=== PATIENT | female | born 1945 | race Caucasian/White ===

== ENCOUNTER 2022-07-27 20:00 | Emergency (ER) | payer MEDICARE, SELFPAY ==
[2022-07-27 20:09] VITALS: PULSE 93; RESP 16; TEMP 37.2; O2SAT 98; BMI 31.1
[2022-07-27 20:34] LABS: MANUAL DIFF FLAG NO
[2022-07-27 20:35] LABS: Basophils Absolute Auto 0.1 X10*3/uL (0.0-0.2); Basophils Percent Auto 0.5 % (0-2); Eosinophils Absolute Auto 0.1 X10*3/uL (0.0-0.4); Eosinophils Percent Auto 0.5 % (0-4); Hematocrit 47.9 % (37.0-47.0); Hemoglobin 15.8 g/dl (12.0-16.0); Imm Gran Abs Auto 0.03 X10*3/uL (0.00-0.03); Imm Gran Pct Auto 0.3 % (0.0-0.4); Lymphocytes Absolute Auto 1.1 X10*3/uL (1.2-4.9); Lymphocytes Percent Auto 9.9 % (20-40); Mean Corpuscular Hemoglobin 29.9 pg (27.0-33.0); Mean Corpuscular Volume 90.7 fL (80.0-98.0); Mean Platelet Volume 9.2 fL (9.4-12.3); Monocytes Percent Auto 8.8 % (2-11); Neutrophils Absolute Auto 8.7 x10*3/uL (2.0-8.3); Platelet Count 256 X10*3/uL (160-400); Red Blood Count 5.28 X10*6/uL (4.20-5.50); Red Cell Distribution Width 13.5 % (11.0-16.0); White Blood Count 10.9 X10*3/uL (4.8-10.8)
[2022-07-27 20:39] LABS: Appearance Urine Hazy; Color Urine RED; Glucose Urine UA Negative (Negative); Leukocyte Esterase Urine Large (3+) (Negative); Nitrite Urine Positive (Negative); UMIC TRIGGER UACC YES; Urine Blood Large (3+) (Negative); Urine Ketones Negative (Negative); Urine Protein 100 (2+) mg/dL (Neg-Trace)
[2022-07-27 20:43] LABS: Bacteria Urine None Seen (None Seen); RBC Urine >20 /HPF (0-2); Squamous Epithelial Cell Urine 0-2 /HPF (0-2); UACC Culture Trigger YES
[2022-07-27 20:44] LABS: Hyaline Casts Urine 0-2 /LPF (0-2)
[2022-07-27 20:56] LABS: Alanine Aminotransferase 20 U/L (0-31); Albumin Level 4.3 g/dL (3.5-5.0); Alkaline Phosphatase 88 U/L (39-117); Anion Gap 15 (12-20); Aspartate Amino Transferase 19 U/L (5-31); Bilirubin Total 0.6 mg/dL (0.0-1.0); Blood Urea Nitrogen 27 mg/dL (9-16); Calcium 10.7 mg/dL (8.4-10.2); Carbon Dioxide 33 mmol/L (22-29); Chloride 95 mmol/L (96-108); Creatinine Clr Calc Pharmacy 38.5; Estimated Glomerular Filt Rate 46; Glucose Random 99 mg/dL (60-115); Potassium 3.8 mmol/L (3.3-5.1); Sodium 139 mmol/L (135-145); Total Protein 6.9 g/dL (6.5-8.0)
--- NOTE | 2022-07-28 00:08 | ED_ITS ---
HPI - Female Genitourinary General Chief complaint: Urogenital-Female Stated complaint: bladder infection Time Seen by Provider: 07/27/22 23:45 Source: patient and family Mode of arrival: ambulatory Limitations: no limitations History of Present Illness HPI Narrative: patient comes to the emergency room complaining hematuria and dysuria for 1 day. also, patient has suprapubic pressure. Patient states that she has had UTIs in the past and it feels very similar. Patient denies fever or chills, no flank pain. Patient called her primary care physician today, patient was asked to come to the emergency room if she develops any discomfort. Patient has an appointment tomorrow with her PCP Related Data Previous Rx's Medication Instructions Recorded levofloxacin 500 mg tablet 500 mg PO DAILY #7 tabs 07/28/22 phenazopyridine 100 mg tablet 100 mg PO TID 6 doses #6 tabs 07/28/22 Allergies Allergy/AdvReac Type Severity Reaction Status Date / Time Penicillins Allergy Intermediate Rash Verified 07/27/22 20:08 Sulfa (Sulfonamide Allergy Intermediate Rash Verified 07/27/22 20:08 Antibiotics) Review of Systems Review of Systems: Constitutional : No Weight loss, No Fever, No Chills, No Night Sweats, No Fatigue, No Malaise ENT/Mouth : No Hearing loss, No Ear Pain, No Nasal Congestion, No Sinus Pain, No Hoarseness, No sore throat, No Rhinorrhea, No Swallowing Difficulty Eyes: No Eye Pain, No Swelling, No Redness, No Foreign Body, No Discharge, No Vision Changes Cardiovascular : No Chest Pain, No SOB, No Dyspnea on Exertion, No Orthopnea, No Edema, No Palpitations Respiratory : No Cough, No Sputum, No Wheezing, No Smoke Exposure, No Dyspnea Gastrointestinal : No Nausea, No Vomiting, No Diarrhea, No Constipation, No abdominal Pain, No Hematochezia, No Melena Genitourinary : complaining of dysuria, hematuria and urinary frequency and suprapubic pressure, No Urinary Incontinence, No Urgency, No Flank Pain, No Urinary Flow Changes, No Hesitancy Musculoskeletal : No joint pain, No Myalgias, No Joint Swelling Skin : No Skin Lesions, No rash Neuro : No Weakness, No Numbness, No Paresthesias, No Loss of Consciousness, No Dizziness, No Headache Psych : No Anxiety/Panic, No Depression, No SI/HI/AH/VH, No Social Issues, Heme/Lymph: No Bruising, No Bleeding,No Lymphadenopathy Endocrine : No Polyuria, No Polydipsia, No Temperature Intolerance [facility] Past Medical History Medical History (Updated 07/28/22 @ 00:12 by Aline Romero MD) Asthma CHF (congestive heart failure) Hypertension Physical Exam Vital Signs: Vital Signs: Last Vital Signs Temp 98.9 F 07/27/22 20:09 Pulse 93 07/27/22 20:09 Resp 16 07/27/22 20:09 Pulse Ox 98 07/27/22 20:09 O2 Del Method 07/27/22 20:09 BMI result Body Mass Index 31.1 Const: Other: Appearance: Alert. Oriented X3. No acute distress. Eyes: Pupils equal, round and reactive to light. ENT: Pharynx normal. Neck: Normal inspection. Neck supple. No lymph nodes noted. No crepitus CVS: Normal heart rate and rhythm. Pulses normal. Normal S1 and S2 Respiratory: No respiratory distress. Breath sounds normal. No Wheezing. No rales Abdomen: Soft, mild discomfort to palpation in the suprapubic area, no guarding, no rebound, no CVA tenderness Skin: Skin warm and dry. Normal skin color. Normal skin turgor. Extremities: No lower extremity edema. No Lacerations. No Rash Neuro: Oriented X 3. No motor deficit. No sensory deficit. Moving all extremities. No slurred speech. CN 2 through 12 grossly intact Psych: calm, cooperative, normal affect Course Course Course Narrative: patient has a mildly elevated white blood cell count. Patient does have a UTI. Patient is allergic to penicillins and sulfas. Patient will be given Levaquin. First dose given in the emergency room along with phenazopyridine. MDM - Female Genitourinary Lab Data Result diagrams: 07/27/22 20:28 07/27/22 20:28 Labs: Lab Results 07/27/22 07/27/22 07/27/22 Range/Units 20:28 20:28 20:28 WBC 10.9 H (4.8-10.8) X10*3/uL RBC 5.28 (4.20-5.50) X10*6/uL Hgb 15.8 (12.0-16.0) g/dl Hct 47.9 H (37.0-47.0) % MCV 90.7 (80.0-98.0) fL MCH 29.9 (27.0-33.0) pg MCHC 33.0 (31.0-35.0) g/dl RDW 13.5 (11.0-16.0) % Plt Count 256 (160-400) X10*3/uL MPV 9.2 L (9.4-12.3) fL Immature Gran % (Auto) 0.3 (0.0-0.4) % Neut % (Auto) 80.0 H (45-73) % Lymph % (Auto) 9.9 L (20-40) % [place] % (Auto) 8.8 (2-11) % Eos % (Auto) 0.5 (0-4) % Baso % (Auto) 0.5 (0-2) % Lymph # (Auto) 1.1 L (1.2-4.9) X10*3/uL [place] # (Auto) 1.0 (0.1-1.2) X10*3/uL Eos # (Auto) 0.1 (0.0-0.4) X10*3/uL Baso # (Auto) 0.1 (0.0-0.2) X10*3/uL Abs Immat Gran (auto) 0.03 (0.00-0.03) X10*3/uL Absolute Neuts (auto) 8.7 H (2.0-8.3) x10*3/uL Absolute Nucleated RBC 0.000 (0.0-0.012) X10*3/uL Nucleated RBC % (auto) 0.0 (0.0-0.2) /100WBC Sodium 139 (135-145) mmol/L Potassium 3.8 (3.3-5.1) mmol/L Chloride 95 L (96-108) mmol/L Carbon Dioxide 33 H (22-29) mmol/L Anion Gap 15 (12-20) BUN 27 H (9-16) mg/dL Creatinine 1.15 (0.5-1.4) mg/dL Estim Creat Clear Calc 38.5 Estimated GFR 46 Random Glucose 99 (60-115) mg/dL Calcium 10.7 H (8.4-10.2) mg/dL Total Bilirubin 0.6 (0.0-1.0) mg/dL AST 19 (5-31) U/L ALT 20 (0-31) U/L Alkaline Phosphatase 88 (39-117) U/L Total Protein 6.9 (6.5-8.0) g/dL Albumin 4.3 (3.5-5.0) g/dL Urine Color RED Urine Appearance Hazy Urine pH 6.0 (5.0-9.0) Ur Specific [place] 1.020 (1.005-1.025) Urine Protein 100 (2+) H (Neg-Trace) mg/dL Urine Glucose (UA) Negative (Negative) mg/dL Urine Ketones Negative (Negative) mg/dL Urine Blood Large (3+) H (Negative) Urine Nitrite Positive H (Negative) Ur Leukocyte Esterase Large (3+) H (Negative) Urine RBC >20 H (0-2) /HPF Urine WBC 6-10 (0-5) /HPF Ur Squamous Epith Cells 0-2 (0-2) /HPF Urine Bacteria None Seen (None Seen) Hyaline Casts 0-2 (0-2) /LPF Discharge Plan Discharge Clinical Impression: Urinary tract infection Patient Disposition: Home, Self-Care Instructions: Urinary Tract Infection in Older Adults (ED) Additional Instructions: Please follow-up with your primary care physician tomorrow. If you have any worsening or new symptoms, please return to the emergency room or call 911 Prescriptions: New levofloxacin 500 mg tablet 500 mg PO DAILY Qty: 7 0RF phenazopyridine 100 mg tablet 100 mg PO TID Qty: 6 0RF
[2022-07-28] MEDS: Phenazopyridine HCL 100 MG TABLET PO (00:47)
[2022-07-28] MEDS: levoFLOXacin 500 MG TABLET PO (00:47)
== END 2022-07-28 00:55 | disposition home or self-care (01) ==
PROVIDERS: Emergency Provider Emergency Medicine; PCP Nurse Practitioner Family
DX: N39.0 Urinary tract infection, site not specified (principal); B96.20 Unspecified Escherichia coli [E. coli] as the cause of diseases classified elsewhere; I11.0 Hypertensive heart disease with heart failure; I50.9 Heart failure, unspecified
CPT/HCPCS: 36415; 80053; 81001; 85025; 87086; 87186; 99283

== ENCOUNTER 2023-07-25 08:01 | Day surgery (SDC) | payer MEDICARE, SELFPAY ==
[2023-07-20 09:40] VITALS: BMI 30.4
[2023-07-20 14:29] VITALS: BMI 30.4
--- NOTE | 2023-07-22 08:21 | MHC.SHP ---
Pre-Procedural Eval Section A Date of Service: 07/22/23 The patient is an INPATIENT: No Changes since office visit: No Cold of Flu in the past 2 weeks, No New Medical Problems, No Changes in Medication and No Patient answered all questions The History & Physical has been completed within 30 days and I have reviewed it.: Yes Section B Chief Complaint: Age-related nuclear cataract, right eye Allergies: Allergies Allergy/AdvReac Type Severity Reaction Status Date / Time amoxicillin Allergy Intermediate rash/nausea Verified 07/20/23 14:29 losartan Allergy Intermediate Shortness Verified 07/20/23 09:39 of Breath Penicillins Allergy Intermediate Rash/nausea Verified 07/20/23 14:29 Sulfa (Sulfonamide Allergy Intermediate Rash Verified 07/27/22 20:08 Antibiotics) Plan Diagnosis/Plan: Unchanged I have reviewed the history and physical and performed a pertinent physical examination on my patient. No changes have occurred unless specified. Time Spent With Patient Time: Total time managing care of this patient today ____ minutes.
--- OUTSIDE RECORDS SUMMARY | 2023-07-25 08:03 | XMS_ITS | Continuity of Care Document ---
Author Name Unknown Organization [facility] Troy Ball Martinez lt Address [address] [place] [id number] Care Team Providers Care Port Engineer Name Role Phone Ash MURPHY, Dory Mckeon Primary Care Physician [phone] [place] [facility] [place] 01/04/22 - 01/11/22 DIONISIO Ball Adult [address] [place] [address]- Encounter Diagnosis COPD without exacerbation(Discharge Diagnosis) - 01/04/22 Hypertension(Discharge Diagnosis) - 01/04/22 Hyperlipidemia(Discharge Diagnosis) - 01/04/22 Attending Physician: Ash MURPHY, Dory Mckeon Allergies, Adverse Reactions, Alerts Substance Reaction Severity Status amoxicillin Active losartan shortness of breath Active penicillins 1 Active sulfa drugs Rash Active 1rash Immunizations Given and Recorded Vaccine Date Status Refusal Reason SARS-CoV-2 (COVID-19) mRNA-1273 vaccine 1 09/25/21 Recorded SARS-CoV-2 (COVID-19) mRNA-1273 vaccine 01/17/21 R ecorded SARS-CoV-2 (COVID-19) mRNA-1273 vaccine 12/18/20 R ecorded pneumococcal 23-valent vaccine 11/07/11 Recorded diphtheria/tetanus/pertussis, acel(DTaP) 11/07/10 Recorded Not Given Vaccine Date Status Refusal Reason Influenza Virus Vaccine (oldterm) 12/28/19 Not Giv en Patient Refuses 1Result Comment: [facility] Lot [id number] Medications albuterol CFC free 90 mcg/inh inhalation aerosol 2, puffs, Inhalation, Every 4 hours, PRN, # 18 Gm, Refills 5, Tot. Refills 5, Maintenance, :59:00 EDT, Aerosol, Route to Pharmacy Electronically, [id number], [facility] # 50, 155.4, cm, 06/30/21 11:00:00 EDT, He... Start Date: 07/14/21 Status: Ordered Anoro Ellipta 62.5 mcg-25 mcg/inh inhalation powder 1 puffs, Inhalation, Daily, # 60 each, 11 Refills, Maintenance, 07/23/21 13:13:00 EDT, Powder, [facility] # [facility], Partial fill upon patient request if the prescription is for a schedule II opioid drug., 1 puffs Inhalation Daily, 155.4, cm, 06/30/21... Start Date: 07/23/21 Status: Ordered atorvastatin 10 mg oral tablet See Instructions, TAKE ONE TABLET BY MOUTH EVERY DAY, # 90 tablet, 1 Refills, Maintenance, 12/16/2213:28:00 EST, [facility] # [facility], 155.4, cm, 10/22/21 11:57:00 EST, Height Start Date: 12/16/21 Status: Ordered Nasacort Allergy 24HR 55 mcg/inh nasal spray 2 sprays, Nares, Both, Daily, # 16.5 Gm, 5 Refills, Maintenance, 12/28/19 10:55:00 EST, [facility] # [facility], 2 sprays Nares, Both Daily, 155.4, cm, 12/28/19 10:37:00 EST, Height Start Date: 12/28/19 Status: Ordered Sitz bath Sitz bath, See Instructions, # 1 each, Refills 0, Tot. Refills 0, Maintenance, use 2-3x/day, 01/21/21 10:59:00 EDT, Supply Start Date: 01/21/21 Status: Ordered spironolactone 25 mg oral tablet 25 mg, 1, tablet, By Mouth, Daily, replace amlodipine and hctz, # 30 tablet, Refills 0, Tot. Refills 0, Maintenance, 01/04/22 10:39:00 EST, Route to Pharmacy Electronically, [facility] # [facility], Partial fill upon patient request if the prescription is... Start Date: 01/04/22 Status: Ordered Problem List Condition Effective Dates Status Health Status Inform ant Allergic rhinitis(Confirmed) Active COPD without exacerbation(Confirmed) Active Hyperlipidemia(Confirmed) Active Hypertension(Confirmed) Active Lightheadedness(Confirmed) Active Obese class I(Confirmed) Active Osteoporosis(Confirmed) 08/28/15 Active Diagnosis Diagnosis Type Effective Dates Health Status Clinical Service Informant COPD without exacerbation Discharge Diagnosis 01/04/22 Hypertension Discharge Diagnosis 01/04/22 Hyperlipidemia Discharge Diagnosis 01/04/22 Vital Signs Most recent to oldest [Reference Range]: 1 Height 155.4 cm (01/04/22 10:10 AM) Weight 77 kg (01/04/22 10:10 AM) Oxygen Saturation [94-100 %] 97 % (01/04/22 10:10 AM) Pulse Rate [55-90 bpm] 97 bpm *H* (01/04/22 10:10 AM) Body Mass Index [18.5-24.99] 31.89 *>HHI* (01/04/22 10:10 AM) Blood Pressure [90-138/55-84 mm Hg] 137/ 70mm Hg (01/04/22 10:10 AM) Temperature [96.8-100.4 DegF] 97.6 DegF (01/04/22 10:10 AM) Blood pressure sites Arm, right (01/04/22 10:10 AM) Temperature Route Oral (01/04/22 10:10 AM) Weight Obtained Via Standing scale (01/04/22 10:10 AM) Social History Social History Type Response Smoking Status Former smoker, quit more than 30 days ago entered on: 06/21/19 Sex
--- OUTSIDE RECORDS SUMMARY | 2023-07-25 08:03 | XMS_ITS | Continuity of Care Document ---
Author Name Unknown Organization [facility] Troy Ball Martinez lt Address [address] [place] [address]- Care Team Providers Care Cuprous Chloride Helper Name Role Phone Ash MURPHY, Dory Mckeon Primary Care Physician Encounter [facility] [place] Date(s): 07/28/22 - 08/27/22 DIONISIO Ball Adult [address] [place] [address]- Attending Physician: Admtr, Ar8 Admitting Physician: Admtr, Ar8 Referring Physician: Admtr, Ar8 Allergies, Adverse Reactions, Alerts Substance Reaction Severity Status amoxicillin Active losartan shortness of breath Active penicillins 1 Active sulfa drugs Rash Active 1rash Immunizations Given and Recorded Vaccine Date Status Refusal Reason SARS-CoV-2 (COVID-19) mRNA-1273 vaccine 1 04/27/22 Recorded SARS-CoV-2 (COVID-19) mRNA-1273 vaccine 2 09/25/21 Recorded SARS-CoV-2 (COVID-19) mRNA-1273 vaccine 01/17/21 R ecorded SARS-CoV-2 (COVID-19) mRNA-1273 vaccine 12/18/20 R ecorded pneumococcal 23-valent vaccine 11/07/11 Recorded diphtheria/tetanus/pertussis, acel(DTaP) 11/07/10 Recorded Not Given Vaccine Date Status Refusal Reason Influenza Virus Vaccine (oldterm) 12/28/19 Not Giv en Patient Refuses 1Result Comment: [employer] [facility] 2Result Comment: [facility] Lot [id number] Medications albuterol CFC free 90 mcg/inh inhalation aerosol 2, puffs, Inhalation, Every 4 hours, PRN, # 18 Gm, Refills 5, Tot. Refills 5, Maintenance, 03/04/2210:37:00 EDT, Aerosol, Route to Pharmacy Electronically, [id number], [facility] # [facility], 155.4, cm, 03/04/22 10:34:00 EDT, H... Start Date: 03/04/22 Status: Ordered Christine By Mouth, 0 Refills, Maintenance, 03/30/22 11:54:00 EDT, Partial fill upon patient request if the prescription is for a schedule II opioid drug. Start Date: 03/30/22 Status: Ordered Anoro Ellipta 62.5 mcg-25 mcg/inh inhalation powder 1 puffs, Inhalation, Daily, # 60 each, 11 Refills, Maintenance, 03/04/22 10:37:00 EDT, Powder, [facility] # [facility], Partial fill upon patient request if the prescription is for a schedule II opioid drug., 1 puffs Inhalation Daily, 155.4, cm, 03/04/22... Start Date: 03/04/22 Status: Ordered atorvastatin 10 mg oral tablet See Instructions, TAKE ONE TABLET BY MOUTH EVERY DAY, # 90 Unknown, 1 Refills, Maintenance, 06/23/22 16:31:00 EDT, [facility] # [facility], 155.4, cm, 06/03/22 12:42:00 EDT, Height Start Date: 06/23/22 Status: Ordered [place] Saline Nasal Mist 4 times a day, 0 Refills, Maintenance, 03/30/22 11:55:00 EDT, Partial fill upon patient request if the prescription is for a schedule II opioid drug. Start Date: 03/30/22 Status: Ordered chlorthalidone 50 mg oral tablet 1 tablet = 50 mg, By Mouth, Daily, # 90 tablet, 0 Refills, Maintenance, 03/29/22 15:16:00 EDT, Tablet, Partial fill upon patient request if the prescription is for a schedule II opioid drug. Start Date: 03/29/22 Status: Ordered Nasacort Allergy 24HR 55 mcg/inh nasal spray 2 sprays, Nares, Both, Daily, # 16.5 Gm, 5 Refills, Maintenance, 12/28/19 10:55:00 EST, [facility] # [facility], 2 sprays Nares, Both Daily, 155.4, cm, 12/28/19 10:37:00 EST, Height Start Date: 12/28/19 Status: Ordered Sitz bath Sitz bath, See Instructions, # 1 each, Refills 0, Tot. Refills 0, Maintenance, use 2-3x/day, 01/21/21 10:59:00 EDT, Supply Start Date: 01/21/21 Status: Ordered Problem List Condition Confirmation Course Effective Dates Status Health Status Informant Allergic rhinitis Confirmed Active COPD without exacerbation Confirmed Active Hyperlipidemia Confirmed Active Hypertension Confirmed Active Lightheadedness Confirmed Active Obese class I Confirmed Active Osteoporosis Confirmed 08/28/15 Active Primary hyperparathyroidism Confirmed Active Procedures Procedure Date Related Diagnosis Body Site Status Bone density scan 1 10/05/19 Compl eted Bone density scan 2, 3 08/28/15 Co mpleted [address] [place] [address] [facility] Social History Social History Type Response Smoking Status Former smoker, quit more than 30 days ago entered on: 06/21/19 Sex Patient Care team information Personnel Name: Ash MURPHY, Dory Mckeon Address: Address: [address] [place] [id number]
--- OUTSIDE RECORDS SUMMARY | 2023-07-25 08:03 | XMS_ITS | Continuity of Care Document ---
Author Name Unknown Organization [facility] Troy Ball Martinez lt Address [address] [place] [address]- Care Team Providers Care Enrollment Management Vice President Name Role Phone Ash MURPHY, Dory Mckeon Primary Care Physician [phone] Encounter [facility] [place] Date(s): 02/03/22 - 02/10/22 DIONISIO Ball Adult [address] [place] [address]- Encounter Diagnosis Hypertension(Discharge Diagnosis) - 02/05/22 Serum calcium elevated(Discharge Diagnosis) - 02/05/22 Hyperlipidemia(Discharge Diagnosis) - 02/05/22 Attending Physician: Ash MURPHY, Dory Mckeon Referring Physician: Angella ANDERSON, Roger Browne Allergies, Adverse Reactions, Alerts Substance Reaction Severity [...] 1Result Comment: [facility] Lot [id number] Medications albuterol CFC free 90 mcg/inh inhalation aerosol 2, puffs, Inhalation, Every 4 hours, PRN, # 18 Gm, Refills 5, Tot. Refills 5, Maintenance, 219:59:00 EDT, Aerosol, Route to Pharmacy Electronically, [id number], [facility] # 50, 155.4, cm, 06/30/21 11:00:00 EDT, He... Start Date: 07/14/21 Status: Ordered Anoro Ellipta 62.5 mcg-25 mcg/inh inhalation powder 1 puffs, Inhalation, Daily, # 60 each, 11 Refills, Maintenance, 07/23/21 13:13:00 EDT, Powder, [facility] # [facility], Partial fill upon patient request if the prescription is for a schedule II opioid drug., 1 puffs Inhalation Daily, 155.4, cm, 06/30/21... Start Date: 07/23/21 Status: Ordered atorvastatin 10 mg oral tablet See Instructions, TAKE ONE TABLET BY MOUTH EVERY DAY, # 90 tablet, 1 Refills, Maintenance, 12/16/2213:28:00 EST, [facility] # [facility], 155.4, cm, 10/22/21 11:57:00 EST, Height Start Date: 12/16/21 Status: Ordered carvedilol 3.125 mg oral tablet 3.125 mg, 1, tablet, By Mouth, 2 times a day, # 60 tablet, Refills 0, Tot. Refills 0, Maintenance, 02/05/22 15:29:00 EDT, Route to Pharmacy Electronically, [facility] # [facility], Partial fill upon patient request if the prescription is for a schedule II... Start Date: 02/05/22 Status: Ordered Nasacort Allergy 24HR 55 mcg/inh nasal spray 2 sprays, Nares, Both, Daily, # 16.5 Gm, 5 Refills, Maintenance, 12/28/19 10:55:00 EST, [facility] # 50, 2 sprays Nares, Both Daily, 155.4, cm, 12/28/19 10:37:00 EST, Height Start Date: 12/28/19 Status: Ordered Sitz bath Sitz bath, See Instructions, # 1 each, Refills 0, Tot. Refills 0, Maintenance, use 2-3x/day, 01/21/21 10:59:00 EDT, Supply Start Date: 01/21/21 Status: Ordered Problem List Condition Effective Dates Status Health Status Inform ant Allergic rhinitis(Confirmed) Active COPD without exacerbation(Confirmed) Active Hyperlipidemia(Confirmed) Active Hypertension(Confirmed) Active Lightheadedness(Confirmed) Active Obese class I(Confirmed) Active Osteoporosis(Confirmed) 08/28/15 Active Diagnosis Diagnosis Type Effective Dates Health Status Clinical Service Informant Hypertension Discharge Diagnosis 02/05/22 Serum calcium elevated Discharge Diagnosis 02/05/22 Hyperlipidemia Discharge Diagnosis 02/05/22 Vital Signs Most recent to oldest [Reference Range]: 1 Height 155.4 cm (02/03/22 11:49 AM) Weight 75.4 kg (02/03/22 11:49 AM) Oxygen Saturation [94-100 %] 97 % (02/03/22 11:49 AM) Pulse Rate [55-90 bpm] 79 bpm (02/03/22 11:49 AM) Body Mass Index [18.5-24.99] 31.22 *>HHI* (02/03/22 11:49 AM) Blood Pressure [90-138/55-84 mm Hg] 126/ 74mm Hg (02/03/22 11:49 AM) Temperature [96.8-100.4 DegF] 97.8 DegF (02/03/22 11:49 AM) Blood pressure sites Arm, left (02/03/22 11:49 AM) Temperature Route Temporal (02/03/22 11:49 AM) Weight Obtained Via Standing scale (02/03/22 11:49 AM) Social History Social History Type Response Smoking Status Former smoker, quit more than 30 days ago entered on: 06/21/19 Sex
--- OUTSIDE RECORDS SUMMARY | 2023-07-25 08:03 | XMS_ITS | Continuity of Care Document ---
Author Name Unknown Organization [facility] Troy Goodman Martinez lt Address [address] [place] [address]- Care Team Providers Care Heat Treater Name Role Phone Erich Hoskins MD Primary Care Physician Encounter [facility] Date(s): 07/23/21 - 08/22/21 [facility] Troy Goodman Adult [address] [place] [address]- Encounter Diagnosis COPD GOLD class D(Discharge Diagnosis) - 07/23/21 Allergies, Adverse Reactions, Alerts Substance Reaction Severity Status amoxicillin Active penicillins 1 Active sulfa drugs Rash Active 1rash Immunizations Given and Recorded Vaccine Date Status Refusal Reason SARS-CoV-2 (COVID-19) mRNA-1273 vaccine 01/17/21 R ecorded SARS-CoV-2 (COVID-19) mRNA-1273 vaccine 12/18/20 R ecorded pneumococcal 23-valent vaccine 11/07/11 Recorded diphtheria/tetanus/pertussis, acel(DTaP) 11/07/10 Recorded Not Given Vaccine Date Status Refusal Reason Influenza Virus Vaccine (oldterm) 12/28/19 Not Giv en Patient Refuses Medications albuterol CFC free 90 mcg/inh inhalation aerosol 2, puffs, Inhalation, Every 4 hours, PRN, # 18 Gm, Refills 5, Tot. Refills 5, Maintenance, :59:00 EDT, Aerosol, Route to Pharmacy Electronically, [id number], [facility], 155.4, cm, 06/30/21 11:00:00 EDT, He... Start Date: 07/14/21 Status: Ordered Christine Allergy = 60 mg, By Mouth, 2 times a day, 0 Refills, Maintenance, 05/26/21 11:16:00 EDT, Partial fill upon patient request if the prescription is for a schedule II opioid drug. Start Date: 05/26/21 Status: Ordered amLODIPine 5 mg oral tablet See Instructions, TAKE ONE TABLET BY MOUTH EVERY DAY AT BEDTIME, # 90 tablet, 1 Refills, [facility], 155.4, cm, 06/30/21 11:00:00 EDT, Height Start Date: 07/31/21 Status: Ordered Anoro Ellipta 62.5 mcg-25 mcg/inh inhalation powder 1 puffs, Inhalation, Daily, # 60 each, 11 Refills, Maintenance, 07/23/21 13:13:00 EDT, Powder, [facility] # [facility], Partial fill upon patient request if the prescription is for a schedule II opioid drug., 1 puffs Inhalation Daily, 155.4, cm, 06/30/21... Start Date: 07/23/21 Status: Ordered aspirin 81 mg oral delayed release tablet 81 mg, 1, tablet, By Mouth, Daily, # 90 tablet, Refills 3, Tot. Refills 3, Maintenance, 06/26/20 10:45:00 EDT, Route to Pharmacy Electronically, [facility], 155.4, cm, 12/28/19 10:37:00 EST,Height Start Date: 06/26/20 Status: Ordered atorvastatin 10 mg oral tablet 1 tablet = 10 mg, By Mouth, Daily, # 90 tablet, 1 Refills, Maintenance, 06/24/21 14:03:00 EDT, [facility] # [facility], 155.4, cm, 05/26/21 11:13:00 EDT, Height Start Date: 06/24/21 Status: Ordered hydrochlorothiazide 25 mg oral tablet 1, tablet, By Mouth, Daily, # 90 tablet, Refills 3, Route to Pharmacy Electronically, [facility] # [facility], 155.4, cm, 06/30/21 11:00:00 EDT, Height Start Date: 07/31/21 Status: Ordered losartan 100 mg oral tablet 1 tablet = 100 mg, By Mouth, Daily, # 90 tablet, 3 Refills, Maintenance, 07/08/20 16:41:00 EDT, Tablet, [facility] # [facility], 155.4, cm, 07/08/20 16:29:00 EDT, Height Start Date: 07/08/20 Status: Ordered Nasacort Allergy 24HR 55 mcg/inh nasal spray 2 sprays, Nares, Both, Daily, # 16.5 Gm, 5 Refills, Maintenance, 12/28/19 10:55:00 EST, [facility], 2 sprays Nares, Both Daily, 155.4, cm, 12/28/19 10:37:00 EST, Height Start Date: 12/28/19 Status: Ordered Sitz bath Sitz bath, See Instructions, # 1 each, Refills 0, Tot. Refills 0, Maintenance, use 2-3x/day, 01/21/21 10:59:00 EDT, Supply Start Date: 01/21/21 Status: Ordered Problem List Condition Effective Dates Status Health Status Inform ant Allergic rhinitis(Confirmed) Active COPD without exacerbation(Confirmed) Active Shortness of breath(Confirmed) Active Hyperlipidemia(Confirmed) Active Hypertension(Confirmed) Active Lightheadedness(Confirmed) Active Osteoporosis(Confirmed) 08/28/15 Active Diagnosis Diagnosis Type Effective Dates Health Status Cl inical Service Informant COPD GOLD class D Discharge Diagnosis 07/23/21 Non-Specified Social History Social History Type Response Smoking Status Former smoker, quit more than 30 days ago entered on: 06/21/19 Sex
--- OUTSIDE RECORDS SUMMARY | 2023-07-25 08:03 | XMS_ITS | Continuity of Care Document ---
Author Name Unknown Organization [facility] Rex Martinez lt Address [address] [place] [address]- Care Team Providers Care Supervisor Doping Name Role Phone Gato ANDERSON, Erich Barrera Primary Care Physician En[place] [facility] [place] Date(s): 01/21/21 - 01/28/21 [facility] Troy Bondsley Adult [address] [place] [address]- Encounter Diagnosis Ear congestion(Discharge Diagnosis) - 01/21/21 Hemorrhoids(Discharge Diagnosis) - 01/21/21 Attending Physician: Basil AGENT CONTRACT CLERK, Zoe Allergies, Adverse Reactions, Alerts Substance Reaction Severity Status penicillins 1 Active sulfa drugs Rash Active 1rash Immunizations Given and Recorded Vaccine Date Status Refusal Reason SARS-CoV-2 (COVID-19) mRNA-1273 vaccine 01/17/21 R ecorded SARS-CoV-2 (COVID-19) mRNA-1273 vaccine 12/18/20 R ecorded pneumococcal 23-valent vaccine 11/07/11 Recorded diphtheria/tetanus/pertussis, acel(DTaP) 11/07/10 Recorded Not Given Vaccine Date Status Refusal Reason Influenza Virus Vaccine (oldterm) 12/28/19 Not Giv en Patient Refuses Medications aspirin 81 mg oral delayed release tablet 81 mg, 1, tablet, By Mouth, Daily, # 90 tablet, Refills 3, Tot. Refills 3, Maintenance, 06/26/20 10:45:00 EDT, Route to Pharmacy Electronically, [facility] 155.4, cm, 12/28/19 10:37:00 EST,Height Start Date: 06/26/20 Status: Ordered atorvastatin 10 mg oral tablet 1 tablet = 10 mg, By Mouth, Daily, # 90 tablet, 3 Refills, Maintenance, 06/26/20 10:45:00 EDT, [facility] # [facility], 155.4, cm, 12/28/19 10:37:00 EST, Height Start Date: 06/26/20 Status: Ordered Claritin 5 mg oral tablet, chewable 1 tablet = 5 mg, Daily, 0 Refills, Maintenance, 09/27/19 11:32:24 EST Start Date: 09/27/19 Status: Ordered hydrochlorothiazide 25 mg oral tablet 25 mg, 1, tablet, By Mouth, Daily, # 90 tablet, Refills 3, Tot. Refills 3, Maintenance, 06/26/20 10:46:00 EDT, Route to Pharmacy Electronically, [facility], 155.4, cm, 12/28/19 10:37:00 EST,Height Start Date: 06/26/20 Status: Ordered losartan 100 mg oral tablet 1 tablet = 100 mg, By Mouth, Daily, # 90 tablet, 3 Refills, Maintenance, 07/08/20 16:41:00 EDT, Tablet, [facility] # [facility], 155.4, cm, 07/08/20 16:29:00 EDT, Height Start Date: 07/08/20 Status: Ordered Nasacort Allergy 24HR 55 mcg/inh nasal spray 2 sprays, Nares, Both, Daily, # 16.5 Gm, 5 Refills, Maintenance, 12/28/19 10:55:00 EST, [facility] # [facility], 2 sprays Nares, Both Daily, 155.4, cm, 12/28/19 10:37:00 EST, Height Start Date: 12/28/19 Status: Ordered Sitz bath Sitz bath, See Instructions, # 1 each, Refills 0, Tot. Refills 0, Maintenance, use 2-3x/day, 01/21/21 10:59:00 EDT, Supply Start Date: 01/21/21 Status: Ordered Problem List Condition Effective Dates Status Health Status Inform ant Allergic rhinitis(Confirmed) Active Hypertension(Confirmed) Active Osteoporosis(Confirmed) 08/28/15 Active Diagnosis Diagnosis Type Effective Dates Health Status Cl inical Service Informant Ear congestion Discharge Diagnosis 01/21/21 Hemorrhoids Discharge Diagnosis 01/21/21 Vital Signs Most recent to oldest [Reference Range]: 1 Height 155.4 cm (01/21/21 10:13 AM) Weight 76.0 kg (01/21/21 10:13 AM) Oxygen Saturation [94-100 %] 98 % (01/21/21 10:13 AM) Pulse Rate [55-90 bpm] 60 bpm (01/21/21 10:13 AM) Body Mass Index [18.5-24.99] 31.47 *>HHI* (01/21/21 10:13 AM) Blood Pressure [90-138/55-84 mm Hg] 128/ 82mm Hg (01/21/21 10:13 AM) Temperature [96.8-100.4 DegF] 98.9 DegF (01/21/21 10:13 AM) Blood pressure sites Arm, left (01/21/21 10:13 AM) Temperature Route Oral (01/21/21 10:13 AM) Social History Social History Type Response Smoking Status Former smoker, quit more than 30 days ago entered on: 06/21/19 Sex
--- OUTSIDE RECORDS SUMMARY | 2023-07-25 08:03 | XMS_ITS | Continuity of Care Document ---
Author Name Unknown Organization [facility] Troy Goodman Martinez lt Address [address] [place] [address]- Care Team Providers Care Filler In Name Role Phone Ash MURPHY, Dory Mckeon Primary Care Physician Encounter [facility] [place] Date(s): 02/23/22 - 03/02/22 DIONISIO Goodman Adult [address] [place] [address]- Attending Physician: Roger Perales MD Allergies, Adverse Reactions, Alerts Substance Reaction Severity [...] 1Result Comment: [facility] Lot [id number] Medications albuterol CFC free 90 mcg/inh inhalation aerosol 2, puffs, Inhalation, Every 4 hours, PRN, # 18 Gm, Refills 5, Tot. Refills 5, Maintenance, :59:00 EDT, Aerosol, Route to Pharmacy Electronically, [id number], [facility], 155.4, cm, 06/30/21 11:00:00 EDT, He... Start Date: 07/14/21 Status: Ordered Anoro Ellipta 62.5 mcg-25 mcg/inh inhalation powder 1 puffs, Inhalation, Daily, # 60 each, 11 Refills, Maintenance, 07/23/21 13:13:00 EDT, Powder, [facility] # [facility], Partial fill upon patient request if the prescription is for a schedule II opioid drug., 1 puffs Inhalation Daily, 155.4, cm, 06/30/21... Start Date: 07/23/21 Status: Ordered atorvastatin 10 mg oral tablet See Instructions, TAKE ONE TABLET BY MOUTH EVERY DAY, # 90 tablet, 1 Refills, Maintenance, 12/16/2213:28:00 EST, [facility] # [facility], 155.4, cm, 10/22/21 11:57:00 EST, Height Start Date: 12/16/21 Status: Ordered chlorthalidone 25 mg oral tablet 25 mg, 1, tablet, By Mouth, Daily, # 30 tablet, Refills 5, Tot. Refills 5, Maintenance, 03/02/22 13:53:00 EDT, Route to Pharmacy Electronically, [facility] # [facility], Partial fill upon patient requestif the prescription is for a schedule II opioid chito... Start Date: 03/02/22 Status: Ordered Nasacort Allergy 24HR 55 mcg/inh nasal spray 2 sprays, Nares, Both, Daily, # 16.5 Gm, 5 Refills, Maintenance, 12/28/19 10:55:00 EST, [facility] # [facility], 2 sprays Nares, Both [...] Obese class I(Confirmed) Active Osteoporosis(Confirmed) 08/28/15 Active Vital Signs Most recent to oldest [Reference Range]: 1 Height 155.4 cm (02/23/22 2:45 PM) Weight 77.1 kg (02/23/22 2:45 PM) Oxygen Saturation [94-100 %] 95 % (02/23/22 2:45 PM) Pulse Rate [55-90 bpm] 80 bpm (02/23/22 2:45 PM) Body Mass Index [18.5-24.99] 31.93 *>HHI* (02/23/22 2:45 PM) Blood Pressure [90-138/55-84 mm Hg] 157/ 64mm Hg *H* (02/23/22 2:45 PM) Temperature [96.8-100.4 DegF] 98.5 DegF (02/23/22 2:45 PM) Blood pressure sites Arm, left (02/23/22 2:45 PM) Temperature Route Oral (02/23/22 2:45 PM) Weight Obtained Via Standing scale (02/23/22 2:45 PM) Social History Social History Type Response Smoking Status Former smoker, quit more than 30 days ago entered on: 06/21/19 Sex
--- OUTSIDE RECORDS SUMMARY | 2023-07-25 08:04 | XMS_ITS | Continuity of Care Document ---
Author Name Unknown Organization [facility] Troy Goodman Martinez lt Address [address] [place] [address]- Care Team Providers Care Events Associate Name Role Phone Erich Hoskins MD Primary Care Physician [phone] Encounter [facility] [place] Date(s): 07/20/21 - 07/27/21 [facility] Troy Goodman Adult [address] [place] [address]- Attending Physician: Not on Staff, Attending MD Allergies, Adverse Reactions, Alerts Substance Reaction [...] :59:00 EDT, Aerosol, Route to Pharmacy Electronically, [id number], [facility], 155.4, cm, 06/30/21 11:00:00 EDT, He... Start Date: 07/14/21 Status: Ordered Christine Allergy = 60 mg, By Mouth, 2 times a day, 0 Refills, Maintenance, 05/26/21 11:16:00 EDT, Partial fill upon patient request if the prescription is for a schedule II opioid drug. Start Date: 05/26/21 Status: Ordered amLODIPine 5 mg oral tablet 5 mg, 1, tablet, By Mouth, Daily at bedtime, # 90 tablet, Refills 0, Tot. Refills 0, Maintenance, 05/04/21 11:13:00 EDT, Route to Pharmacy Electronically, [facility] # [facility], Partial fill upon patient request if the prescription is for a schedule II... Start Date: 05/04/21 Status: Ordered Anoro Ellipta 62.5 mcg-25 mcg/inh inhalation powder 1 puffs, Inhalation, Daily, # 60 each, 11 Refills, Maintenance, 07/23/21 13:13:00 EDT, Powder, [facility] # [facility], Partial fill upon patient request if the prescription is for a schedule II opioid drug., 1 puffs Inhalation Daily, 155.4, cm, 06/30/21... Start Date: 07/23/21 Status: Ordered aspirin 81 mg oral delayed release tablet 81 mg, 1, tablet, By Mouth, Daily, # 90 tablet, Refills 3, Tot. Refills 3, Maintenance, 06/26/20 10:45:00 EDT, Route to Pharmacy Electronically, [facility], 155.4, cm, 12/28/19 10:37:00 EST,Height Start Date: 06/26/20 Status: Ordered atorvastatin 10 mg oral tablet 1 tablet = 10 mg, By Mouth, Daily, # 90 tablet, 1 Refills, Maintenance, 06/24/21 14:03:00 EDT, [facility] # [facility], 155.4, cm, 05/26/21 11:13:00 EDT, Height Start Date: 06/24/21 Status: Ordered hydrochlorothiazide 25 mg oral tablet 25 mg, 1, tablet, By Mouth, Daily, # 90 tablet, Refills 3, Tot. Refills 3, Maintenance, 06/26/20 10:46:00 EDT, Route to Pharmacy Electronically, [facility], 155.4, cm, 12/28/19 10:37:00 EST,Height Start Date: 06/26/20 Status: Ordered losartan 100 mg oral tablet 1 tablet = 100 mg, By Mouth, Daily, # 90 tablet, 3 Refills, Maintenance, 07/08/20 16:41:00 EDT, Tablet, [facility], 155.4, cm, 07/08/20 16:29:00 EDT, Height Start Date: 07/08/20 Status: Ordered Nasacort Allergy 24HR 55 mcg/inh nasal spray 2 sprays, Nares, Both, Daily, # 16.5 Gm, 5 Refills, Maintenance, 12/28/19 10:55:00 EST, [facility], 2 sprays Nares, [...] Hypertension(Confirmed) Active Lightheadedness(Confirmed) Active Osteoporosis(Confirmed) 08/28/15 Active Social History Social History Type Response Smoking Status Former smoker, quit more than 30 days ago entered on: 06/21/19 Sex
--- OUTSIDE RECORDS SUMMARY | 2023-07-25 08:04 | XMS_ITS | Continuity of Care Document ---
Author Name Unknown Organization [facility] Address [address] [place] [address]- Care Team Providers Care Obiee Obia Solution Architect Name Role Phone Ash MURPHY, Dory Mckeon Primary Care Physician [phone] [place] [facility] [place] [facility] [id number] Date(s): 03/24/22 - 04/23/[address] [address] Attending Physician: Admtr, [id number] Admitting Physician: Admtr, [...] Not Giv en Patient Refuses 1Result Comment: [facility] Lot [id number] Medications albuterol CFC free 90 mcg/inh inhalation aerosol 2, puffs, Inhalation, Every 4 hours, PRN, # 18 Gm, Refills 5, Tot. Refills 5, Maintenance, 03/04/2210:37:00 EDT, Aerosol, Route to Pharmacy Electronically, [id number], [facility], 155.4, cm, 03/04/22 10:34:00 [...] 11 Refills, Maintenance, 03/04/22 10:37:00 EDT, Powder, [facility] # [facility], Partial fill upon patient request if the prescription is for a schedule II opioid drug., 1 puffs Inhalation Daily, 155.4, cm, 03/04/22... Start Date: 03/04/22 Status: Ordered atorvastatin 10 mg oral tablet See Instructions, TAKE ONE TABLET BY MOUTH EVERY DAY, # 90 tablet, 1 Refills, Maintenance, 12/16/2213:28:00 EST, [facility], 155.4, cm, 10/22/21 11:57:00 EST, Height Start Date: 12/16/21 Status: Ordered [place] Saline Nasal Mist 4 times a day, [...] Gm, 5 Refills, Maintenance, 12/28/19 10:55:00 EST, [facility], 2 sprays Nares, [...] Obese class I(Confirmed) Active Osteoporosis(Confirmed) 08/28/15 Active Social History Social History Type Response Smoking Status Former smoker, quit more than 30 days ago entered on: 06/21/19 Sex
--- OUTSIDE RECORDS SUMMARY | 2023-07-25 08:04 | XMS_ITS | Continuity of Care Document ---
Author Name Unknown Organization [facility] Address [address] [address]- Care Team Providers Care Theater Education Teacher Name Role Phone Erich Hoskins MD Primary Care Physician [place] [facility] [place] 10[place] [facility] [address] [address] Attending Physician: Pavan Sauceda MD Admitting Physician: Pavan Sauceda MD Referring Physician: Erich Hoskins MD Allergies, Adverse Reactions, Alerts Substance Reaction [...] :59:00 EDT, Aerosol, Route to Pharmacy Electronically, [id number], [facility], 155.4, cm, 06/30/21 11:00:00 EDT, He... Start Date: 07/14/21 Status: Ordered amLODIPine 5 mg oral tablet See Instructions, TAKE ONE TABLET BY MOUTH EVERY DAY AT BEDTIME, # 90 tablet, 1 Refills, [facility], 155.4, cm, 06/30/21 11:00:00 EDT, Height Start Date: 07/31/21 Status: Ordered Anoro Ellipta 62.5 mcg-25 mcg/inh inhalation powder 1 puffs, Inhalation, Daily, # 60 each, 11 Refills, Maintenance, 07/23/21 13:13:00 EDT, Powder, [facility] # [facility], Partial fill upon patient request if the prescription is for a schedule II opioid drug., 1 puffs Inhalation Daily, 155.4, cm, 06/30/21... Start Date: 07/23/21 Status: Ordered atorvastatin 10 mg oral tablet 1 tablet = 10 mg, By Mouth, Daily, # 90 tablet, 1 Refills, Maintenance, 06/24/21 14:03:00 EDT, [facility], 155.4, cm, 05/26/21 11:13:00 EDT, Height Start Date: 06/24/21 Status: Ordered hydrochlorothiazide 25 mg oral tablet 1, tablet, By Mouth, Daily, # 90 tablet, Refills 3, Route to Pharmacy Electronically, [facility], 155.4, cm, 06/30/21 11:00:00 EDT, Height Start Date: 07/31/21 Status: Ordered Nasacort Allergy 24HR 55 mcg/inh [...]
--- OUTSIDE RECORDS SUMMARY | 2023-07-25 08:04 | XMS_ITS | Continuity of Care Document ---
Author Name Unknown Organization [facility] Rex Martinez lt Address [address] [place] [address]- Care Team Providers Care Specimen Technician Name Role Phone Ash MURPHY, Dory Mckeon Primary Care Physician En[place] [facility] [place] Date(s): 08/17/22 - 09/16/22 [facility] Troy Bondsley Adult [address] [place] [address]- Allergies, Adverse Reactions, Alerts Substance Reaction Severity [...] Not Giv en Patient Refuses 1Result Comment: [facility] 2Result Comment: [employer] [facility] [facility] Lot [id number] Medications albuterol CFC free 90 mcg/inh inhalation aerosol 2, puffs, Inhalation, Every 4 hours, PRN, # 18 Gm, Refills 5, Tot. Refills 5, Maintenance, 03/04/2210:37:00 EDT, Aerosol, Route to Pharmacy Electronically, [id number], [facility], 155.4, cm, 03/04/22 10:34:00 [...] EDT, Height Start Date: 06/23/22 Status: Ordered [place] Saline Nasal Mist 4 times a day, 0 Refills, Maintenance, 03/30/22 11:55:00 EDT, Partial fill upon patient request if the prescription is for a schedule II opioid drug. Start Date: 03/30/22 Status: Ordered chlorthalidone 25 mg oral tablet 1, tablet, By Mouth, Daily, # 30 tablet, Refills 5, Maintenance, 08/31/22 7:48:00 EDT, Route to Pharmacy Electronically, [facility], 155.4, cm, 07/28/22 11:34:00 EDT, Height Start Date: 08/31/22 Status: Ordered Nasacort Allergy 24HR 55 mcg/inh nasal spray 2 sprays, Nares, Both, Daily, # 16.5 Gm, 5 Refills, Maintenance, 12/28/19 10:55:00 EST, [facility] # [facility], 2 sprays Nares, Both Daily, 155.4, cm, 12/28/19 10:37:00 EST, Height Start Date: 2/21/20 Status: Ordered Sitz bath Sitz bath, See [...] Confirmed 08/28/15 Active Primary hyperparathyroidism Confirmed Active Social History Social History Type Response Smoking Status Former smoker, quit more than 30 days ago entered on: 06/21/19 Sex Patient Care team information Care Team Personnel Name: Ash MURPHY, Dory Mckeon Position: S PCO Associate Professional Member Role: PCP Address: Address: [address] [place] [address]- Care Team Related Persons Name: LIBORIO BENNETT
--- OUTSIDE RECORDS SUMMARY | 2023-07-25 08:04 | XMS_ITS | Continuity of Care Document ---
Author Name Unknown Organization [facility] Troy Ball Martinez lt Address [address] [place] [address]- Care Team Providers Care Forge Shop Machine Repairer Name Role Phone Ash MURPHY, Dory Mckeon Primary Care Physician Encounter [facility] Date(s): 01/11/23 - 01/18/23 DIONISIO Ball Adult [address] [place] [address]- Encounter Diagnosis Hyperlipidemia(Discharge Diagnosis) - 01/11/23 Hypertension(Discharge Diagnosis) - 01/11/23 COPD without exacerbation(Discharge Diagnosis) - 01/11/23 Chronic low back pain(Discharge Diagnosis) - 01/11/23 Attending Physician: Dory Aleman NP Referring Physician: Roger Perales MD Allergies, Adverse Reactions, [...] 2Result Comment: [employer] [facility] Lot [id number] Medications albuterol CFC free 90 mcg/inh inhalation aerosol 2, puffs, Inhalation, Every 4 hours, PRN, # 18 Gm, Refills 5, Tot. Refills 5, Maintenance, 03/04/2210:37:00 EDT, Aerosol, Route to Pharmacy Electronically, [id number], [facility] # [facility], 155.4, cm, 03/04/22 10:34:00 [...] 11 Refills, Maintenance, 03/04/22 10:37:00 EDT, Powder, [facility] # 50, Partial fill upon patient request if the prescription is for a schedule II opioid drug., 1 puffs Inhalation Daily, 155.4, cm, 03/04/22... Start Date: 03/04/22 Status: Ordered atorvastatin 10 mg oral tablet 1 tablet, By Mouth, Daily, # 90 tablet, 1 Refills, Maintenance, 12/16/22 14:42:00 EST, [facility] # 50, 155.4, cm, 12/02/22 14:42:00 EST, Height Start Date: 12/16/22 Status: Ordered [place] Saline Nasal Mist 4 times a day, 0 Refills, Maintenance, 03/30/22 11:55:00 EDT, Partial fill upon patient request if the prescription is for a schedule II opioid drug. Start Date: 03/30/22 Status: Ordered chlorthalidone 25 mg oral tablet 1, tablet, By Mouth, Daily, # 30 tablet, Refills 5, Maintenance, 08/31/22 7:48:00 EDT, Route to Pharmacy Electronically, [facility] # 50, 155.4, cm, 07/28/22 11:34:00 [...] Confirmed 08/28/15 Active Primary hyperparathyroidism Confirmed Active Diagnosis Diagnosis Type Effective Dates Health Status Clinical Service Informant Hyperlipidemia Discharge Diagnosis 01/11/23 Hypertension Discharge Diagnosis 01/11/23 COPD without exacerbation Discharge Diagnosis 01/11/23 Chronic low back pain Discharge Diagnosis 01/11/23 Vital Signs Most recent to oldest [Reference Range]: 1 Height 155.4 cm (01/11/23 11:06 AM) Weight 73.9 kg (01/11/23 11:06 AM) Oxygen Saturation [94-100 %] 96 % (01/11/23 11:06 AM) Pulse Rate [55-90 bpm] 86 bpm (01/11/23 11:06 AM) Body Mass Index [18.5-24.99 kg/m2] 30.6 kg/m2 *>HHI* (01/11/23 11:06 AM) Blood Pressure [90-138/55-84 mm Hg] 160/ 75mm Hg *H* (01/11/23 11:06 AM) Temperature [96.8-100.4 DegF] 98.2 DegF (01/11/23 11:06 AM) Mode of Delivery (Oxygen) Room air (01/11/23 11:06 AM) Blood pressure sites Arm, right (01/11/23 11:06 AM) Temperature Route Temporal (01/11/23 11:06 AM) Weight Obtained Via Standing scale (01/11/23 11:06 AM) Social History Social History Type Response Smoking Status Former smoker, quit more than 30 days ago entered on: 06/21/19 Sex Note * Rafaela Valdes: PERFORM, SIGN, VERIFY Event Display: Patient Education/Instruction Authored Date: [id number] [facility] *[facility] Clinical Summary Name JEANNE ROMAN Age 77 Years 1945 PCP Dory Aleman NP PCP Visit Date 01/11/2023 11:04:00 Additional Instructions: Scheduled Appointments?? Future Appointments ?No Future Appointments Scheduled Follow-Up Instructions ?? With: Address: When: Ash MURPHY, Dory Mckeon [address] [place] [address] 01/11/2023 12:00 AM Comments: 6 months- physical Diagnosis Hyperlipidemia, unspecified; Chronic obstructive pulmonary disease, unspecified; Essential (primary) hypertension; Low back pain, unspecified Medications: Please continue your medications until treatment is completed or stopped by your provider. Discuss any questions related to medications with your provider. Medications to Continue with No Changes These medications were not printed or sent to your pharmacy Albuterol (albuterol CFC free 90 mcg/inh inhalation aerosol) 2 puff(s) Inhalation every 4 hours as needed Shortness of breath. Refills: 5. Next Dose: Atorvastatin (atorvastatin 10 mg oral tablet) 1 tab(s) Oral Daily. Refills: 1. Next Dose: Chlorthalidone (chlorthalidone 25 mg oral tablet) 1 tab(s) Oral Daily. Refills: 5. Next Dose: Durable Medical Equipment (Sitz bath) use 2-3x/day. Refills: 0. Next Dose: Fexofenadine (Christine) Oral. Next Dose: Sodium Chloride Nasal ([place] Saline Nasal Mist) 4 times a day. Next Dose: Triamcinolone Nasal (Nasacort Allergy 24HR 55 mcg/inh nasal spray) 2 spray(s) Nares, Both Daily. Refills: 5. Next Dose: umeclidinium-vilanterol (Anoro Ellipta 62.5 mcg-25 mcg/inh inhalation powder) 1 puff(s) Inhalation Daily. Refills: 11. Next Dose: Allergy Info:?? sulfa drugs; penicillins; losartan; amoxicillin Medications Given This Visit Future Orders ?Comprehensive Metabolic Panel? Order Date:01/11/23?- Complete on or after?01/11/23 ?Ionized Calcium? Order Date:01/11/23?- Complete on or after?01/11/23 ?PTH Intact? Order Date:01/11/23?- Complete on or after?01/11/23 Vital Signs Height 155.4 cm Weight 73.9 kg BMI 30.6 kg/m2 Blood Pressure 160 mm Hg/75 mm Hg Temperature 98.2 DegF Pulse Rate 86 bpm Respiratory Rate 02 Sat Mode of Delivery 96 %/Room air You can now view a summary of your hospital visit from the comfort of your home through a free online portal called [facility]. [facility] is a website that allows you to securely view your medical information including discharge summary, medications and follow-up visits. ??You can alsosend a secure electronic message to your doctor???s office to request appointments, renew medications or just ask a question. You can enroll at [email or web address] or register during your next office visit. Disclaimer:?? The information provided is of a general nature and is intended to be used in conjunction with the recommendations and advice of your health care practitioner. ??Every effort has been made to ensure that the information provided is accurate and complete at the time it is provided to you however, as your needs change, or, as new ??information becomes available, different or additional instructions may be required. If you have questions, please consult with your primary care provider or pharmacist, as appropriate. ??This information is not intended to serve as substitution for assessment and evaluation by a qualified health care provider. If you do not have a primary care provider, you may find a [facility] provider by calling [facility] at [phone]. For information about the plan of care including goals and instructions for your diagnosis, please see the patient education orders section of this document. Patient Education Materials?? The content of this educational material or handout may have been modified, supplemented, or adapted from its original content and format to support your individualized medical care. Patient Care team information Care Team Personnel Name: Dory Aleman NP Position: [facility] Associate Professional Member Role: PCP Address: Address: [address] [place] [address]- Care Team Related Persons Name: LIBORIO BENNETT
--- OUTSIDE RECORDS SUMMARY | 2023-07-25 08:04 | XMS_ITS | Continuity of Care Document ---
Author Name Unknown Organization [facility] Address [address] [place] [address]- Care Team Providers Care Verification Rep Name Role Phone Ash MURPHY, Dory Mckeon Primary Care Physician [phone] Encounter [facility] Date(s): 03/30/22 - 04/29/22 [facility] [address] [place] [address]- Attending Physician: Oleg Ontiveros Admitting Physician: AdmOleg worrell Referring Physician: trOleg Allergies, Adverse Reactions, Alerts Substance Reaction Severity [...] Not Giv en Patient Refuses 1Result Comment: [employer] [facility] #50 Lot [id number] Medications albuterol CFC free 90 mcg/inh inhalation aerosol 2, puffs, Inhalation, Every 4 hours, PRN, # 18 Gm, Refills 5, Tot. Refills 5, Maintenance, 03/04/2210:37:00 EDT, Aerosol, Route to Pharmacy Electronically, [id number], [facility] # [facility], 155.4, cm, 03/04/22 10:34:00 [...] 11 Refills, Maintenance, 03/04/22 10:37:00 EDT, Powder, [facility] # 50, Partial fill upon patient request if the prescription is for a schedule II opioid drug., 1 puffs Inhalation Daily, 155.4, cm, 03/04/22... Start Date: 03/04/22 Status: Ordered atorvastatin 10 mg oral tablet See Instructions, TAKE ONE TABLET BY MOUTH EVERY DAY, # 90 tablet, 1 Refills, Maintenance, 12/16/2213:28:00 EST, [facility], 155.4, cm, 10/22/21 11:57:00 EST, Height Start Date: 12/16/21 Status: Ordered [place] Saline Nasal Mist 4 times a day, [...]
--- OUTSIDE RECORDS SUMMARY | 2023-07-25 08:04 | XMS_ITS | Continuity of Care Document ---
Author Name Unknown Organization [facility] Address [address] [address]- Care Team Providers Care Director Of Business Applications Name Role Phone Ash MURPHY, Dory Mckeon Primary Care Physician Encounter [facility] Date(s): 06/17/23 - 07/17/23 [facility] [address] [place] [address] [place] [address] Allergies, Adverse Reactions, Alerts Substance Reaction Severity [...] vaccine 11/07/11 Recorded diphtheria/tetanus/pertussis, acel(DTaP) 11/07/10 Recorded 1Result Comment: [employer] #[facility] 2Result Comment: [employer] [facility] #50 Lot [id number] Medications albuterol CFC free 90 mcg/inh inhalation aerosol 2, puffs, Inhalation, Every 4 hours, PRN, # 18 Gm, Refills 5, Tot. Refills 5, Maintenance, 03/04/2210:37:00 EDT, Aerosol, Route to Pharmacy Electronically, [id number], [facility] # [facility], 155.4, cm, 03/04/22 10:34:00 EDT, H... Start Date: 03/04/22 Status: Ordered Christine By Mouth, 0 Refills, Maintenance, 03/30/22 11:54:00 EDT, Partial fill upon patient request if the prescription is for a schedule II opioid drug. Start Date: 03/30/22 Status: Ordered Anoro Ellipta 62.5 mcg-25 mcg/inh inhalation powder 1 puffs, Inhalation, Daily, j44.9, # 1 each, 6 Refills, Maintenance, 06/02/23 17:03:00 EDT, Powder,[facility] # [facility], Partial fill upon patient request if the prescription is for a schedule II opioid drug., 1 puffs Inhalation Daily,Instr:j44.9, 155... Start Date: 06/02/23 Status: Ordered atorvastatin 10 mg oral tablet 1 tablet, By Mouth, Daily, # 90 tablet, 1 Refills, Maintenance, 06/14/23 15:31:00 EDT, [facility] # 50, 155.4, cm, 06/02/23 10:49:00 EDT, Height Start Date: 06/14/23 Status: Ordered [place] Saline Nasal Mist 4 times a day, 0 Refills, Maintenance, 03/30/22 11:55:00 EDT, Partial fill upon patient request if the prescription is for a schedule II opioid drug. Start Date: 03/30/22 Status: Ordered chlorthalidone 25 mg oral tablet 1, tablet, By Mouth, Daily, # 30 tablet, Refills 5, Tot. Refills 5, Maintenance, 02/28/23 14:20:00 EDT, Route to Pharmacy Electronically, [facility] # [facility], 155.4, cm, 01/11/23 11:06:00 EST, Height Start Date: 02/28/23 Status: Ordered Nasacort Allergy 24HR 55 mcg/inh nasal spray 2 sprays, Nares, Both, Daily, # 16.5 Gm, 5 Refills, Maintenance, 12/28/19 10:55:00 EST, [facility], 2 sprays Nares, [...] Personnel Name: Ash MURPHY, Dory Mckeon Position: [facility] PC[facility] Associate Professional Member Role: PCP Address: Address: [address] [place] [address]- Care Team Related Persons Name: LIBORIO BENNETT
--- OUTSIDE RECORDS SUMMARY | 2023-07-25 08:04 | XMS_ITS | Continuity of Care Document ---
Author Name Unknown Organization [facility] Rex Martinez lt Address [address] [place] [address]- Care Team Providers Care Pile Driving Supervisor Name Role Phone Gato ANDERSON, Erich Barrera Primary Care Physician [phone] Encounter [facility] Date(s): 12/21/19 - 12/28/19 [facility] Rex Adult [address] [place] [address]- [facility] Encounter Diagnosis Allergic rhinitis(Discharge Diagnosis) - 12/21/19 Hypertension(Discharge Diagnosis) - 12/22/19 Attending Physician: Mary Linn NP Allergies, Adverse Reactions, Alerts Substance Reaction Severity Status penicillins 1 Active sulfa drugs Rash Active 1rash Immunizations Given and Recorded Vaccine Date Status Refusal Reason pneumococcal 23-valent vaccine 11/07/11 Recorded diphtheria/tetanus/pertussis, acel(DTaP) 11/07/10 Recorded Not Given Vaccine Date Status Refusal Reason Influenza Virus Vaccine (oldterm) 12/28/19 Not Giv en Patient Refuses Medications Claritin 5 mg oral tablet, chewable 1 tablet = 5 mg, Daily, 0 Refills, Maintenance, 09/27/19 11:32:24 EST Start Date: 09/27/19 Status: Ordered hydrochlorothiazide 12.5 mg oral tablet 1 tablet = 12.5 mg, By Mouth, Daily, # 90 tablet, 3 Refills, Maintenance, 12/12/19 17:00:00 EST, Tablet, [facility], 155.4, cm, 11/27/19 16:28:00 EST, Height Start Date: 12/12/19 Status: Ordered hydrochlorothiazide-losartan 12.5 mg-50 mg oral tablet 1 tablet, By Mouth, Daily, # 30 tablet, 11 Refills, Maintenance, 12/11/19 16:44:00 EST, Tablet, [facility] # [facility], 1 tablet By Mouth Daily, 155.4, cm, 11/27/19 16:28:00 EST, Height Start Date: 12/11/19 Status: Ordered losartan 50 mg oral tablet 50 mg, 1, tablet, By Mouth, Daily, # 90 tablet, Refills 3, Tot. Refills 3, Maintenance, 12/12/19 17:00:00 EST, Route to Pharmacy Electronically, [facility], 155.4, cm, 11/27/19 16:28:00 EST,Height Start Date: 12/12/19 Status: Ordered Nasacort Allergy 24HR 55 mcg/inh nasal spray 2 sprays, Nares, Both, Daily, # 16.5 Gm, 5 Refills, Maintenance, 12/28/19 10:55:00 EST, [facility], 2 sprays Nares, Both Daily, 155.4, cm, 12/28/19 10:37:00 EST, Height Start Date: 12/28/19 Status: Ordered Problem List Condition Effective Dates Status Health Status Inform ant Allergic rhinitis(Confirmed) Active Cigarette smoker(Confirmed) Active Hypertension(Confirmed) Active Osteoporosis(Confirmed) 08/28/15 Active Diagnosis Diagnosis Type Effective Dates Health Status Clinical Service Informant Allergic rhinitis Discharge Diagnosis 12/21/19 Hypertension Discharge Diagnosis 12/22/19 Vital Signs Most recent to oldest [Reference Range]: 1 Height 155.4 cm (12/21/19 9:55 AM) Weight 64.9 kg (12/21/19 9:55 AM) Oxygen Saturation [94-100 %] 97 % (12/21/19 9:55 AM) Pulse Rate [55-90 bpm] 98 bpm *H* (12/21/19 9:55 AM) Body Mass Index [18.5-24.99] 26.87 *H* (12/21/19 9:55 AM) Blood Pressure [90-138/55-84 mm Hg] 142/ 70mm Hg *H* (12/21/19 9:55 AM) Respiratory Rate [16-30 br/min] 15 br/mi n *L* (12/21/19 9:55 AM) Temperature [96.8-100.4 DegF] 97.8 DegF (12/21/19 9:55 AM) Mode of Delivery (Oxygen) Room air (12/21/19 9:55 AM) Blood pressure sites Arm, left (12/21/19 9:55 AM) Temperature Route Oral (12/21/19 9:55 AM) Weight Obtained Via Standing scale (12/21/19 9:55 AM) Social History Social History Type Response Smoking Status Former smoker, quit more than 30 days ago entered on: 06/21/19 Sex
--- OUTSIDE RECORDS SUMMARY | 2023-07-25 08:04 | XMS_ITS | Continuity of Care Document ---
Author Name Unknown Organization [facility] Address [address] [address]- Care Team Providers Care Coat Repair Inspector Name Role Phone Gato ANDERSON, Erich Barrera Primary Care Physician [place] [facility] [place]13[place] 04/20/21 [facility] [address] [address]- Attending Physician: Zoe Gracia NP Admitting Physician: Zoe Gracia NP Referring Physician: Zoe Gracia NP Allergies, Adverse Reactions, Alerts Substance Reaction [...] 12/28/19 Not Giv en Patient Refuses Medications amLODIPine 5 mg oral tablet 5 mg, 1, tablet, By Mouth, Daily at bedtime, # 30 tablet, Refills 1, Tot. Refills 1, Maintenance, 03/13/21 9:45:00 EDT, Route to Pharmacy Electronically, [facility] # [facility], Partial fill upon patient request if the prescription is for a schedule II o... Start Date: 03/13/21 Status: Ordered aspirin 81 mg oral delayed release tablet 81 mg, 1, tablet, By Mouth, Daily, # 90 tablet, Refills 3, Tot. Refills 3, Maintenance, 06/26/20 10:45:00 EDT, Route to Pharmacy Electronically, [facility] # [facility], 155.4, cm, 12/28/19 10:37:00 EST,Height Start Date: 06/26/20 Status: Ordered atorvastatin 10 mg oral tablet 1 tablet = 10 mg, By Mouth, Daily, # 90 tablet, 3 Refills, Maintenance, 06/26/20 10:45:00 EDT, [facility] # [facility], 155.4, cm, 12/28/19 10:37:00 EST, Height Start Date: 06/26/20 Status: Ordered hydrochlorothiazide 25 mg oral tablet 25 mg, 1, tablet, By Mouth, Daily, # 90 tablet, Refills 3, Tot. Refills 3, Maintenance, 06/26/20 10:46:00 EDT, Route to Pharmacy Electronically, [facility] # [facility], 155.4, cm, 12/28/19 10:37:00 EST,Height Start Date: 06/26/20 Status: Ordered losartan 100 mg oral tablet 1 tablet = 100 mg, By Mouth, Daily, # 90 tablet, 3 Refills, Maintenance, 07/08/20 16:41:00 EDT, Tablet, [facility] # [facility], 155.4, cm, 07/08/20 16:29:00 EDT, Height Start Date: 07/08/20 Status: Ordered Nasacort Allergy 24HR 55 mcg/inh nasal spray 2 sprays, Nares, Both, Daily, # 16.5 Gm, 5 Refills, Maintenance, 12/28/19 10:55:00 EST, [facility] # [facility], 2 sprays Nares, [...] rhinitis(Confirmed) Active Hypertension(Confirmed) Active Osteoporosis(Confirmed) 08/28/15 Active Social History Social History Type Response Smoking Status Former smoker, quit more than 30 days ago entered on: 06/21/19 Sex
--- OUTSIDE RECORDS SUMMARY | 2023-07-25 08:04 | XMS_ITS | Continuity of Care Document ---
Author Name Unknown Organization [facility] Thaxton Martinez lt Address [address] [place] [address]- Care Team Providers Care Biostatistician Name Role Phone Erich Hoskins MD Primary Care Physician En[place] [facility] Date(s): 04/13/21 - 05/13/21 [facility] Rex Adult [address] [place] [address]- Allergies, Adverse Reactions, Alerts Substance Reaction Severity [...] 05/04/21 11:13:00 EDT, Route to Pharmacy Electronically, [facility] # [facility], Partial fill upon patient request if the prescription is for a schedule II... Start Date: 05/04/21 Status: Ordered aspirin 81 mg oral delayed release tablet 81 mg, 1, tablet, By Mouth, Daily, # 90 tablet, Refills 3, Tot. Refills 3, Maintenance, 06/26/20 10:45:00 EDT, Route to Pharmacy Electronically, [facility] # [facility], 155.4, cm, 12/28/19 10:37:00 EST,Height Start Date: 06/26/20 Status: Ordered atorvastatin 10 mg oral tablet 1 tablet = 10 mg, By Mouth, Daily, # 90 tablet, 3 Refills, Maintenance, 06/26/20 10:45:00 EDT, [facility] # [facility], 155.4, cm, 12/28/19 10:37:00 EST, Height Start Date: 06/26/20 Status: Ordered hydrochlorothiazide 25 mg oral tablet 25 mg, 1, tablet, By Mouth, Daily, # 90 tablet, Refills 3, Tot. Refills 3, Maintenance, 06/26/20 10:46:00 EDT, Route to Pharmacy Electronically, [facility] # [facility], 155.4, cm, 12/28/19 10:37:00 EST,Height Start Date: 06/26/20 Status: Ordered losartan 100 mg oral tablet 1 tablet = 100 mg, By Mouth, Daily, # 90 tablet, 3 Refills, Maintenance, 07/08/20 16:41:00 EDT, Tablet, [facility] # [facility], 155.4, cm, 07/08/20 [...]
--- OUTSIDE RECORDS SUMMARY | 2023-07-25 08:04 | XMS_ITS | Continuity of Care Document ---
Author Name Unknown Organization [facility] Rex Martinez lt Address [address] [place] [address]- Care Team Providers Care Director Loss Prevention Name Role Phone Erich Hoskins MD Primary Care Physician Encounter [facility] Date(s): 04/16/21 - 05/16/21 [facility] Troy Bondsley Adult [address] [place] [address]- Attending Physician: Admtr, Ar8 Admitting Physician: Admtr, [...] 05/04/21 11:13:00 EDT, Route to Pharmacy Electronically, [facility] # [facility], Partial fill upon patient request if the prescription is for a schedule II... Start Date: 05/04/21 Status: Ordered aspirin 81 mg oral delayed release tablet 81 mg, 1, tablet, By Mouth, Daily, # 90 tablet, Refills 3, Tot. Refills 3, Maintenance, 06/26/20 10:45:00 EDT, Route to Pharmacy Electronically, [facility] # [facility], 155.4, cm, 12/28/19 10:37:00 EST,Height Start Date: 06/26/20 Status: Ordered atorvastatin 10 mg oral tablet 1 tablet = 10 mg, By Mouth, Daily, # 90 tablet, 3 Refills, Maintenance, 06/26/20 10:45:00 EDT, [facility] # [facility], 155.4, cm, 12/28/19 10:37:00 EST, Height Start Date: 06/26/20 Status: Ordered hydrochlorothiazide 25 mg oral tablet 25 mg, 1, tablet, By Mouth, Daily, # 90 tablet, Refills 3, Tot. Refills 3, Maintenance, 06/26/20 10:46:00 EDT, Route to Pharmacy Electronically, [facility] # [facility], 155.4, cm, 12/28/19 10:37:00 EST,Height Start Date: 06/26/20 Status: Ordered losartan 100 mg oral tablet 1 tablet = 100 mg, By Mouth, Daily, # 90 tablet, 3 Refills, Maintenance, 07/08/20 16:41:00 EDT, Tablet, [facility] # [facility], 155.4, cm, 07/08/20 16:29:00 EDT, Height Start Date: 07/08/20 Status: Ordered Nasacort Allergy 24HR 55 mcg/inh nasal spray 2 sprays, Nares, Both, Daily, # 16.5 Gm, 5 Refills, Maintenance, 12/28/19 10:55:00 EST, [facility] # [facility], 2 sprays Nares, [...] rhinitis(Confirmed) Active Hypertension(Confirmed) Active Osteoporosis(Confirmed) 08/28/15 Active Procedures Procedure Date Related Diagnosis Body Site Status Bone density scan 1 10/05/19 Compl eted Bone density scan 2, 3 08/28/15 Co m[facility] 3High FRAX score Social History Social History Type Response Smoking Status Former smoker, quit more than 30 days ago entered on: 06/21/19 Sex
--- OUTSIDE RECORDS SUMMARY | 2023-07-25 08:04 | XMS_ITS | Continuity of Care Document ---
Author Name Unknown Organization [facility] ter Address [address] [place] [address]- Care Team Providers Care Licensing Analyst Name Role Phone Gato ANDERSON, Erich Barrera Primary Care Physician Encounter [facility] Date(s): 12/21/19 - 12/21/[address] [address]- [facility] Attending Physician: Mary Linn NP Allergies, Adverse Reactions, Alerts Substance Reaction Severity Status penicillins 1 Active sulfa drugs Rash Active 1rash Immunizations Given and Recorded Vaccine Date Status Refusal Reason pneumococcal 23-valent vaccine 11/07/11 Recorded diphtheria/tetanus/pertussis, acel(DTaP) 11/07/10 Recorded Medications Claritin 5 mg oral tablet, chewable 1 tablet = 5 mg, Daily, 0 Refills, Maintenance, 09/27/19 11:32:24 EST Start Date: 09/27/19 Status: Ordered hydrochlorothiazide 12.5 mg oral tablet 1 tablet = 12.5 mg, By Mouth, Daily, # 90 tablet, 3 Refills, Maintenance, 12/12/19 17:00:00 EST, Tablet, [facility], 155.4, cm, 11/27/19 16:28:00 EST, Height Start Date: 12/12/19 Status: Ordered hydrochlorothiazide-losartan 12.5 mg-50 mg oral tablet 1 tablet, By Mouth, Daily, # 30 tablet, 11 Refills, Maintenance, 12/11/19 16:44:00 EST, Tablet, [facility] # [facility], 1 tablet By Mouth Daily, 155.4, cm, 11/27/19 16:28:00 EST, Height Start Date: 12/11/19 Status: Ordered losartan 50 mg oral tablet 50 mg, 1, tablet, By Mouth, Daily, # 90 tablet, Refills 3, Tot. Refills 3, Maintenance, 12/12/19 17:00:00 EST, Route to Pharmacy Electronically, [facility], 155.4, cm, 11/27/19 16:28:00 EST,Height Start Date: 12/12/19 Status: Ordered Medrol Dosepak 4 mg oral tablet 1 pack/packet, By Mouth, Once, # 21 tablet, 0 Refills, Soft Stop, 12/21/19 10:14:00 EST, Tablet, [facility], 155.4, cm, 12/21/19 9:55:00 EST, Height Start Date: 12/21/19 Status: Ordered Problem List Condition Effective Dates Status Health Status Inform ant Allergic rhinitis(Confirmed) Active Cigarette smoker(Confirmed) Active Hypertension(Confirmed) Active Osteoporosis(Confirmed) 08/28/15 Active Social History Social History Type Response Smoking Status Former smoker, quit more than 30 days ago entered on: 06/21/19 Sex
--- OUTSIDE RECORDS SUMMARY | 2023-07-25 08:04 | XMS_ITS | Continuity of Care Document ---
Author Name Unknown Organization [facility] Troy Ball Martinez lt Address [address] [place] [address]- Care Team Providers Care Data Security Administrator Name Role Phone Ash MURPHY, Dory Mckeon Primary Care Physician Encounter [facility] [place] ACCT R [id number] Date(s): 05/03/22 - 06/02/22 [facility] Troy Bondsley Adult [address] [place] [address]- Attending Physician: Admtr, Ar8 Admitting Physician: Admtr, Ar8 Referring Physician: Admtr, Ar8 Allergies, Adverse Reactions, Alerts Substance Reaction Severity Status amoxicillin Active losartan shortness of breath Active sulfa drugs Rash Active penicillins 1 Active 1rash Immunizations Given and Recorded Vaccine [...] 2Result Comment: [facility] Lot [id number] Medications albuterol CFC free 90 mcg/inh inhalation aerosol 2, puffs, Inhalation, Every 4 hours, PRN, # 18 Gm, Refills 5, Tot. Refills 5, Maintenance, 03/04/2210:37:00 EDT, Aerosol, Route to Pharmacy Electronically, [id number], [facility], 155.4, cm, 03/04/22 [...] 11 Refills, Maintenance, 03/04/22 10:37:00 EDT, Powder, [facility] # [facility], Partial fill upon patient request if the prescription is for a schedule II opioid drug., 1 puffs Inhalation Daily, 155.4, cm, 03/04/22... Start Date: 03/04/22 Status: Ordered atorvastatin 10 mg oral tablet See Instructions, TAKE ONE TABLET BY MOUTH EVERY DAY, # 90 tablet, 1 Refills, Maintenance, 12/16/2213:28:00 EST, [facility], 155.4, cm, 10/22/21 11:57:00 EST, Height Start Date: 12/16/21 Status: Ordered [place] Saline Nasal Mist 4 times a day, [...] Gm, 5 Refills, Maintenance, 12/28/19 10:55:00 EST, [facility], 2 sprays Nares, [...] Obese class I(Confirmed) Active Osteoporosis(Confirmed) 08/28/15 Active Procedures Procedure Date Related Diagnosis Body Site Status Bone density scan 1 10/05/19 Compl eted Bone density scan 2, 3 08/28/15 Co mpleted [address] [place] [address] [facility] Social History Social History Type Response Smoking Status Former smoker, quit more than 30 days ago entered on: 06/21/19 Sex
--- OUTSIDE RECORDS SUMMARY | 2023-07-25 08:04 | XMS_ITS | Continuity of Care Document ---
Author Name Unknown Organization [facility] Address [address] [place] [address]- Care Team Providers Care Sustainability Purchasing Agent Name Role Phone Ash MURPHY, Dory Mckeon Primary Care Physician [phone] Encounter [facility] ACCT [facility] [id number] Date(s): 11/12/22 - 12/12/[address] [address] Attending Physician: Admtr, Ar8 Admitting Physician: Admtr, [...] 2Result Comment: [facility] Lot [id number] Medications albuterol CFC free 90 mcg/inh inhalation aerosol 2, puffs, Inhalation, Every 4 hours, PRN, # 18 Gm, Refills 5, Tot. Refills 5, Maintenance, 03/04/2210:37:00 EDT, Aerosol, Route to Pharmacy Electronically, [id number], [facility], 155.4, cm, [...] 11 Refills, Maintenance, 03/04/22 10:37:00 EDT, Powder, [facility] # [facility], Partial fill upon patient request if the prescription is for a schedule II opioid drug., 1 puffs Inhalation Daily, 155.4, cm, 03/04/22... Start Date: 03/04/22 Status: Ordered atorvastatin 10 mg oral tablet See Instructions, TAKE ONE TABLET BY MOUTH EVERY DAY, # 90 Unknown, 1 Refills, Maintenance, 06/23/22 16:31:00 EDT, [facility] # [facility], 155.4, cm, 06/03/22 12:42:00 EDT, Height Start Date: 06/23/22 Status: Ordered [place] Saline Nasal Mist 4 times a day, 0 Refills, Maintenance, 03/30/22 11:55:00 EDT, Partial fill upon patient request if the prescription is for a schedule II opioid drug. Start Date: 03/30/22 Status: Ordered chlorthalidone 25 mg oral tablet 1, tablet, By Mouth, Daily, # 30 tablet, Refills 5, Maintenance, 08/31/22 7:48:00 EDT, Route to Pharmacy Electronically, [facility], 155.4, cm, 07/28/22 11:34:00 EDT, Height Start Date: 08/31/22 Status: Ordered Nasacort Allergy 24HR 55 mcg/inh nasal spray 2 sprays, Nares, Both, Daily, # 16.5 Gm, 5 Refills, Maintenance, 12/28/19 10:55:00 EST, [facility] # [facility], 2 sprays [...] Personnel Name: Ash MURPHY, Dory Mckeon Position: [facility] PCO Associate Professional Member Role: PCP Address: Address: [address] [place] [address]- Care Team Related Persons Name: LIBORIO BENNETT
--- OUTSIDE RECORDS SUMMARY | 2023-07-25 08:04 | XMS_ITS | Continuity of Care Document ---
Author Name Unknown Organization [facility] Troy Goodman Martinez lt Address [address] [place] [address]- Care Team Providers Care Court Stenographer Name Role Phone Erich Hoskins MD Primary Care Physician Encounter [facility] [place] Date(s): 03/13/21 - 03/20/21 [facility] Troy Goodman Adult [address] [place] [address]- Encounter Diagnosis Polycythemia(Discharge Diagnosis) - 03/13/21 Lightheadedness(Discharge Diagnosis) - 03/13/21 Attending Physician: Erich Hoskins MD Allergies, Adverse Reactions, [...] 03/13/21 9:45:00 EDT, Route to Pharmacy Electronically, [facility], Partial fill upon patient request if the prescription is for a schedule II o... Start Date: 03/13/21 Status: Ordered aspirin 81 mg oral delayed release tablet 81 mg, 1, tablet, By Mouth, Daily, # 90 tablet, Refills 3, Tot. Refills 3, Maintenance, 06/26/20 10:45:00 EDT, Route to Pharmacy Electronically, [facility], 155.4, cm, 12/28/19 10:37:00 EST,Height Start Date: 06/26/20 Status: Ordered atorvastatin 10 mg oral tablet 1 tablet = 10 mg, By Mouth, Daily, # 90 tablet, 3 Refills, Maintenance, 06/26/20 10:45:00 EDT, [facility] # [facility], 155.4, cm, 12/28/19 10:37:00 EST, Height Start Date: 06/26/20 Status: Ordered hydrochlorothiazide 25 mg oral tablet 25 mg, 1, tablet, By Mouth, Daily, # 90 tablet, Refills 3, Tot. Refills 3, Maintenance, 06/26/20 10:46:00 EDT, Route to Pharmacy Electronically, [facility], 155.4, cm, 12/28/19 10:37:00 EST,Height Start Date: 06/26/20 Status: Ordered losartan 100 mg oral tablet 1 tablet = 100 mg, By Mouth, Daily, # 90 tablet, 3 Refills, Maintenance, 07/08/20 16:41:00 EDT, Tablet, [facility] # [facility], [...] Dates Health Status Cl inical Service Informant Lightheadedness Discharge Diagnosis 03/13/21 Polycythemia Discharge Diagnosis 03/13/21 Vital Signs Most recent to oldest [Reference Range]: 1 2 Height 155.4 cm (03/13/21 9:15 AM) 155.4 cm (03/13/21 8:57 AM) Weight 75.4 kg (03/13/21 8:57 AM) Oxygen Saturation [94-100 %] 96 % (03/13/21 8:57 AM) Pulse Rate [55-90 bpm] 94 bpm *H* (03/13/21 8:57 AM) Body Mass Index [18.5-24.99] 31.22 *>HHI* (03/13/21 8:57 AM) Blood Pressure [90-138/55-84 mm Hg] 146/ 64mm Hg *H* (03/13/21 9:15 AM) 144/72mm Hg *H* (03/13/21 8:57 AM) Temperature [96.8-100.4 DegF] 98.1 DegF (03/13/21 8:57 AM) Blood pressure sites Arm, right (03/13/21 9:15 AM) Arm, right (03/13/21 8:57 AM) Social History Social History Type Response Smoking Status Former smoker, quit more than 30 days ago entered on: 06/21/19 Sex
--- OUTSIDE RECORDS SUMMARY | 2023-07-25 08:04 | XMS_ITS | Continuity of Care Document ---
Author Name Unknown Organization [facility] Troy Goodman Martinez lt Address [address] [place] [address]- Care Team Providers Care Doughmaker Name Role Phone Ash MURPHY, Dory Mckeon Primary Care Physician Encounter [facility] Date(s): 10/04/22 - 11/03/22 DION[facility]IO Goodman Adult [address] [place] [address]- Allergies, Adverse Reactions, Alerts Substance Reaction Severity [...] 2Result Comment: [facility] Lot [id number] Medications albuterol CFC free 90 mcg/inh inhalation aerosol 2, puffs, Inhalation, Every 4 hours, PRN, # 18 Gm, Refills 5, Tot. Refills 5, Maintenance, 03/04/2210:37:00 EDT, Aerosol, Route to Pharmacy Electronically, [id number], [facility], 155.4, cm, 03/04/22 [...] Maintenance, 03/04/22 10:37:00 EDT, Powder, [facility], Partial fill upon patient request if the prescription is for a schedule II opioid drug., 1 puffs Inhalation Daily, 155.4, cm, 03/04/22... Start Date: 03/04/22 Status: Ordered atorvastatin 10 mg oral tablet See Instructions, TAKE ONE TABLET BY MOUTH EVERY DAY, # 90 Unknown, 1 Refills, Maintenance, 06/23/22 16:31:00 EDT, [facility], 155.4, cm, 06/03/22 12:42:00 EDT, Height Start Date: 06/23/22 Status: Ordered [place] Saline Nasal Mist 4 times a day, 0 Refills, Maintenance, 03/30/22 11:55:00 EDT, Partial fill upon patient request if the prescription is for a schedule II opioid drug. Start Date: 03/30/22 Status: Ordered chlorthalidone 25 mg oral tablet 1, tablet, By Mouth, Daily, # 30 tablet, Refills 5, Maintenance, 08/31/22 7:48:00 EDT, Route to Pharmacy Electronically, [facility], 155.4, cm, 07/28/22 11:34:00 EDT, Height Start Date: 08/31/22 Status: Ordered Nasacort Allergy 24HR 55 mcg/inh nasal spray 2 sprays, Nares, Both, Daily, # 16.5 Gm, 5 Refills, Maintenance, 12/28/19 10:55:00 EST, [facility] # [facility], 2 sprays Nares, [...] Personnel Name: Ash MURPHY, Dory Mckeon Position: [facility] PCO Associate Professional Member Role: PCP Address: Address: [address] [place] [address]- Care Team Related Persons Name: LIBORIO BENNETT
--- OUTSIDE RECORDS SUMMARY | 2023-07-25 08:04 | XMS_ITS | Continuity of Care Document ---
Author Name Unknown Organization [facility] Troy Ball Martinez lt Address [address] [place] [address]- Care Team Providers Care Eyelet Maker Name Role Phone Ash MURPHY, Dory Mckeon Primary Care Physician [place] [facility] Date(s): 02/22/22 - 03/24/22 [facility] Troy Ball Adult [address] [place] [address]- Allergies, Adverse Reactions, Alerts Substance Reaction Severity [...] Not Giv en Patient Refuses 1Result Comment: [facility] Lot [id number] Medications albuterol CFC free 90 mcg/inh inhalation aerosol 2, puffs, Inhalation, Every 4 hours, PRN, # 18 Gm, Refills 5, Tot. Refills 5, Maintenance, 03/04/2210:37:00 EDT, Aerosol, Route to Pharmacy Electronically, [id number], [facility], 155.4, cm, 03/04/22 10:34:00 EDT, H... Start Date: 03/04/22 Status: Ordered Anoro Ellipta 62.5 mcg-25 mcg/inh inhalation powder 1 puffs, Inhalation, Daily, # 60 each, 11 Refills, Maintenance, 03/04/22 10:37:00 EDT, Powder, [facility] # [facility], Partial fill upon patient request if the prescription is for a schedule II opioid drug., 1 puffs Inhalation Daily, 155.4, cm, 03/04/22... Start Date: 03/04/22 Status: Ordered atorvastatin 10 mg oral tablet See Instructions, TAKE ONE TABLET BY MOUTH EVERY DAY, # 90 tablet, 1 Refills, Maintenance, 12/16/2213:28:00 EST, [facility], 155.4, cm, 10/22/21 11:57:00 EST, Height Start Date: 12/16/21 Status: Ordered chlorthalidone 25 mg oral tablet 25 mg, 1, tablet, By Mouth, Daily, # 30 tablet, Refills 5, Tot. Refills 5, Maintenance, 03/02/22 13:53:00 EDT, Route to Pharmacy Electronically, [facility], Partial fill upon patient requestif the prescription is for a schedule II opioid chito... Start Date: 03/02/22 Status: Ordered Nasacort Allergy 24HR 55 mcg/inh nasal spray 2 sprays, Nares, Both, Daily, # 16.5 Gm, 5 Refills, Maintenance, 12/28/19 10:55:00 EST, [facility] # [facility], 2 sprays Nares, [...]
--- OUTSIDE RECORDS SUMMARY | 2023-07-25 08:04 | XMS_ITS | Continuity of Care Document ---
Author Name Unknown Organization [facility] Martinez lt Address [address] [place] [address]- Care Team Providers Care Clinical Project Manager Name Role Phone Ash MURPHY, Dory Mckeon Primary Care Physician [phone] [place] [facility] [place] 03/02[place]22 - 04/01/22 [facility] Adult [address] [place] [address]- Allergies, Adverse Reactions, Alerts Substance Reaction Severity [...] Not Giv en Patient Refuses 1Result Comment: [facility] Lot [id number] Medications albuterol CFC free 90 mcg/inh inhalation aerosol 2, puffs, Inhalation, Every 4 hours, PRN, # 18 Gm, Refills 5, Tot. Refills 5, Maintenance, 03/04/2210:37:00 EDT, Aerosol, Route to Pharmacy Electronically, [id number], [facility], 155.4, cm, 03/04/22 10:34:00 [...] 11 Refills, Maintenance, 03/04/22 10:37:00 EDT, Powder, [facility], Partial fill upon patient request if the prescription is for a schedule II opioid drug., 1 puffs Inhalation Daily, 155.4, cm, 03/04/22... Start Date: 03/04/22 Status: Ordered atorvastatin 10 mg oral tablet See Instructions, TAKE ONE TABLET BY MOUTH EVERY DAY, # 90 tablet, 1 Refills, Maintenance, 12/16/2213:28:00 EST, [facility], 155.4, cm, 10/22/21 11:57:00 EST, Height Start Date: 12/16/21 Status: Ordered [place] Saline Nasal Mist 4 times a day, [...]
--- OUTSIDE RECORDS SUMMARY | 2023-07-25 08:04 | XMS_ITS | Continuity of Care Document ---
Author Name Unknown Organization [facility] Rex Martinez lt Address [address] [place] [address]- Care Team Providers Care Casket Trimmer Name Role Phone Erich Hoskins MD Primary Care Physician Encounter [facility] [place] Date(s): 01/21/21 - 02/20/21 [facility] Troy Bondsley Adult [address] [place] [address]- Attending Physician: Admtr, Ar8 Admitting Physician: Admtr, [...] 06/26/20 10:45:00 EDT, Route to Pharmacy Electronically, [facility] 155.4, cm, 12/28/19 10:37:00 EST,Height Start Date: 06/26/20 Status: Ordered atorvastatin 10 mg oral tablet 1 tablet = 10 mg, By Mouth, Daily, # 90 tablet, 3 Refills, Maintenance, 06/26/20 10:45:00 EDT, [facility] # [facility], 155.4, cm, 12/28/19 10:37:00 [...] 06/26/20 10:46:00 EDT, Route to Pharmacy Electronically, [facility] # [facility], 155.4, cm, 12/28/19 10:37:00 EST,Height Start Date: 06/26/20 Status: Ordered losartan 100 mg oral tablet 1 tablet = 100 mg, By Mouth, Daily, # 90 tablet, 3 Refills, Maintenance, 07/08/20 16:41:00 EDT, Tablet, [facility] # [facility], 155.4, cm, 07/08/20 16:29:00 EDT, Height Start Date: 07/08/20 Status: Ordered Nasacort Allergy 24HR 55 mcg/inh nasal spray 2 sprays, Nares, Both, Daily, # 16.5 Gm, 5 Refills, Maintenance, 12/28/19 10:55:00 EST, [facility] # [facility], 2 sprays [...] density scan 2, 3 08/28/15 Co mpleted [address] [place] [address] [facility] FRAX [facility] Social History Social History Type Response Smoking Status Former smoker, quit more than 30 days ago entered on: 06/21/19 Sex
--- OUTSIDE RECORDS SUMMARY | 2023-07-25 08:04 | XMS_ITS | Continuity of Care Document ---
Author Name Unknown Organization [facility] Rex Martinez lt Address [address] [place] [address]- Care Team Providers Care Medical Assistant Float Name Role Phone Erich Hoskins MD Primary Care Physician En[place] [facility] [place](s): 06/29/21 - 07/06/21 [facility] Troy Bondsley Adult [address] [place] [address]- Encounter Diagnosis General medical exam(Discharge Diagnosis) - 06/29/21 Hyperlipidemia(Discharge Diagnosis) - 06/29/21 Hypertension(Discharge Diagnosis) - 06/29/21 Osteoporosis(Discharge Diagnosis) - 06/29/21 Lightheadedness(Discharge Diagnosis) - 06/29/21 Attending Physician: Erich Hoskins MD Allergies, Adverse [...] 12/28/19 Not Giv en Patient Refuses Medications Christine Allergy = 60 mg, By Mouth, [...] 05/04/21 11:13:00 EDT, Route to Pharmacy Electronically, [facility], Partial fill upon patient request if the prescription is for a schedule II... Start Date: 05/04/21 Status: Ordered aspirin 81 mg oral delayed release tablet 81 mg, 1, tablet, By Mouth, Daily, # 90 tablet, Refills 3, Tot. Refills 3, Maintenance, 06/26/20 10:45:00 EDT, Route to Pharmacy Electronically, [facility], 155.4, cm, 12/28/19 10:37:00 EST,Height Start Date: 06/26/20 Status: Ordered atorvastatin 10 mg oral tablet 1 tablet = 10 mg, By Mouth, Daily, # 90 tablet, 1 Refills, Maintenance, 06/24/21 14:03:00 EDT, [facility] # [facility], 155.4, cm, 05/26/21 11:13:00 EDT, Height Start Date: 06/24/21 Status: Ordered hydrochlorothiazide 25 mg oral tablet 25 mg, 1, tablet, By Mouth, Daily, # 90 tablet, Refills 3, Tot. Refills 3, Maintenance, 06/26/20 10:46:00 EDT, Route to Pharmacy Electronically, [facility], 155.4, cm, 12/28/19 10:37:00 EST,Height Start Date: 06/26/20 Status: Ordered losartan 100 mg oral tablet 1 tablet = 100 mg, By Mouth, Daily, # 90 tablet, 3 Refills, Maintenance, 07/08/20 16:41:00 EDT, Tablet, [facility] # [facility], 155.4, cm, 07/08/20 16:29:00 EDT, Height Start Date: 07/08/20 Status: Ordered Nasacort Allergy 24HR 55 mcg/inh nasal spray 2 sprays, Nares, Both, Daily, # 16.5 Gm, 5 Refills, Maintenance, 12/28/19 10:55:00 EST, [facility] # [facility], 2 sprays Nares, Both Daily, 155.4, cm, 12/28/19 10:37:00 EST, Height Start Date: 12/28/19 Status: Ordered Sitz bath Sitz bath, See Instructions, # 1 each, Refills 0, Tot. Refills 0, Maintenance, use 2-3x/day, 01/21/21 10:59:00 EDT, Supply Start Date: 01/21/21 Status: Ordered Problem List Condition Effective Dates Status Health Status Inform ant Allergic rhinitis(Confirmed) Active Shortness of breath(Confirmed) Active Hyperlipidemia(Confirmed) Active Hypertension(Confirmed) Active Lightheadedness(Confirmed) Active Osteoporosis(Confirmed) 08/28/15 Active Diagnosis Diagnosis Type Effective Dates Health Status Clinical Service Informant Hypertension Discharge Diagnosis 06/29/21 Hyperlipidemia Discharge Diagnosis 06/29/21 Osteoporosis Discharge Diagnosis 06/29/21 General medical exam Discharge Diagnosis 06/29/21 Lightheadedness Discharge Diagnosis 06/29/21 Vital Signs Most recent to oldest [Reference Range]: 1 Height 155.4 cm (06/29/21 1:31 PM) Weight 75.1 kg (06/29/21 1:31 PM) Oxygen Saturation [94-100 %] 96 % (06/29/21 1:31 PM) Pulse Rate [55-90 bpm] 85 bpm (06/29/21 1:31 PM) Body Mass Index [18.5-24.99] 31.1 *>HHI* (06/29/21 1:31 PM) Blood Pressure [90-138/55-84 mm Hg] 116/ 64mm Hg (06/29/21 1:31 PM) Temperature [96.8-100.4 DegF] 97.8 DegF (06/29/21 1:31 PM) Temperature Route Oral (06/29/21 1:31 PM) Social History Social History Type Response Smoking Status Former smoker, quit more than 30 days ago entered on: 06/21/19 Sex
--- OUTSIDE RECORDS SUMMARY | 2023-07-25 08:04 | XMS_ITS | Continuity of Care Document ---
Author Name Unknown Organization [facility] Address [address] [place] [address]- Care Team Providers Care Automatic Gluing Machine Operator Name Role Phone Ash MURPHY, Dory Mckeon Primary Care Physician [phone] Encounter [facility] [place] ACCT R [id number] Date(s): 11/10/22 - 01/12/[address] [address]- Encounter Diagnosis Low back pain, unspecified(Final) - Discharge Disposition: A-D/C Home Attending Physician: Dory Aleman NP Admitting Physician: Dory Aleman NP Referring Physician: Ash MURPHY, Dory Mckeon Allergies, Adverse [...] 2Result Comment: [facility] Lot [id number] Medications albuterol CFC free 90 mcg/inh inhalation aerosol 2, puffs, Inhalation, Every 4 hours, PRN, # 18 Gm, Refills 5, Tot. Refills 5, Maintenance, 03/04/2210:37:00 EDT, Aerosol, Route to Pharmacy Electronically, [id number], [facility], 155.4, cm, 03/04/22 10:34:00 [...] 11 Refills, Maintenance, 03/04/22 10:37:00 EDT, Powder, [facility] # [facility], Partial fill upon patient request if the prescription is for a schedule II opioid drug., 1 puffs Inhalation Daily, 155.4, cm, 03/04/22... Start Date: 03/04/22 Status: Ordered atorvastatin 10 mg oral tablet 1 tablet, By Mouth, Daily, # 90 tablet, 1 Refills, Maintenance, 12/16/22 14:42:00 EST, [facility] # [facility], 155.4, cm, 12/02/22 14:42:00 EST, Height Start Date: 12/16/22 Status: Ordered [place] Saline Nasal Mist 4 times a day, 0 Refills, Maintenance, 03/30/22 11:55:00 EDT, Partial fill upon patient request if the prescription is for a schedule II opioid drug. Start Date: 03/30/22 Status: Ordered chlorthalidone 25 mg oral tablet 1, tablet, By Mouth, Daily, # 30 tablet, Refills 5, Maintenance, 08/31/22 7:48:00 EDT, Route to Pharmacy Electronically, [facility] # [facility], 155.4, cm, 07/28/22 11:34:00 [...] Associate Professional Member Role: PCP Address: Address: [address] [place] [address]- Care Team Related Persons Name: LIBORIO BENNETT
--- OUTSIDE RECORDS SUMMARY | 2023-07-25 08:04 | XMS_ITS | Continuity of Care Document ---
Author Name Unknown Organization [facility] Troy Ball Martinez lt Address [address] [place] [address]- Care Team Providers Care Community Nutrition Educator Name Role Phone Erich Hoskins MD Primary Care Physician Encounter [facility] [place] Date(s): 03/20/21 - 03/27/21 DIONISIO Ball Adult [address] [place] [address]- Encounter Diagnosis Dysuria(Discharge Diagnosis) - 03/20/21 Hypertension(Discharge Diagnosis) - 03/20/21 Heart murmur(Discharge Diagnosis) - 03/20/21 Polycythemia(Discharge Diagnosis) - 03/20/21 Attending Physician: Zoe Gracia NP Referring Physician: Erich Hoskins MD Allergies, Adverse [...] 03/13/21 9:45:00 EDT, Route to Pharmacy Electronically, [facility] # [facility], Partial fill upon patient request if the prescription is for a schedule II o... Start Date: 03/13/21 Status: Ordered aspirin 81 mg oral delayed release tablet 81 mg, 1, tablet, By Mouth, Daily, # 90 tablet, Refills 3, Tot. Refills 3, Maintenance, 06/26/20 10:45:00 EDT, Route to Pharmacy Electronically, [facility] # [facility], 155.4, cm, 12/28/19 10:37:00 EST,Height Start Date: 06/26/20 Status: Ordered atorvastatin 10 mg oral tablet 1 tablet = 10 mg, By Mouth, Daily, # 90 tablet, 3 Refills, Maintenance, 06/26/20 10:45:00 EDT, [facility] # [facility], 155.4, cm, 12/28/19 10:37:00 EST, Height Start Date: 06/26/20 Status: Ordered hydrochlorothiazide 25 mg oral tablet 25 mg, 1, tablet, By Mouth, Daily, # 90 tablet, Refills 3, Tot. Refills 3, Maintenance, 06/26/20 10:46:00 EDT, Route to Pharmacy Electronically, [facility] # [facility], 155.4, cm, 12/28/19 10:37:00 EST,Height Start Date: 06/26/20 Status: Ordered losartan 100 mg oral tablet 1 tablet = 100 mg, By Mouth, Daily, # 90 tablet, 3 Refills, Maintenance, 07/08/20 16:41:00 EDT, Tablet, [facility] # [facility], 155.4, cm, 07/08/20 [...] Dates Health Status Cl inical Service Informant Dysuria Discharge Diagnosis 03/20/21 Hypertension Discharge Diagnosis 03/20/21 Heart murmur Discharge Diagnosis 03/20/21 Polycythemia Discharge Diagnosis 03/20/21 Vital Signs Most recent to oldest [Reference Range]: 1 2 Height 155.4 cm (03/20/21 10:22 AM) 155.4 cm (03/20/21 10:02 AM) Weight 75.7 kg (03/20/21 10:02 AM) Pulse Rate [55-90 bpm] 56 bpm (03/20/21 10:02 AM) Body Mass Index [18.5-24.99] 31.35 *>HHI* (03/20/21 10:02 AM) Blood Pressure [90-138/55-84 mm Hg] 136/ 60mm Hg (03/20/21 10:22 AM) 148/58mm Hg *H* (03/20/21 10:02 AM) Respiratory Rate [16-30 br/min] 12 br/mi n *L* (03/20/21 10:02 AM) Temperature [96.8-100.4 DegF] 97.8 DegF (03/20/21 10:02 AM) Blood pressure sites Arm, right (03/20/21 10:22 AM) Arm, right (03/20/21 10:02 AM) Temperature Route Oral (03/20/21 10:02 AM) Weight Obtained Via Standing scale (03/20/21 10:02 AM) Social History Social History Type Response Smoking Status Former smoker, quit more than 30 days ago entered on: 06/21/19 Sex
--- OUTSIDE RECORDS SUMMARY | 2023-07-25 08:04 | XMS_ITS | Continuity of Care Document ---
Author Name Unknown Organization [facility] Troy Ball Martinez lt Address [address] [place] [address]- Care Team Providers Care Roller Skater Name Role Phone Ash MURPHY, Dory Mckeon Primary Care Physician [phone] Encounter [facility] [place] Date(s): 12/29/21 - 01/28/22 DIONISIO Ball Adult [address] [place] [address]- Allergies, Adverse Reactions, Alerts Substance Reaction Severity [...] Not Giv en Patient Refuses 1Result Comment: [facility] Lot [id number] Medications albuterol CFC free 90 mcg/inh inhalation aerosol 2, puffs, Inhalation, Every 4 hours, PRN, # 18 Gm, Refills 5, Tot. Refills 5, Maintenance, :59:00 EDT, Aerosol, Route to Pharmacy Electronically, [id number], [facility] # 50, 155.4, cm, 06/30/21 11:00:00 EDT, [...] 90 tablet, 1 Refills, Maintenance, 12/16/2213:28:00 EST, [facility] # [facility], 155.4, cm, 10/22/21 11:57:00 EST, Height Start Date: 12/16/21 Status: Ordered chlorthalidone 25 mg oral tablet 25 mg, 1, tablet, By Mouth, Daily, # 30 tablet, Refills 0, Tot. Refills 0, Maintenance, 01/14/22 8:44:00 EST, Route to Pharmacy Electronically, [facility] # [facility], Partial fill upon patient request if the prescription is for a schedule II opioid drug... Start Date: 01/14/22 Status: Ordered Nasacort Allergy 24HR 55 mcg/inh [...]
--- OUTSIDE RECORDS SUMMARY | 2023-07-25 08:04 | XMS_ITS | Continuity of Care Document ---
Author Name Unknown Organization [facility] Rex Martinez lt Address [address] [place] [address]- Care Team Providers Care Desktop Support Manager Name Role Phone Gato ANDERSON, Erich Barrera Primary Care Physician [phone] Encounter [facility] Date(s): 06/26/20 - 07/26/20 [facility] Rex Adult [address] [place] [address]- [facility] Allergies, Adverse Reactions, Alerts Substance Reaction Severity [...] 06/26/20 10:45:00 EDT, Route to Pharmacy Electronically, [facility] # [facility], 155.4, cm, 12/28/19 10:37:00 EST,Height Start Date: 06/26/20 Status: Ordered atorvastatin 10 mg oral tablet 1 tablet = 10 mg, By Mouth, Daily, # 90 tablet, 3 Refills, Maintenance, 06/26/20 10:45:00 EDT, [facility] # [facility], 155.4, cm, 12/28/19 10:37:00 [...] EST, Height Start Date: 12/28/19 Status: Ordered predniSONE 10 mg oral tablet See Instructions, 6 tablets by mouth on the first day then reduce each daily dose by 1 tablet untilbottle is complete, # 21 tablet, 0 Refills, Maintenance, 07/10/20 9:30:00 EDT, [facility] # [facility],155.4, cm, 07/08/20 16:29:00 EDT, Height Start Date: 07/10/20 Status: Ordered Problem List Condition Effective Dates Status Health Status Inform ant Allergic rhinitis(Confirmed) Active Hypertension(Confirmed) Active Osteoporosis(Confirmed) 08/28/15 Active Social History Social History Type Response Smoking Status Former smoker, quit more than 30 days ago entered on: 06/21/19 Sex
--- OUTSIDE RECORDS SUMMARY | 2023-07-25 08:04 | XMS_ITS | Continuity of Care Document ---
Author Name Unknown Organization [facility] Troy Goodman Martinez lt Address [address] [place] [address]- Care Team Providers Care Automotive Shop Foreman Name Role Phone Ash MURPHY, Dory Mckeon Primary Care Physician Encounter [facility] [place] Date(s): 07/27/22 - 08/26/22 DIONISIO Goodman Adult [address] [place] [address]- Allergies, Adverse Reactions, Alerts Substance Reaction Severity [...] 2Result Comment: [facility] Lot [id number] Medications albuterol CFC free 90 mcg/inh inhalation aerosol 2, puffs, Inhalation, Every 4 hours, PRN, # 18 Gm, Refills 5, Tot. Refills 5, Maintenance, 03/04/2210:37:00 EDT, Aerosol, Route to Pharmacy Electronically, [id number], [facility], 155.4, cm, 03/04/22 [...] Maintenance, 03/04/22 10:37:00 EDT, Powder, [facility] # 50, Partial fill upon patient request if the prescription is for a schedule II opioid drug., 1 puffs Inhalation Daily, 155.4, cm, 03/04/22... Start Date: 03/04/22 Status: Ordered atorvastatin 10 mg oral tablet See Instructions, TAKE ONE TABLET BY MOUTH EVERY DAY, # 90 Unknown, 1 Refills, Maintenance, 06/23/22 16:31:00 EDT, [facility] # [facility], 155.4, cm, 06/03/22 12:42:00 EDT, Height Start Date: 06/23/22 Status: Ordered [place] Saline Nasal Mist 4 times a day, [...] Refills, Maintenance, 12/28/19 10:55:00 EST, [facility] # [facility], 2 sprays Nares, [...] Sex Patient Care team information Personnel Name: Dory Aleman NP Address: Address: [address] [place] [id number]
--- OUTSIDE RECORDS SUMMARY | 2023-07-25 08:04 | XMS_ITS | Continuity of Care Document ---
Author Name Unknown Organization [facility] Troy Ball Martinez lt Address [address] [place] [address]- Care Team Providers Care Harvest Contractor Name Role Phone Erich Hoskins MD Primary Care Physician Encounter [facility] [place] Date(s): 06/26/20 - 07/03/20 [facility] Troy Bondsley Adult [address] [place] [address]- [facility] Encounter Diagnosis Hypertension(Discharge Diagnosis) - 06/26/20 Osteoporosis(Discharge Diagnosis) - 06/26/20 General medical exam(Discharge Diagnosis) - 06/26/20 Attending Physician: Erich Hoskins MD Allergies, Adverse [...] 06/26/20 10:45:00 EDT, Route to Pharmacy Electronically, [facility] # [facility], 155.4, cm, 12/28/19 10:37:00 EST,Height Start Date: 06/26/20 Status: Ordered atorvastatin 10 mg oral tablet 1 tablet = 10 mg, By Mouth, Daily, # 90 tablet, 3 Refills, Maintenance, 06/26/20 10:45:00 EDT, [facility] # [facility], 155.4, cm, 12/28/19 10:37:00 [...] EST,Height Start Date: 06/26/20 Status: Ordered losartan 50 mg oral tablet 50 mg, 1, tablet, By Mouth, Daily, # 90 tablet, Refills 3, Tot. Refills 3, Maintenance, 12/12/19 17:00:00 EST, Route to Pharmacy Electronically, [facility] # [facility], 155.4, cm, 11/27/19 16:28:00 [...] Status Clinical Service Informant Hypertension Discharge Diagnosis 06/26/20 Osteoporosis Discharge Diagnosis 06/26/20 General medical exam Discharge Diagnosis 06/26/20 Vital Signs Most recent to oldest [Reference Range]: 1 Blood Pressure [90-138/55-84 mm Hg] 153/ 75mm Hg *H* (06/26/20 8:55 AM) Social History Social History Type Response Smoking Status Former smoker, quit more than 30 days ago entered on: 06/21/19 Sex
--- OUTSIDE RECORDS SUMMARY | 2023-07-25 08:04 | XMS_ITS | Continuity of Care Document ---
Author Name Unknown Organization [facility] Troy Goodman Martinez lt Address [address] [place] [address]- Care Team Providers Care Utility Worker Roller Shop Name Role Phone Erich Hoskins MD Primary Care Physician [phone] Encounter [facility] [place] Date(s): 09/02/21 - 09/09/21 [facility] Troy Goodman Adult [address] [place] [address]- Encounter Diagnosis COPD without exacerbation(Discharge Diagnosis) - 09/02/21 Allergic rhinitis(Discharge Diagnosis) - 09/02/21 Hypertension(Discharge Diagnosis) - 09/02/21 Attending Physician: Erich Hoskins MD Allergies, Adverse [...] :59:00 EDT, Aerosol, Route to Pharmacy Electronically, [id number], [facility], 155.4, cm, 06/30/21 11:00:00 EDT, He... Start Date: 07/14/21 Status: Ordered amLODIPine 5 mg oral tablet See Instructions, TAKE ONE TABLET BY MOUTH EVERY DAY AT BEDTIME, # 90 tablet, 1 Refills, [facility] # [facility], 155.4, cm, 06/30/21 [...] tablet, Refills 3, Route to Pharmacy Electronically, [facility] # [facility], 155.4, cm, 06/30/21 [...] Service Informant COPD without exacerbation Discharge Diagnosis 09/02/21 Allergic rhinitis Discharge Diagnosis 09/02/21 Hypertension Discharge Diagnosis 09/02/21 Vital Signs Most recent to oldest [Reference Range]: 1 2 3 Height 155.4 cm (09/02/21 1:16 PM) 155.4 cm (09/02/21 12:57 PM) 155.4 cm (09/02/21 12:51 PM) Weight 75.5 kg (09/02/21 12:51 PM) Oxygen Saturation [94-100 %] 96 % (09/02/21 12:51 PM) Pulse Rate [55-90 bpm] 86 bpm (09/02/21 12:51 PM) Body Mass Index [18.5-24.99] 31.26 *>HHI* (09/02/21 12:51 PM) Blood Pressure [90-138/55-84 mm Hg] 130/68mm Hg (09/02/21 1:16 PM) 143/79mm Hg *H* (09/02/21 12:57 PM) 146/75mm Hg *H* (09/02/21 12:51 PM) Temperature [96.8-100.4 DegF] 98.1 DegF (09/02/21 12:51 PM) Mode of Delivery (Oxygen) Room air (09/02/21 12:51 PM) Blood pressure sites Arm, left (09/02/21 1:16 PM) Arm, left (09/02/21 12:57 PM) Arm, left (09/02/21 12:51 PM) Temperature Route Oral (09/02/21 12:51 PM) Weight Obtained Via Standing scale (09/02/21 12:51 PM) Social History Social History Type Response Smoking Status Former smoker, quit more than 30 days ago entered on: 06/21/19 Sex
--- OUTSIDE RECORDS SUMMARY | 2023-07-25 08:04 | XMS_ITS | Continuity of Care Document ---
Author Name Unknown Organization [facility] Troy Ball Martinez lt Address [address] [place] [address]- Care Team Providers Care Handy Man Name Role Phone Ash MURPHY, Dory Mckeon Primary Care Physician [phone] En[place] [facility] [place] Date(s): 01/15/22 - 02/14/22 DIONISIO Ball Adult [address] [place] [address]- Allergies, Adverse Reactions, Alerts Substance Reaction Severity [...] Not Giv en Patient Refuses 1Result Comment: [facility] Lot [id number] Medications albuterol CFC free 90 mcg/inh inhalation aerosol 2, puffs, Inhalation, Every 4 hours, PRN, # 18 Gm, Refills 5, Tot. Refills 5, Maintenance, :59:00 EDT, Aerosol, Route to Pharmacy Electronically, [id number], [facility] # 50, 155.4, cm, 06/30/21 11:00:00 EDT, He... Start Date: 07/14/21 Status: Ordered Anoro Ellipta 62.5 mcg-25 mcg/inh inhalation powder 1 puffs, Inhalation, Daily, # 60 each, 11 Refills, Maintenance, 07/23/21 13:13:00 EDT, Powder, [facility] # [facility], Partial fill upon patient request if the prescription is for a schedule II opioid drug., 1 puffs Inhalation Daily, 155.4, cm, 06/30/21... Start Date: 07/23/21 Status: Ordered atorvastatin 10 mg oral tablet See Instructions, TAKE ONE TABLET BY MOUTH EVERY DAY, # 90 tablet, 1 Refills, Maintenance, 12/16/2213:28:00 EST, [facility] # [facility], 155.4, cm, 10/22/21 11:57:00 EST, Height Start Date: 12/16/21 Status: Ordered carvedilol 3.125 mg oral tablet 3.125 mg, 1, tablet, By Mouth, 2 times a day, # 60 tablet, Refills 0, Tot. Refills 0, Maintenance, 02/05/22 15:29:00 EDT, Route to Pharmacy Electronically, [facility] [...]
--- OUTSIDE RECORDS SUMMARY | 2023-07-25 08:05 | XMS_ITS | Continuity of Care Document ---
Author Name Unknown Organization [facility] Troy Goodman Martinez lt Address [address] [place] [address]- Care Team Providers Care City Superintendent Of Schools Name Role Phone Erich Hoskins MD Primary Care Physician Encounter [facility] Date(s): 07/20/21 - 08/19/21 [facility] Troy Goodman Adult [address] [place] [address]- Allergies, Adverse Reactions, Alerts Substance Reaction Severity [...] :59:00 EDT, Aerosol, Route to Pharmacy Electronically, [id number], [facility], 155.4, cm, 06/30/21 [...] # 90 tablet, 1 Refills, [facility] # [facility], 155.4, cm, 06/30/21 11:00:00 EDT, Height Start Date: 07/31/21 Status: Ordered Anoro Ellipta 62.5 mcg-25 mcg/inh inhalation powder 1 puffs, Inhalation, Daily, # 60 each, 11 Refills, Maintenance, 07/23/21 13:13:00 EDT, Powder, [facility] # [facility], Partial fill upon patient request if the prescription is for a schedule II opioid drug., 1 puffs Inhalation Daily, 155.4, cm, 06/30/21... Start Date: 07/23/21 Status: Ordered aspirin 81 mg oral delayed release tablet 81 mg, 1, tablet, By Mouth, Daily, # 90 tablet, Refills 3, Tot. Refills 3, Maintenance, 06/26/20 10:45:00 EDT, Route to Pharmacy Electronically, [facility] # [facility], 155.4, cm, 12/28/19 10:37:00 EST,Height Start Date: 06/26/20 Status: Ordered atorvastatin 10 mg oral tablet 1 tablet = 10 mg, By Mouth, Daily, # 90 tablet, 1 Refills, Maintenance, 06/24/21 14:03:00 EDT, [facility] # [facility], 155.4, cm, 05/26/21 11:13:00 EDT, Height Start Date: 06/24/21 Status: Ordered hydrochlorothiazide 25 mg oral tablet 1, tablet, By Mouth, Daily, # 90 tablet, Refills 3, Route to Pharmacy Electronically, [facility] # [facility], 155.4, cm, 06/30/21 11:00:00 EDT, Height Start Date: 07/31/21 Status: Ordered losartan 100 mg oral tablet 1 tablet = 100 mg, By Mouth, Daily, # 90 tablet, 3 Refills, Maintenance, 07/08/20 16:41:00 EDT, Tablet, [facility] # [facility], 155.4, cm, 07/08/20 [...]
--- OUTSIDE RECORDS SUMMARY | 2023-07-25 08:05 | XMS_ITS | Continuity of Care Document ---
Author Name Unknown Organization [facility] Rex Martinez lt Address [address] [place] [address]- Care Team Providers Care Automotive Parts Counter Person Name Role Phone Ash MURPHY, Dory Mckeon Primary Care Physician [phone] Encounter [facility] [place] [facility] [id number] Date(s): 07/28/22 - 08/04/22 [facility] Troy Bondsley Adult [address] [place] [address]- Encounter Diagnosis Hyperlipidemia(Discharge Diagnosis) - 07/28/22 Hypertension(Discharge Diagnosis) - 07/28/22 Urinary tract infection(Discharge Diagnosis) - 07/28/22 Attending Physician: Not on Staff, Attending MD [...] 2Result Comment: [facility] Lot [id number] Medications albuterol CFC free 90 mcg/inh inhalation aerosol 2, puffs, Inhalation, Every 4 hours, PRN, # 18 Gm, Refills 5, Tot. Refills 5, Maintenance, 03/04/2210:37:00 EDT, Aerosol, Route to Pharmacy Electronically, [id number], [facility] # [facility], [...] Unknown, 1 Refills, Maintenance, 06/23/22 16:31:00 EDT, [facility] # [facility], 155.4, cm, 06/03/22 12:42:00 EDT, Height Start Date: 06/23/22 Status: Ordered [place] Saline Nasal Mist 4 times a day, [...] Gm, 5 Refills, Maintenance, 12/28/19 10:55:00 EST, [facility] # [facility], 2 sprays Nares, Both [...] Status Clinical Service Informant Hyperlipidemia Discharge Diagnosis 07/28/22 Hypertension Discharge Diagnosis 07/28/22 Urinary tract infection Discharge Diagnosis 07/28/22 Vital Signs Most recent to oldest [Reference Range]: 1 2 Height 155.4 cm (07/28/22 11:34 AM) 155.4 cm (07/28/22 11:10 AM) Weight 76.2 kg (07/28/22 11:10 AM) Oxygen Saturation [94-100 %] 96 % (07/28/22 11:10 AM) Pulse Rate [55-90 bpm] 85 bpm (07/28/22 11:10 AM) Body Mass Index [18.5-24.99 kg/m2] 31.55 kg/m2 *>HHI* (07/28/22 11:10 AM) Blood Pressure [90-138/55-84 mm Hg] 130/ 62mm Hg (07/28/22 11:34 AM) 140/86mm Hg *H* (07/28/22 11:10 AM) Temperature [96.8-100.4 DegF] 98.2 DegF (07/28/22 11:10 AM) Blood pressure sites Arm, left (07/28/22 11:10 AM) Temperature Route Temporal (07/28/22 11:10 AM) Weight Obtained Via Standing scale (07/28/22 11:10 AM) Social History Social History Type Response Smoking Status Former smoker, quit more than 30 days ago entered on: 06/21/19 Sex Patient Care team information Personnel Name: Ash MURPHY, Dory Mckeon Address: Address: [address] [place] [id number]
--- OUTSIDE RECORDS SUMMARY | 2023-07-25 08:05 | XMS_ITS | Continuity of Care Document ---
Author Name Unknown Organization [facility] Troy Goodman Martinez lt Address [address] [place] [address]- Care Team Providers Care Certified Medical Assistant Name Role Phone Erich Hoskins MD Primary Care Physician [phone] Encounter [facility] [place] Date(s): 11/27/19 - 12/04/19 [facility] Troy Goodman Adult [address] [place] [address]- [facility] Encounter Diagnosis Hypertension(Discharge Diagnosis) - 11/27/19 Attending Physician: Erich Hoskins MD Allergies, Adverse Reactions, Alerts Substance Reaction Severity Status sulfa drugs Rash Active Immunizations Given and Recorded Vaccine Date Status Refusal Reason pneumococcal 23-valent vaccine 11/07/11 Recorded diphtheria/tetanus/pertussis, acel(DTaP) 11/07/10 Recorded Medications Claritin 5 mg oral tablet, chewable 1 tablet = 5 mg, Daily, 0 Refills, Maintenance, 09/27/19 11:32:24 EST Start Date: 09/27/19 Status: Ordered hydrochlorothiazide-lisinopril 12.5 mg-10 mg oral tablet 1 tablet, By Mouth, Daily, # 30 tablet, 11 Refills, Maintenance, 11/27/19 16:36:00 EST, Tablet, [facility], 1 tablet By Mouth Daily, 155.4, cm, 11/27/19 16:28:00 EST, Height Start Date: 11/27/19 Status: Ordered Problem List Condition Effective Dates Status Health Status Inform ant Allergic rhinitis(Confirmed) Active Cigarette smoker(Confirmed) Active Hypertension(Confirmed) Active Osteoporosis(Confirmed) 08/28/15 Active Diagnosis Diagnosis Type Effective Dates Health Status Cl inical Service Informant Hypertension Discharge Diagnosis 11/27/19 Vital Signs Most recent to oldest [Reference Range]: 1 Height 155.4 cm (11/27/19 4:28 PM) Weight 67.6 kg (11/27/19 4:28 PM) Oxygen Saturation [94-100 %] 97 % (11/27/19 4:28 PM) Pulse Rate [55-90 bpm] 82 bpm (11/27/19 4:28 PM) Body Mass Index [18.5-24.99] 27.99 *H* (11/27/19 4:28 PM) Blood Pressure [90-138/55-84 mm Hg] 146/ 70mm Hg *H* (11/27/19 4:28 PM) Temperature [96.8-100.4 DegF] 98.2 DegF (11/27/19 4:28 PM) Mode of Delivery (Oxygen) Room air (11/27/19 4:28 PM) Blood pressure sites Arm, left (11/27/19 4:28 PM) Temperature Route Oral (11/27/19 4:28 PM) Weight Obtained Via Standing scale (11/27/19 4:28 PM) Social History Social History Type Response Smoking Status Former smoker, quit more than 30 days ago entered on: 06/21/19 Sex
--- OUTSIDE RECORDS SUMMARY | 2023-07-25 08:05 | XMS_ITS | Continuity of Care Document ---
Author Name Unknown Organization [facility] Address [address] [place] [address]- Care Team Providers Care Air Export Agent Name Role Phone Erich Hoskins MD Primary Care Physician Encounter [facility] [place] Date(s): 01/26/21 - 04/23/21 [facility] [address] [place] [address]- Attending Physician: Alessandro Pride MD Admitting Physician: Alessandro Pride MD Referring Physician: Erich Hoskins MD Allergies, [...] 03/13/21 9:45:00 EDT, Route to Pharmacy Electronically, [facility] # [facility], Partial fill upon patient [...] Refills, Maintenance, 06/26/20 10:45:00 EDT, [facility] # [...] Refills, Maintenance, 12/28/19 10:55:00 EST, [facility] # [facility], 2 sprays Nares, [...]
--- OUTSIDE RECORDS SUMMARY | 2023-07-25 08:05 | XMS_ITS | Continuity of Care Document ---
Author Name Unknown Organization [facility] Rex Martinez lt Address [address] [place] [address]- Care Team Providers Care Character Artist Name Role Phone Erich Hoskins MD Primary Care Physician Encounter [facility] Date(s): 07/16/20 - 07/23/20 [facility] Adult [address] [place] [address]- [facility] Attending Physician: Not on Staff, Attending MD [...] tablet, 3 Refills, Maintenance, 06/26/20 10:45:00 EDT, [facility] # [facility], [...] 3 Refills, Maintenance, 07/08/20 16:41:00 EDT, Tablet, [facility] # [facility], 155.4, cm, 07/08/20 [...] tablet, 0 Refills, Maintenance, 07/10/20 9:30:00 EDT, [facility] # 50,155.4, cm, 07/08/20 16:29:00 EDT, Height Start Date: 07/10/20 Status: Ordered Problem List Condition Effective Dates Status Health Status Inform ant Allergic rhinitis(Confirmed) Active Hypertension(Confirmed) Active Osteoporosis(Confirmed) 08/28/15 Active Vital Signs Most recent to oldest [Reference Range]: 1 Blood Pressure [90-138/55-84 mm Hg] 142/ 60mm Hg *H* (07/16/20 1:35 PM) Blood pressure sites Arm, left (07/16/20 1:35 PM) Social History Social History Type Response Smoking Status Former smoker, quit more than 30 days ago entered on: 06/21/19 Sex
--- OUTSIDE RECORDS SUMMARY | 2023-07-25 08:05 | XMS_ITS | Continuity of Care Document ---
Author Name Unknown Organization [facility] Troy Ball Martinez lt Address [address] [place] [address]- Care Team Providers Care Crm Solution Architect Name Role Phone Ash MURPHY, Dory Mckeon Primary Care Physician [phone] Encounter [facility] [place] Date(s): 12/14/22 - 01/13/23 DIONISIO Ball Adult [address] [place] [address]- Allergies, Adverse Reactions, Alerts Substance Reaction Severity [...] 2Result Comment: [facility] Lot [id number] Medications albuterol CFC free 90 mcg/inh inhalation aerosol 2, puffs, Inhalation, Every 4 hours, PRN, # 18 Gm, Refills 5, Tot. Refills 5, Maintenance, 03/04/2210:37:00 EDT, Aerosol, Route to Pharmacy Electronically, [id number], [facility] # [facility], 155.4, [...] tablet, 1 Refills, Maintenance, 12/16/22 14:42:00 EST, [facility] # [facility], 155.4, cm, 12/02/22 14:42:00 EST, Height Start Date: 12/16/22 Status: Ordered [place] Saline Nasal Mist 4 times a day, 0 Refills, Maintenance, 03/30/22 11:55:00 EDT, Partial fill upon patient request if the prescription is for a schedule II opioid drug. Start Date: 03/30/22 Status: Ordered chlorthalidone 25 mg oral tablet 1, tablet, By Mouth, Daily, # 30 tablet, Refills 5, Maintenance, 08/31/22 7:48:00 EDT, [facility] to [facility] Electronically, [facility] [...] Personnel Name: Ash MURPHY, Dory Mckeon [facility] Associate Professional Member Role: PCP Address: Address: [address] [place] [address]- Care Team Related Persons Name: LIBORIO BENNETT
--- OUTSIDE RECORDS SUMMARY | 2023-07-25 08:05 | XMS_ITS | Continuity of Care Document ---
Author Name Unknown Organization [facility] Address [address] [place] [address]- Care Team Providers Care Surveyor Helper Rod Name Role Phone Ash MURPHY, Dory Mckeon Primary Care Physician Encounter 08/19/22 - 09/22/22 [facility] [address], [address] [place], [place] [address] Attending Physician: Monisha Hobbs MD Admitting Physician: Monisha Hobbs MD Referring Physician: Monisha Hobbs MD Allergies, Adverse Reactions, Alerts Substance Reaction [...] 2Result Comment: [facility] Lot [id number] Medications albuterol CFC free 90 mcg/inh inhalation aerosol 2, puffs, Inhalation, Every 4 hours, PRN, # 18 Gm, Refills 5, Tot. Refills 5, Maintenance, 03/04/2210:37:00 EDT, Aerosol, Route to Pharmacy Electronically, [id number], [facility] # [facility], 155.4, cm, 03/04/22 10:34:00 [...] 11 Refills, Maintenance, 03/04/22 10:37:00 EDT, Powder, [facility] # [facility], Partial fill upon patient request if the prescription is for a schedule II opioid drug., 1 puffs Inhalation Daily, 155.4, cm, 03/04/22... Start Date: 03/04/22 Status: Ordered atorvastatin 10 mg oral tablet See Instructions, TAKE ONE TABLET BY MOUTH EVERY DAY, # 90 Unknown, 1 Refills, Maintenance, 06/23/22 16:31:00 EDT, [facility] # [facility], 155.4, cm, 06/03/22 12:42:00 EDT, Height Start Date: 06/23/22 Status: Ordered [place] Saline Nasal Mist 4 times a day, 0 Refills, Maintenance, 03/30/22 11:55:00 EDT, Partial fill upon patient request if the prescription is for a schedule II opioid drug. Start Date: 03/30/22 Status: Ordered chlorthalidone 25 mg oral tablet 1, tablet, By Mouth, Daily, # 30 tablet, Refills 5, Maintenance, 08/31/22 7:48:00 EDT, Route to Pharmacy Electronically, [facility] # [facility], 155.4, cm, 07/28/22 11:34:00 EDT, Height Start Date: 08/31/22 Status: Ordered Nasacort Allergy 24HR 55 mcg/inh nasal spray 2 sprays, Nares, Both, Daily, # 16.5 Gm, 5 Refills, Maintenance, 12/28/19 10:55:00 EST, [facility] # [facility], 2 sprays Nares, Both [...] Team Personnel Name: Dory Aleman NP Position: S PCO Associate Professional Member Role: PCP Address: Address: [address] [place] [address]- Care Team Related Persons Name: LIBORIO BENNETT
--- OUTSIDE RECORDS SUMMARY | 2023-07-25 08:05 | XMS_ITS | Continuity of Care Document ---
Author Name Unknown Organization [facility] Troy Goodman Martinez lt Address [address] [place] [address]- Care Team Providers Care Auger Supervisor Name Role Phone Ash MURPHY, Dory Mckeon Primary Care Physician Encounter [facility] Date(s): 05/03/22 - 05/10/22 DIONISIO Goodman Adult [address] [place] [address]- Encounter Diagnosis COPD without exacerbation(Discharge Diagnosis) - 05/03/22 Hypertension(Discharge Diagnosis) - 05/03/22 Hypercalcemia(Discharge Diagnosis) - 05/03/22 Attending Physician: Dory Aleman NP Referring Physician: Angella ANDERSON, Roger Browne Allergies, [...] 2Result Comment: [facility] Lot [id number] Medications albuterol CFC free 90 mcg/inh inhalation aerosol 2, puffs, Inhalation, Every 4 hours, PRN, # 18 Gm, Refills 5, Tot. Refills 5, Maintenance, 03/04/2210:37:00 EDT, Aerosol, Route to Pharmacy Electronically, [id number], [facility], 155.4, [...] 11 Refills, Maintenance, 03/04/22 10:37:00 EDT, Powder, [facility] # [facility], Partial fill upon patient request if the prescription is for a schedule II opioid drug., 1 puffs Inhalation Daily, 155.4, cm, 03/04/22... Start Date: 03/04/22 Status: Ordered atorvastatin 10 mg oral tablet See Instructions, TAKE ONE TABLET BY MOUTH EVERY DAY, # 90 tablet, 1 Refills, Maintenance, 12/16/2213:28:00 EST, [facility] # [facility], 155.4, cm, 10/22/21 11:57:00 EST, Height Start Date: 12/16/21 Status: Ordered [place] Saline Nasal Mist 4 times a day, [...] Service Informant COPD without exacerbation Discharge Diagnosis 05/03/22 Hypertension Discharge Diagnosis 05/03/22 Hypercalcemia Discharge Diagnosis 05/03/22 Vital Signs Most recent to oldest [Reference Range]: 1 Height 155.4 cm (05/03/22 9:58 AM) Weight 75.1 kg (05/03/22 9:58 AM) Oxygen Saturation [94-100 %] 97 % (05/03/22 9:58 AM) Pulse Rate [55-90 bpm] 83 bpm (05/03/22 9:58 AM) Body Mass Index [18.5-24.99] 31.1 *>HHI* (05/03/22 9:58 AM) Blood Pressure [90-138/55-84 mm Hg] 132/ 74mm Hg (05/03/22 9:58 AM) Temperature [96.8-100.4 DegF] 97.4 DegF (05/03/22 9:58 AM) Blood pressure sites Arm, left (05/03/22 9:58 AM) Temperature Route Temporal (05/03/22 9:58 AM) Weight Obtained Via Standing scale (05/03/22 9:58 AM) Social History Social History Type Response Smoking Status Former smoker, quit more than 30 days ago entered on: 06/21/19 Sex
--- OUTSIDE RECORDS SUMMARY | 2023-07-25 08:05 | XMS_ITS | Continuity of Care Document ---
Author Name Unknown Organization [facility] Address [address] [address]- Care Team Providers Care Unified Communications Engineer Name Role Phone Gato ANDERSON, Erich Barrera Primary Care Physician [phone] [place] [facility] Date(s): 06/08/21 - 07/08/21 [facility] [address] [address] [place] Allergies, Adverse Reactions, Alerts Substance Reaction Severity [...] 05/04/21 11:13:00 EDT, Route to Pharmacy Electronically, [email or web address], Partial fill upon patient [...]
--- OUTSIDE RECORDS SUMMARY | 2023-07-25 08:05 | XMS_ITS | Continuity of Care Document ---
Author Name Unknown Organization [facility] Troy Goodman Martinez lt Address [address] [place] [address]- Care Team Providers Care Marine Superintendent Name Role Phone Erich Hoskins MD Primary Care Physician En[place] [facility] [place] Date(s): 09/02/21 - 10/02/21 DIONISIO Goodman Adult [address] [place] [address]- Attending Physician: Admtr, Ar8 Admitting Physician: Admtr, [...] :59:00 EDT, Aerosol, Route to Pharmacy Electronically, [id number], [facility], 155.4, cm, 06/30/21 11:00:00 EDT, He... Start Date: 07/14/21 Status: Ordered amLODIPine 5 mg oral tablet See Instructions, TAKE ONE TABLET BY MOUTH EVERY DAY AT BEDTIME, # 90 tablet, 1 Refills, [facility] # [facility], 155.4, cm, 06/30/21 11:00:00 EDT, Height Start Date: 07/31/21 Status: Ordered Anoro Ellipta 62.5 mcg-25 mcg/inh inhalation powder 1 puffs, Inhalation, Daily, # 60 each, 11 Refills, Maintenance, 07/23/21 13:13:00 EDT, Powder, [facility] # [facility], Partial fill upon patient request if the prescription is for a schedule II opioid drug., 1 puffs Inhalation Daily, 155.4, cm, 06/30/21... Start Date: 07/23/21 Status: Ordered atorvastatin 10 mg oral tablet 1 tablet = 10 mg, By Mouth, Daily, # 90 tablet, 1 Refills, Maintenance, 06/24/21 14:03:00 EDT, [facility] # [facility], 155.4, cm, 05/26/21 11:13:00 EDT, Height Start Date: 06/24/21 Status: Ordered hydrochlorothiazide 25 mg oral tablet 1, tablet, By Mouth, Daily, # 90 tablet, Refills 3, Route to Pharmacy Electronically, [facility] # [facility], 155.4, cm, 06/30/21 11:00:00 EDT, Height Start Date: 07/31/21 Status: Ordered Nasacort Allergy 24HR 55 mcg/inh nasal spray 2 sprays, Nares, Both, Daily, # 16.5 Gm, 5 Refills, Maintenance, 12/28/19 10:55:00 EST, [facility] # [facility], 2 sprays Nares, [...] Hypertension(Confirmed) Active Lightheadedness(Confirmed) Active Osteoporosis(Confirmed) 08/28/15 Active Procedures Procedure Date Related Diagnosis Body Site Status Bone density scan 1 10/05/19 Compl eted Bone density scan 2, 3 08/28/15 Co mpleted [address] [place] [address] [facility] Social History Social History Type Response Smoking Status Former smoker, quit more than 30 days ago entered on: 06/21/19 Sex
--- OUTSIDE RECORDS SUMMARY | 2023-07-25 08:05 | XMS_ITS | Continuity of Care Document ---
Author Name Unknown Organization [facility] Troy Ball Martinez lt Address [address] [place] [address]- Care Team Providers Care Metal Fence Erector Name Role Phone Ash MURPHY, Dory Mckeon Primary Care Physician Encounter [facility] Date(s): 01/14/22 - 01/21/22 DIONISIO Ball Adult [address] [place] [address]- Encounter Diagnosis Hypertension(Discharge Diagnosis) - 01/14/22 Hyperlipidemia(Discharge Diagnosis) - 01/14/22 Serum calcium elevated(Discharge Diagnosis) - 01/14/22 Attending Physician: Ash MURPHY, Dory Mckeon Referring [...] 1Result Comment: [facility] Lot [id number] Medications albuterol CFC free 90 mcg/inh inhalation aerosol 2, puffs, Inhalation, Every 4 hours, PRN, # 18 Gm, Refills 5, Tot. Refills 5, Maintenance, 219:59:00 EDT, Aerosol, Route to Pharmacy Electronically, [id number], [facility] # 50, 155.4, cm, 06/30/21 11:00:00 EDT, He... Start Date: 07/14/21 Status: Ordered Anoro Ellipta 62.5 mcg-25 mcg/inh inhalation powder 1 puffs, Inhalation, Daily, # 60 each, 11 Refills, Maintenance, 07/23/21 13:13:00 EDT, Powder, [facility] # [facility], Partial fill upon patient request if the prescription is for a schedule II opioid drug., 1 puffs Inhalation Daily, 155.4, cm, 06/30/21... Start Date: 07/23/21 Status: Ordered atorvastatin 10 mg oral tablet See Instructions, TAKE ONE TABLET BY MOUTH EVERY DAY, # 90 tablet, 1 Refills, Maintenance, 12/16/2213:28:00 EST, [facility] # [facility], 155.4, cm, 10/22/21 11:57:00 EST, Height Start Date: 12/16/21 Status: Ordered chlorthalidone 25 mg oral tablet 25 mg, 1, tablet, By Mouth, Daily, # 30 tablet, Refills 0, Tot. Refills 0, Maintenance, 01/14/22 8:44:00 EST, Route to Pharmacy Electronically, [facility] [...] Status Clinical Service Informant Hypertension Discharge Diagnosis 01/14/22 Hyperlipidemia Discharge Diagnosis 01/14/22 Serum calcium elevated Discharge Diagnosis 01/14/22 Vital Signs Most recent to oldest [Reference Range]: 1 2 3 Height 155.4 cm (01/14/22 8:50 AM) 155.4 cm (01/14/22 8:39 AM) 155.4 cm (01/14/22 8:29 AM) Weight 76.4 kg (01/14/22 8:29 AM) Oxygen Saturation [94-100 %] 96 % (01/14/22 8:29 AM) Pulse Rate [55-90 bpm] 100 bpm *H* (01/14/22 8:29 AM) Body Mass Index [18.5-24.99] 31.64 *>HHI* (01/14/22 8:29 AM) Blood Pressure [90-138/55-84 mm Hg] 142/72mm Hg *H* (01/14/22 8:50 AM) 170/81mm Hg *H* (01/14/22 8:39 AM) 154/74mm Hg *H* (01/14/22 8:29 AM) Temperature [96.8-100.4 DegF] 97.4 DegF (01/14/22 8:29 AM) Blood pressure sites Arm, left (01/14/22 8:39 AM) Arm, left (01/14/22 8:29 AM) Temperature Route Oral (01/14/22 8:29 AM) Weight Obtained Via Standing scale (01/14/22 8:29 AM) Social History Social History Type Response Smoking Status Former smoker, quit more than 30 days ago entered on: 06/21/19 Sex
--- OUTSIDE RECORDS SUMMARY | 2023-07-25 08:05 | XMS_ITS | Continuity of Care Document ---
Author Name Unknown Organization [facility] Rex Martinez lt Address [address] [place] [address]- Care Team Providers Care Environmental Program Manager Name Role Phone Erich Hoskins MD Primary Care Physician Encounter [facility] Date(s): 01/20/21 - 02/19/21 [facility] Troy Bondsley Adult [address] [place] [address]- Allergies, Adverse Reactions, Alerts Substance Reaction Severity [...]
--- OUTSIDE RECORDS SUMMARY | 2023-07-25 08:05 | XMS_ITS | Continuity of Care Document ---
Author Name Unknown Organization [facility] Troy Ball Martinez lt Address [address] [place] [address]- Care Team Providers Care Supervisor Tellers Name Role Phone Ash MURPHY, Dory Mckeon Primary Care Physician En[place] [facility] Date(s): 01/14/23 - 02/13/23 DIONISIO Ball Adult [address] [place] [address]- Allergies, Adverse Reactions, Alerts Substance Reaction Severity [...] 2Result Comment: [facility] Lot [id number] Medications albuterol CFC free 90 mcg/inh inhalation aerosol 2, puffs, Inhalation, Every 4 hours, PRN, # 18 Gm, Refills 5, Tot. Refills 5, Maintenance, 03/04/2210:37:00 EDT, Aerosol, Route to Pharmacy Electronically, [id number], [facility], 155.4, cm, 03/04/22 [...] 11 Refills, Maintenance, 03/04/22 10:37:00 EDT, Powder, [facility] # [facility], Partial fill upon patient request if the prescription is for a schedule II opioid drug., 1 puffs Inhalation Daily, 155.4, cm, 03/04/22... Start Date: 03/04/22 Status: Ordered atorvastatin 10 mg oral tablet 1 tablet, By Mouth, Daily, # 90 tablet, 1 Refills, Maintenance, 12/16/22 14:42:00 EST, [facility] # [facility], 155.4, cm, 12/02/22 14:42:00 EST, Height Start Date: 12/16/22 Status: Ordered [place] Saline Nasal Mist 4 times a day, 0 Refills, Maintenance, 03/30/22 11:55:00 EDT, Partial fill upon patient request if the prescription is for a schedule II opioid drug. Start Date: 03/30/22 Status: Ordered chlorthalidone 25 mg oral tablet 1, tablet, By Mouth, Daily, # 30 tablet, Refills 5, Maintenance, 08/31/22 7:48:00 EDT, Route to Pharmacy Electronically, [facility], 155.4, cm, 07/28/22 11:34:00 EDT, Height Start Date: 08/31/22 Status: Ordered Nasacort Allergy 24HR 55 mcg/inh nasal spray 2 sprays, Nares, Both, Daily, # 16.5 Gm, 5 Refills, Maintenance, 12/28/19 10:55:00 EST, [facility] # [facility], 2 sprays [...] Personnel Name: Ash MURPHY, Dory Mckeon Position: [facility] PCO Associate Professional Member Role: PCP Address: Address: [address] [place] [address]- Care Team Related Persons Name: LIBORIO BENNETT
--- OUTSIDE RECORDS SUMMARY | 2023-07-25 08:05 | XMS_ITS | Continuity of Care Document ---
Author Name Unknown Organization [facility] Troy Goodman Martinez lt Address [address] [place] [address]- Care Team Providers Care Scout Leaser Name Role Phone Erich Hoskins MD Primary Care Physician [place] [facility]s): 06/24/21 - 07/24/21 [facility] Troy Goodman Adult [address] [place] [address]- Allergies, Adverse Reactions, Alerts Substance Reaction Severity [...] :59:00 EDT, Aerosol, Route to Pharmacy Electronically, [id number], [facility], 155.4, cm, 06/30/21 [...] 05/04/21 11:13:00 EDT, Route to Pharmacy Electronically, [facility], Partial fill upon patient request if the prescription is for a schedule II... Start Date: 05/04/21 Status: Ordered Anoro Ellipta 62.5 mcg-25 mcg/inh inhalation powder 1 puffs, Inhalation, Daily, # 60 each, 11 Refills, Maintenance, 07/23/21 13:13:00 EDT, Powder, [facility] # [facility], Partial fill upon patient request if the prescription is for a schedule II opioid drug., 1 puffs Inhalation Daily, 155.4, cm, 06/30/21... Start Date: 07/23/21 Status: Ordered aspirin 81 mg oral delayed release tablet 81 mg, 1, tablet, By Mouth, Daily, # 90 tablet, Refills 3, Tot. Refills 3, Maintenance, 06/26/20 10:45:00 EDT, Route to Pharmacy Electronically, [facility], 155.4, cm, 12/28/19 10:37:00 EST,Height Start Date: 06/26/20 Status: Ordered atorvastatin 10 mg oral tablet 1 tablet = 10 mg, By Mouth, Daily, # 90 tablet, 1 Refills, Maintenance, 06/24/21 14:03:00 EDT, [facility] # [facility], 155.4, cm, 05/26/21 [...] 3 Refills, Maintenance, 07/08/20 16:41:00 EDT, Tablet, [facility], 155.4, cm, 07/08/20 16:29:00 [...]
--- OUTSIDE RECORDS SUMMARY | 2023-07-25 08:05 | XMS_ITS | Continuity of Care Document ---
Author Name Unknown Organization [facility] Troy Goodman Martinez lt Address [address] [place] [address]- Care Team Providers Care Outside Energy Sales Representatives Name Role Phone Ash MURPHY, Dory Mckeon Primary Care Physician [phone] Encounter [facility] [place] Date(s): 10/05/22 - 10/12/22 [facility] Troy Goodman Adult [address] [place] [address]- Encounter Diagnosis Acute sinusitis(Discharge Diagnosis) - 10/05/22 Attending Physician: Ash MURPHY, Dory Mckeon Allergies, [...] 2Result Comment: [facility] Lot [id number] Medications albuterol CFC free 90 mcg/inh inhalation aerosol 2, puffs, Inhalation, Every 4 hours, PRN, # 18 Gm, Refills 5, Tot. Refills 5, Maintenance, 03/04/2210:37:00 EDT, Aerosol, Route to Pharmacy Electronically, [id number], [facility], 155.4, cm, 03/04/22 [...] 11 Refills, Maintenance, 03/04/22 10:37:00 EDT, Powder, [facility], Partial fill upon patient request if the prescription is for a schedule II opioid drug., 1 puffs Inhalation Daily, 155.4, cm, 03/04/22... Start Date: 03/04/22 Status: Ordered atorvastatin 10 mg oral tablet See Instructions, TAKE ONE TABLET BY MOUTH EVERY DAY, # 90 Unknown, 1 Refills, Maintenance, 06/23/22 16:31:00 EDT, [facility], 155.4, cm, 06/03/22 12:42:00 EDT, Height Start Date: 06/23/22 Status: Ordered [place] Saline Nasal Mist 4 times a day, 0 Refills, Maintenance, 03/30/22 11:55:00 EDT, Partial fill upon patient request if the prescription is for a schedule II opioid drug. Start Date: 03/30/22 Status: Ordered chlorthalidone 25 mg oral tablet 1, tablet, By Mouth, Daily, # 30 tablet, Refills 5, Maintenance, 08/31/22 7:48:00 EDT, Route to Pharmacy Electronically, [facility], 155.4, cm, 07/28/22 11:34:00 EDT, Height Start Date: 08/31/22 Status: Ordered doxycycline hyclate 100 mg oral capsule 1 capsule = 100 mg, By Mouth, 2 times a day, for 10 days, # 20 capsule, 0 Refills, Acute 10/15/22 8:31:00 EST, 10/05/22 8:31:00 EST, [facility], Partial fill upon patient request if the prescription is for a schedule II opioid drug., 155.4, c... Start Date: 10/05/22 Stop Date: 10/15/22 Status: Ordered Nasacort Allergy 24HR 55 mcg/inh [...] Dates Health Status Cl inical Service Informant Acute sinusitis Discharge Diagnosis 10/05/22 Vital Signs Most recent to oldest [Reference Range]: 1 Height 155.4 cm (10/05/22 8:20 AM) Social History Social History Type Response Smoking Status Former smoker, quit more than 30 days ago entered on: 06/21/19 Sex Patient Care team information Care Team Personnel Name: Ash MURPHY, Dory Mckeon Position: [facility] PCO Associate Professional Member Role: PCP Address: Address: [address] [place] [address]- Care Team Related Persons Name: LIBORIO BENNETT
--- OUTSIDE RECORDS SUMMARY | 2023-07-25 08:05 | XMS_ITS | Continuity of Care Document ---
Author Name Unknown Organization [facility] Troy Goodman Martinez lt Address [address] [place] [address]- Care Team Providers Care Salvage Mechanic Name Role Phone Erich Hoskins MD Primary Care Physician [place] [facility] [place](s): 06/24/21 - 07/24/21 [facility] Troy Goodman Adult [address] [place] [address]- Allergies, Adverse Reactions, Alerts Substance Reaction Severity [...] :59:00 EDT, Aerosol, Route to Pharmacy Electronically, [id number], [facility], 155.4, cm, 06/30/21 [...] 05/04/21 11:13:00 EDT, Route to Pharmacy Electronically, [facility] # [facility], Partial fill upon patient request if the prescription is for a schedule II... Start Date: 05/04/21 Status: Ordered Anoro Ellipta 62.5 mcg-25 mcg/inh inhalation powder 1 puffs, Inhalation, Daily, # 60 each, 11 Refills, Maintenance, 07/23/21 13:13:00 EDT, Powder, [facility] # [facility], Partial fill upon patient request if the prescription is for a schedule II opioid drug., 1 puffs Inhalation Daily, 155.4, cm, 06/30/21... Start Date: 07/23/21 Status: Ordered aspirin 81 mg oral delayed release tablet 81 mg, 1, tablet, By Mouth, Daily, # 90 tablet, Refills 3, Tot. Refills 3, Maintenance, 06/26/20 10:45:00 EDT, Route to Pharmacy Electronically, [facility] # [facility], 155.4, cm, 12/28/19 10:37:00 EST,Height Start Date: 06/26/20 Status: Ordered atorvastatin 10 mg oral tablet 1 tablet = 10 mg, By Mouth, Daily, # 90 tablet, 1 Refills, Maintenance, 06/24/21 14:03:00 EDT, [facility] # [facility], 155.4, cm, 05/26/21 11:13:00 EDT, Height Start Date: 06/24/21 Status: Ordered hydrochlorothiazide 25 mg oral tablet 25 mg, 1, tablet, By Mouth, Daily, # 90 tablet, Refills 3, Tot. Refills 3, Maintenance, 06/26/20 10:46:00 EDT, Route to Pharmacy Electronically, [facility] # [facility], 155.4, cm, 12/28/19 [...]
--- OUTSIDE RECORDS SUMMARY | 2023-07-25 08:05 | XMS_ITS | Continuity of Care Document ---
Author Name Unknown Organization [facility] Troy Ball Martinez lt Address [address] [place] [address]- Care Team Providers Care Acid Dipper Name Role Phone Erich Hoskins MD Primary Care Physician Encounter [facility] Date(s): 11/27/19 - 12/07/[address] [facility] Troy Bondsley Adult [address] [place] [address]- [facility] Attending Physician: Oleg Ontiveros Admitting Physician: AdmtrOleg Referring Physician: Admtr, Ar8 Allergies, Adverse Reactions, [...] 11 Refills, Maintenance, 11/27/19 16:36:00 EST, Tablet, [facility] # [facility], 1 tablet By Mouth Daily, 155.4, cm, 11/27/19 16:28:00 EST, Height Start Date: 11/27/19 Status: Ordered Problem List Condition Effective Dates Status Health Status Inform ant Allergic rhinitis(Confirmed) Active Cigarette smoker(Confirmed) Active Hypertension(Confirmed) Active Osteoporosis(Confirmed) 08/28/15 Active Procedures Procedure Date Related Diagnosis Body Site Status Bone density scan 1 10/05/19 Compl eted Bone density scan 2, 3 08/28/15 Co mpleted [address] [place] [address] FRAX score Social History Social History Type Response Smoking Status Former smoker, quit more than 30 days ago entered on: 06/21/19 Sex
--- OUTSIDE RECORDS SUMMARY | 2023-07-25 08:05 | XMS_ITS | Continuity of Care Document ---
Author Name Unknown Organization [facility] Rex Martinez lt Address [address] [place] [address]- Care Team Providers Care Raw Sampler Name Role Phone Gato ANDERSON, Erich Barrera Primary Care Physician Encounter [facility] Date(s): 07/09/20 - 08/08/20 [facility] Adult [address] [place] [address]- [facility] Allergies, Adverse Reactions, Alerts Substance Reaction [...] 06/26/20 10:45:00 EDT, Route to Pharmacy Electronically, [facility] # [facility], 155.4, cm, 12/28/19 10:37:00 EST,Height Start Date: 06/26/20 Status: Ordered atorvastatin 10 mg oral tablet 1 tablet = 10 mg, By Mouth, Daily, # 90 tablet, 3 Refills, Maintenance, 06/26/20 10:45:00 EDT, [facility] # [facility], 155.4, cm, 12/28/19 10:37:00 [...] EDT, Route to Pharmacy Electronically, [facility] # [facility], 155.4, cm, 12/28/19 10:37:00 EST,Height Start Date: 06/26/20 Status: Ordered losartan 100 mg oral tablet 1 tablet = 100 mg, By Mouth, Daily, # 90 tablet, 3 Refills, Maintenance, 07/08/20 16:41:00 EDT, Tablet, [facility] # [facility], 155.4, cm, 07/08/20 [...] tablet, 0 Refills, Maintenance, 07/10/20 9:30:00 EDT, [facility] # [facility],155.4, cm, 07/08/20 16:29:00 EDT, Height Start Date: 07/10/20 Status: Ordered Problem List Condition Effective Dates Status Health Status Inform ant Allergic rhinitis(Confirmed) Active Hypertension(Confirmed) Active Osteoporosis(Confirmed) 08/28/15 Active Social History Social History Type Response Smoking Status Former smoker, quit more than 30 days ago entered on: 06/21/19 Sex
--- OUTSIDE RECORDS SUMMARY | 2023-07-25 08:06 | XMS_ITS | Continuity of Care Document ---
Author Name Unknown Organization [facility] Rex Martinez lt Address [address] [place] [address]- Care Team Providers Care Planting Machine Operator Name Role Phone Ash MURPHY, Dory Mckeon Primary Care Physician [phone] [place] [facility] [place](s): 12/16/21 - 01/15/22 [facility] Troy Bondsley Adult [address] [place] [address]- Allergies, Adverse Reactions, Alerts Substance Reaction Severity [...] Not Giv en Patient Refuses 1Result Comment: [facility] Lot [id number] Medications albuterol CFC free 90 mcg/inh inhalation aerosol 2, puffs, Inhalation, Every 4 hours, PRN, # 18 Gm, Refills 5, Tot. Refills 5, Maintenance, :59:00 EDT, Aerosol, Route to Pharmacy Electronically, [id number], [id number] # [facility], 155.4, cm, 06/30/21 11:00:00 EDT, He... Start Date: 07/14/21 Status: Ordered Anoro Ellipta 62.5 mcg-25 mcg/inh inhalation powder 1 puffs, Inhalation, Daily, # 60 each, 11 Refills, Maintenance, 07/23/21 13:13:00 EDT, Powder, [facility] # [facility], Partial fill upon patient request if the prescription is for a schedule II opioid drug., 1 puffs Inhalation Daily, 155.4, cm, 06/30/21... Start Date: 07/23/21 Status: Ordered atorvastatin 10 mg oral tablet See Instructions, TAKE ONE TABLET BY MOUTH EVERY DAY, # 90 tablet, 1 Refills, Maintenance, 12/16/2213:28:00 EST, [facility] # [facility], 155.4, cm, 10/22/21 11:57:00 EST, Height Start Date: 12/16/21 Status: Ordered chlorthalidone 25 mg oral tablet 25 mg, 1, tablet, By Mouth, Daily, # 30 tablet, Refills 0, Tot. Refills 0, Maintenance, 01/14/22 8:44:00 EST, Route to Pharmacy Electronically, [facility] # [facility], Partial [...]
--- OUTSIDE RECORDS SUMMARY | 2023-07-25 08:06 | XMS_ITS | Continuity of Care Document ---
Author Name Unknown Organization [facility] Troy Ball Martinez lt Address [address] [place] [address]- Care Team Providers Care Windows System Admin Name Role Phone Ash MURPHY, Dory Mckeon Primary Care Physician Encounter [facility] [place] Date(s): 06/30/22 - 07/07/22 DIONISIO Ball Adult [address] [place] [address]- Encounter Diagnosis Medicare annual wellness visit, subsequent(Discharge Diagnosis) - 06/30/22 COPD without exacerbation(Discharge Diagnosis) - 06/30/22 Hyperlipidemia(Discharge Diagnosis) - 06/30/22 Hypertension(Discharge Diagnosis) - 06/30/22 Primary hyperparathyroidism(Discharge Diagnosis) - 06/30/22 Low back pain(Discharge Diagnosis) - 06/30/22 Attending Physician: Erich Hoskins MD Allergies, Adverse [...] 2Result Comment: [facility] Lot [id number] Medications albuterol CFC free 90 mcg/inh inhalation aerosol 2, puffs, Inhalation, Every 4 hours, PRN, # 18 Gm, Refills 5, Tot. Refills 5, Maintenance, 03/04/2210:37:00 EDT, Aerosol, Route to Pharmacy Electronically, [id number], [facility], 155.4, cm, 03/04/22 10:34:00 [...] 11 Refills, Maintenance, 03/04/22 10:37:00 EDT, Powder, [facility], Partial fill upon patient request if the prescription is for a schedule II opioid drug., 1 puffs Inhalation Daily, 155.4, cm, 03/04/22... Start Date: 03/04/22 Status: Ordered atorvastatin 10 mg oral tablet See Instructions, TAKE ONE TABLET BY MOUTH EVERY DAY, # 90 Unknown, 1 Refills, Maintenance, 06/23/22 16:31:00 EDT, [facility], 155.4, cm, 06/03/22 12:42:00 EDT, Height Start Date: 06/23/22 Status: Ordered [place] Saline Nasal Mist 4 times a day, [...] Obese class I(Confirmed) Active Osteoporosis(Confirmed) 08/28/15 Active Primary hyperparathyroidism(Confirmed) Active Diagnosis Diagnosis Type Effective Dates Health Status Clinical Service Informant Medicare annual wellness visit, subsequent Discharge Diagnosis 06/30/22 COPD without exacerbation Discharge Diagnosis 06/30/22 Hyperlipidemia Discharge Diagnosis 06/30/22 Hypertension Discharge Diagnosis 06/30/22 Primary hyperparathyroidism Discharge Diagnosis 06/30/22 Low back pain Discharge Diagnosis 06/30/22 Vital Signs Most recent to oldest [Reference Range]: 1 Height 155.4 cm (06/30/22 10:11 AM) Weight 75.8 kg (06/30/22 10:11 AM) Oxygen Saturation [94-100 %] 93 % *L* (06/30/22 10:11 AM) Pulse Rate [55-90 bpm] 102 bpm *H* (06/30/22 10:11 AM) Body Mass Index [18.5-24.99] 31.39 *>HHI* (06/30/22 10:11 AM) Blood Pressure [90-138/55-84 mm Hg] 130/ 80mm Hg (06/30/22 10:11 AM) Blood pressure sites Arm, left (06/30/22 10:11 AM) Temperature Route Temporal (06/30/22 10:11 AM) Weight Obtained Via Standing scale (06/30/22 10:11 AM) Social History Social History Type Response Smoking Status Former smoker, quit more than 30 days ago entered on: 06/21/19 Sex Care Team Personnel Name: Ash MURPHY, Dory Mckeon Address: [address] [place] [address], [place] [address]-
--- OUTSIDE RECORDS SUMMARY | 2023-07-25 08:06 | XMS_ITS | Continuity of Care Document ---
Author Name Unknown Organization [facility] Troy Ball Martinez lt Address [address] [place] [address]- Care Team Providers Care Education Analyst Name Role Phone Erich Hoskins MD Primary Care Physician [place] [facility] [place] Date(s): 07/08/20 - 07/15/20 [facility] Troy Bondsley Adult [address] [place] [address]- [facility] Encounter Diagnosis Hypertension(Discharge Diagnosis) - 07/08/20 Allergic rhinitis(Discharge Diagnosis) - 07/08/20 Dysequilibrium(Discharge Diagnosis) - 07/08/20 Serous otitis media(Discharge Diagnosis) - 07/08/20 Attending Physician: Erich Hoskins MD Allergies, Adverse [...] 06/26/20 10:45:00 EDT, Route to Pharmacy Electronically, [facility] # [facility], 155.4, cm, 12/28/19 10:37:00 EST,Height Start Date: 06/26/20 Status: Ordered atorvastatin 10 mg oral tablet 1 tablet = 10 mg, By Mouth, Daily, # 90 tablet, 3 Refills, Maintenance, 06/26/20 10:45:00 EDT, [facility] # [facility], 155.4, cm, 12/28/19 10:37:00 [...] tablet, 0 Refills, Maintenance, 07/10/20 9:30:00 EDT, [facility] # [facility],155.4, cm, 07/08/20 16:29:00 EDT, Height Start Date: 07/10/20 Status: Ordered Problem List Condition Effective Dates Status Health Status Inform ant Allergic rhinitis(Confirmed) Active Hypertension(Confirmed) Active Osteoporosis(Confirmed) 08/28/15 Active Diagnosis Diagnosis Type Effective Dates Health Status Clinical Service Informant Hypertension Discharge Diagnosis 07/08/20 Allergic rhinitis Discharge Diagnosis 07/08/20 Dysequilibrium Discharge Diagnosis 07/08/20 Serous otitis media Discharge Diagnosis 07/08/20 Vital Signs Most recent to oldest [Reference Range]: 1 Height 155.4 cm (07/08/20 4:29 PM) Weight 72.1 kg (07/08/20 4:29 PM) Oxygen Saturation [94-100 %] 96 % (07/08/20 4:29 PM) Pulse Rate [55-90 bpm] 72 bpm (07/08/20 4:29 PM) Body Mass Index [18.5-24.99] 29.86 *H* (07/08/20 4:29 PM) Blood Pressure [90-138/55-84 mm Hg] 144/ 72mm Hg *H* (07/08/20 4:29 PM) Temperature [96.8-100.4 DegF] 98.0 DegF (07/08/20 4:29 PM) Mode of Delivery (Oxygen) Room air (07/08/20 4:29 PM) Blood pressure sites Arm, left (07/08/20 4:29 PM) Temperature Route Oral (07/08/20 4:29 PM) Weight Obtained Via Standing scale (07/08/20 4:29 PM) Social History Social History Type Response Smoking Status Former smoker, quit more than 30 days ago entered on: 06/21/19 Sex
--- OUTSIDE RECORDS SUMMARY | 2023-07-25 08:06 | XMS_ITS | Continuity of Care Document ---
Author Name Unknown Organization [facility] Address [address] [address]- Care Team Providers Care Bridge Carpenter Name Role Phone Gato ANDERSON, Erich Barrera Primary Care Physician [phone] En[place] [facility] [place] Date(s): 06/10/21 - 07/10/21 [facility] [address] [address]- Attending Physician: AdmOleg worrell Admitting Physician: Admtr, Ar8 Referring Physician: Admtr, [...] 05/04/21 11:13:00 EDT, Route to Pharmacy Electronically, [facility] # [facility], Partial fill upon patient request if the prescription is for a schedule II... Start Date: 05/04/21 Status: Ordered aspirin 81 mg oral delayed release tablet 81 mg, 1, tablet, By Mouth, Daily, # 90 tablet, Refills 3, Tot. Refills 3, Maintenance, 06/26/20 10:45:00 EDT, Route to Pharmacy Electronically, [facility] # [facility], 155.4, cm, 12/28/19 10:37:00 EST,Height Start Date: 06/26/20 Status: Ordered atorvastatin 10 mg oral tablet 1 tablet = 10 mg, By Mouth, Daily, # 90 tablet, 1 Refills, Maintenance, 06/24/21 14:03:00 EDT, [facility] # [facility], 155.4, cm, 05/26/21 11:13:00 [...]
--- OUTSIDE RECORDS SUMMARY | 2023-07-25 08:06 | XMS_ITS | Continuity of Care Document ---
Author Name Unknown Organization [facility] Address [address] [place] [address]- Care Team Providers Care Plug Cutter Name Role Phone Ash MURPHY, Dory Mckeon Primary Care Physician [phone] [place] [facility] [place](s): 06/03/22 - 07/03/22 [facility] [address] [place] [id number] Attending Physician: Admtr, Ar8 Admitting [...] 2Result Comment: [facility] Lot [id number] Medications albuterol CFC free 90 mcg/inh inhalation aerosol 2, puffs, Inhalation, Every 4 hours, PRN, # 18 Gm, Refills 5, Tot. Refills 5, Maintenance, 03/04/2210:37:00 EDT, Aerosol, Route to Pharmacy Electronically, [id number], [facility] # [facility], 155.4, cm, 03/04/22 [...] 11 Refills, Maintenance, 03/04/22 10:37:00 EDT, Powder, [facility] # [facility], Partial fill upon patient request if the prescription is for a schedule II opioid drug., 1 puffs Inhalation Daily, 155.4, cm, 03/04/22... Start Date: 03/04/22 Status: Ordered atorvastatin 10 mg oral tablet See Instructions, TAKE ONE TABLET BY MOUTH EVERY DAY, # 90 Unknown, 1 Refills, Maintenance, 06/23/22 16:31:00 EDT, [facility] # [facility], 155.4, cm, 06/03/22 12:42:00 EDT, Height Start Date: 06/23/22 Status: Ordered [place] Saline Nasal Mist 4 times a day, [...] Gm, 5 Refills, Maintenance, 12/28/19 10:55:00 EST, [facility] # [facility], 2 sprays [...] Active Osteoporosis(Confirmed) 08/28/15 Active Primary hyperparathyroidism(Confirmed) Active Social History Social History Type Response Smoking Status Former smoker, quit more than 30 days ago entered on: 06/21/19 Sex Care Team Personnel Name: Dory Aleman NP Address: [address] [place] [address] [place], [place] [address]
--- OUTSIDE RECORDS SUMMARY | 2023-07-25 08:06 | XMS_ITS | Continuity of Care Document ---
Author Name Unknown Organization [facility] Address [address] [address]- Care Team Providers Care Process Development Engineer Name Role Phone Gtao ANDERSON, Erich Barrera Primary Care Physician [phone] [place] [facility] [place] 05/22/21 [facility] [address] [address]- Attending Physician: AdmOleg worrell Admitting Physician: Admtr, [...] 05/04/21 11:13:00 EDT, Route to Pharmacy Electronically, [facility] # [facility], Partial fill upon patient request if the prescription is for a schedule II... Start Date: 05/04/21 Status: Ordered aspirin 81 mg oral delayed release tablet 81 mg, 1, tablet, By Mouth, Daily, # 90 tablet, Refills 3, Tot. Refills 3, Maintenance, 06/26/20 10:45:00 EDT, Route to Pharmacy Electronically, [facility] # [facility], 155.4, cm, 12/28/19 10:37:00 EST,Height Start Date: 06/26/20 Status: Ordered atorvastatin 10 mg oral tablet 1 tablet = 10 mg, By Mouth, Daily, # 90 tablet, 3 Refills, Maintenance, 06/26/20 10:45:00 EDT, [facility] # [facility], 155.4, cm, 12/28/19 10:37:00 EST, Height Start Date: 06/26/20 Status: Ordered hydrochlorothiazide 25 mg oral tablet 25 mg, 1, tablet, By Mouth, Daily, # 90 tablet, Refills 3, Tot. Refills 3, Maintenance, 06/26/20 10:46:00 EDT, Route to Pharmacy Electronically, [facility] # [facility], 155.4, cm, 12/28/19 10:37:00 EST,Height Start Date: 06/26/20 Status: Ordered losartan 100 mg oral tablet 1 tablet = 100 mg, By Mouth, Daily, # 90 tablet, 3 Refills, Maintenance, 07/08/20 16:41:00 EDT, Tablet, [facility] # [facility], 155.4, cm, 07/08/20 16:29:00 [...]
--- OUTSIDE RECORDS SUMMARY | 2023-07-25 08:06 | XMS_ITS | Continuity of Care Document ---
Author Name Unknown Organization [facility] Address [address] [address]- Care Team Providers Care Director Of Curriculum Name Role Phone Gato ANDERSON, Erich Barrera Primary Care Physician En[place] [facility] [place] [facility] [id number] Date(s): 06/10/21 - 06/17/21 [facility] [address] [address]- Attending Physician: Latanya Arana MD Admitting Physician: Latanya Arana MD Referring Physician: Latanya Arana MD Allergies, Adverse Reactions, Alerts Substance Reaction [...] 05/04/21 11:13:00 EDT, Route to Pharmacy Electronically, [facility] # [facility], Partial fill upon patient request if the prescription is for a schedule II... Start Date: 05/04/21 Status: Ordered aspirin 81 mg oral delayed release tablet 81 mg, 1, tablet, By Mouth, Daily, # 90 tablet, Refills 3, Tot. Refills 3, Maintenance, 06/26/20 10:45:00 EDT, Route to Pharmacy Electronically, [facility] # [facility], 155.4, cm, 12/28/19 10:37:00 EST,Height Start Date: 06/26/20 Status: Ordered atorvastatin 10 mg oral tablet 1 tablet = 10 mg, By Mouth, Daily, # 90 tablet, 3 Refills, Maintenance, 06/26/20 10:45:00 EDT, [facility] # [facility], 155.4, cm, 12/28/19 10:37:00 EST, Height Start Date: 06/26/20 Status: Ordered hydrochlorothiazide 25 mg oral tablet 25 mg, 1, tablet, By Mouth, Daily, # 90 tablet, Refills 3, Tot. Refills 3, Maintenance, 06/26/20 10:46:00 EDT, Route to Pharmacy Electronically, [facility] # [facility], 155.4, cm, 12/28/19 10:37:00 EST,Height Start Date: 06/26/20 Status: Ordered losartan 100 mg oral tablet 1 tablet = 100 mg, By Mouth, Daily, # 90 tablet, 3 Refills, Maintenance, 07/08/20 16:41:00 EDT, Tablet, [facility] # [facility], 155.4, cm, 07/08/20 16:29:00 EDT, Height Start Date: 07/08/20 Status: Ordered Nasacort Allergy 24HR 55 mcg/inh nasal spray 2 sprays, Nares, Both, Daily, # 16.5 Gm, 5 Refills, Maintenance, 12/28/19 10:55:00 EST, [facility] # [facility], 2 sprays Nares, Both Daily, 155.4, cm, 12/28/19 10:37:00 EST, Height Start Date: 12/28/19 Status: Ordered Sitz bath Sitz bath, See Instructions, # 1 each, Refills 0, Tot. Refills 0, Maintenance, use 2-3x/day, 01/21/21 10:59:00 EDT, Supply Start Date: 01/21/21 Status: Ordered Problem List Condition Effective Dates Status Health Status Inform ant Allergic rhinitis(Confirmed) Active Hypertension(Confirmed) Active Lightheadedness(Confirmed) Active Osteoporosis(Confirmed) 08/28/15 Active Social History Social History Type Response Smoking Status Former smoker, quit more than 30 days ago entered on: 06/21/19 Sex
--- OUTSIDE RECORDS SUMMARY | 2023-07-25 08:06 | XMS_ITS | Continuity of Care Document ---
Author Name Unknown Organization [facility] Address [address] [place] [address]- Care Team Providers Care Stock Parts Fabricator Name Role Phone Ash MURPHY, Dory cMkeon Primary Care Physician Encounter 08/19/22 - 10/15/22 [facility] [address], [address] [place] [address]- Attending Physician: Monisha Hobbs MD Admitting Physician: [...] 2Result Comment: [facility] Lot [id number] Medications albuterol CFC free 90 mcg/inh inhalation aerosol 2, puffs, Inhalation, Every 4 hours, PRN, # 18 Gm, Refills 5, Tot. Refills 5, Maintenance, 03/04/2210:37:00 EDT, Aerosol, Route to Pharmacy Electronically, [id number], [facility] [...] EDT, Height Start Date: 06/23/22 Status: Ordered [place] Saline Nasal Mist 4 times a day, [...] Associate Professional Member Role: PCP Address: Address: [address] [place] [address]- Care Team Related Persons Name: LIBORIO BENNETT
--- OUTSIDE RECORDS SUMMARY | 2023-07-25 08:06 | XMS_ITS | Continuity of Care Document ---
Author Name Unknown Organization [facility] Address [address] [place] [address]- Care Team Providers Care Lmsw Name Role Phone Erich Hoskins MD Primary Care Physician [phone] [place] [facility] [place] Date(s): 05/27/21 - 06/26/21 [facility] [address] [place] [address]- Allergies, Adverse Reactions, Alerts Substance Reaction Severity [...] 05/04/21 11:13:00 EDT, Route to Pharmacy Electronically, [facility] # [facility], Partial fill upon patient [...]
--- OUTSIDE RECORDS SUMMARY | 2023-07-25 08:06 | XMS_ITS | Continuity of Care Document ---
Author Name Unknown Organization [facility] Address [address] [place] [address]- Care Team Providers Care Elastic Attacher Zigzag Name Role Phone Erich Hoskins MD Primary Care Physician En[facility] Date(s): 03/24/21 - 04/23/21 [facility] [address] [place], [place] [address] Attending Physician: AdmOleg worrell Admitting Physician: Admtr, Delmer8 Referring Physician: Admtr, Ar8 Allergies, Adverse Reactions, [...] 03/13/21 9:45:00 EDT, Route to Pharmacy Electronically, [facility] # [facility], Partial fill upon patient request if the prescription is for a schedule II o... Start Date: 03/13/21 Status: Ordered aspirin 81 mg oral delayed release tablet 81 mg, 1, tablet, By Mouth, Daily, # 90 tablet, Refills 3, Tot. Refills 3, Maintenance, 06/26/20 10:45:00 EDT, Route to Pharmacy Electronically, [facility] # [facility], 155.4, cm, 12/28/19 10:37:00 [...]
--- OUTSIDE RECORDS SUMMARY | 2023-07-25 08:06 | XMS_ITS | Continuity of Care Document ---
Author Name Unknown Organization [facility] Address [address] [place] [address]- Care Team Providers Care Cane Flume Chute Operator Name Role Phone Ash MURPHY, Dory Mckeon Primary Care Physician [phone] [place] [facility] [facility] [place] - 09/18/22 [facility] [address] [place] [id number] Allergies, Adverse Reactions, Alerts Substance Reaction Severity [...] Not Giv en Patient Refuses 1Result Comment: [employer] [facility] #2 2Result Comment: [facility] [place] [facility] #[facility] Lot [id number] Medications albuterol CFC free 90 mcg/inh inhalation aerosol 2, puffs, Inhalation, Every 4 hours, PRN, # 18 Gm, Refills 5, Tot. Refills 5, Maintenance, 03/04/2210:37:00 EDT, Aerosol, Route to Pharmacy Electronically, [id number], [facility] # [facility], 155.4, cm, 03/04/22 10:34:00 [...] Maintenance, 03/04/22 10:37:00 EDT, Powder, [facility] # [facility], Partial fill upon patient request if the prescription is for a schedule II opioid drug., 1 puffs Inhalation Daily, 155.4, cm, 03/04/22... Start Date: 03/04/22 Status: Ordered atorvastatin 10 mg oral tablet See Instructions, TAKE ONE TABLET BY MOUTH EVERY DAY, # 90 Unknown, 1 Refills, Maintenance, 06/23/22 16:31:00 EDT, [facility] # [facility], 155.4, cm, 06/03/22 12:42:00 EDT, Height Start Date: 06/23/22 Status: Ordered [place] Saline Nasal Mist 4 times a day, 0 Refills, Maintenance, 03/30/22 11:55:00 EDT, Partial fill upon patient request if the prescription is for a schedule II opioid drug. Start Date: 03/30/22 Status: Ordered chlorthalidone 25 mg oral tablet 1, tablet, By Mouth, Daily, # 30 tablet, Refills 5, Maintenance, 08/31/22 7:48:00 EDT, Route to Pharmacy Electronically, [facility] # [facility], 155.4, cm, 07/28/22 11:34:00 EDT, Height Start Date: 08/31/22 Status: Ordered Nasacort Allergy 24HR 55 mcg/inh nasal spray 2 sprays, Nares, Both, Daily, # 16.5 Gm, 5 Refills, Maintenance, 12/28/19 10:55:00 EST, [facility] # [facility], 2 sprays Nares, [...] Associate Professional Member Role: PCP Address: Address: [address] [place] [address]- Care Team Related Persons Name: LIBORIO BENNETT
--- OUTSIDE RECORDS SUMMARY | 2023-07-25 08:06 | XMS_ITS | Continuity of Care Document ---
Author Name Unknown Organization [facility] Rex Martinez lt Address [address] [place] [address]- Care Team Providers Care Diesel Engine Engineer Name Role Phone Erich Hoskins MD Primary Care Physician Encounter [facility] Date(s): 12/28/19 - 01/04/20 [facility] Adult [address] [place] [address]- [facility] Attending Physician: Erich Hoskins MD Allergies, Adverse [...] 3 Refills, Maintenance, 12/12/19 17:00:00 EST, Tablet, [facility] # [facility], 155.4, cm, 11/27/19 16:28:00 EST, Height Start Date: 12/12/19 Status: Ordered hydrochlorothiazide-losartan 12.5 mg-50 mg oral tablet 1 tablet, By Mouth, Daily, # 30 tablet, 11 Refills, Maintenance, 12/11/19 16:44:00 EST, Tablet, [facility] # [facility], 1 tablet By Mouth [...] smoker(Confirmed) Active Hypertension(Confirmed) Active Osteoporosis(Confirmed) 08/28/15 Active Vital Signs Most recent to oldest [Reference Range]: 1 Height 155.4 cm (12/28/19 10:37 AM) Weight 65.5 kg (12/28/19 10:37 AM) Oxygen Saturation [94-100 %] 98 % (12/28/19 10:37 AM) Pulse Rate [55-90 bpm] 94 bpm *H* (12/28/19 10:37 AM) Body Mass Index [18.5-24.99] 27.12 *H* (12/28/19 10:37 AM) Blood Pressure [90-138/55-84 mm Hg] 144/ 70mm Hg *H* (12/28/19 10:37 AM) Temperature [96.8-100.4 DegF] 98.0 DegF (12/28/19 10:37 AM) Mode of Delivery (Oxygen) Room air (12/28/19 10:37 AM) Blood pressure sites Arm, left (12/28/19 10:37 AM) Temperature Route Oral (12/28/19 10:37 AM) Weight Obtained Via Standing scale (12/28/19 10:37 AM) Social History Social History Type Response Smoking Status Former smoker, quit more than 30 days ago entered on: 06/21/19 Sex
--- OUTSIDE RECORDS SUMMARY | 2023-07-25 08:06 | XMS_ITS | Continuity of Care Document ---
Author Name Unknown Organization [facility] Address [address] [place] [address]- Care Team Providers Care Grief Counselor Name Role Phone Gato ANDERSON, Erich Barrera Primary Care Physician Encounter [facility] Date(s): 04/20/21 - 05/20/21 [facility] [address] [place] [address] Allergies, Adverse Reactions, Alerts Substance Reaction Severity [...] 05/04/21 11:13:00 EDT, Route to Pharmacy Electronically, [facility] # [facility], Partial fill upon patient request if the prescription is for a schedule II... Start Date: 05/04/21 Status: Ordered aspirin 81 mg oral delayed release tablet 81 mg, 1, tablet, By Mouth, Daily, # 90 tablet, Refills 3, Tot. Refills 3, Maintenance, 06/26/20 10:45:00 EDT, Route to Pharmacy Electronically, [facility] # [facility], 155.4, cm, 12/28/19 10:37:00 EST,Height Start Date: 06/26/20 Status: Ordered atorvastatin 10 mg oral tablet 1 tablet = 10 mg, By Mouth, Daily, # 90 tablet, 3 Refills, Maintenance, 06/26/20 10:45:00 EDT, [facility] # [...]
--- OUTSIDE RECORDS SUMMARY | 2023-07-25 08:06 | XMS_ITS | Continuity of Care Document ---
Author Name Unknown Organization [facility] Martinez lt Address [address] [place] [address]- Care Team Providers Care Print Inspector Name Role Phone Ash MURPHY, Dory Mckeon Primary Care Physician Encounter [facility] Date(s): 10/06/22 - 11/05/22 [facility] Adult [address] [place] [address]- Allergies, Adverse Reactions, Alerts Substance Reaction Severity [...] Not Giv en Patient Refuses 1Result Comment: [employer] [facility] #2 2Result Comment: [employer] #[facility] Lot [id number] Medications albuterol CFC free 90 mcg/inh inhalation aerosol 2, puffs, Inhalation, Every 4 hours, PRN, # 18 Gm, Refills 5, Tot. Refills 5, Maintenance, 03/04/2210:37:00 EDT, Aerosol, Route to Pharmacy Electronically, [id number], [facility] # [facility], 155.4, cm, 03/04/22 10:34:00 [...] EDT, Height Start Date: 06/23/22 Status: Ordered [place] Saline Nasal Mist 4 times a day, [...] Associate Professional Member Role: PCP Address: Address: [address] [place] [address]- Care Team Related Persons Name: LIBORIO BENNETT
--- OUTSIDE RECORDS SUMMARY | 2023-07-25 08:06 | XMS_ITS | Continuity of Care Document ---
Author Name Unknown Organization [facility] Troy Goodman Martinez lt Address [address] [place] [address]- Care Team Providers Care Veneer Slicing Machine Operator Name Role Phone Erich Hoskins MD Primary Care Physician Encounter [facility] Date(s): 05/15/21 - 06/14/21 DIONISIO Goodman Adult [address] [place] [address]- Allergies, Adverse Reactions, Alerts Substance Reaction Severity [...] 05/04/21 11:13:00 EDT, Route to Pharmacy Electronically, [facility] # [facility], Partial fill upon patient request if the prescription is for a schedule II... Start Date: 05/04/21 Status: Ordered aspirin 81 mg oral delayed release tablet 81 mg, 1, tablet, By Mouth, Daily, # 90 tablet, Refills 3, Tot. Refills 3, Maintenance, 06/26/20 10:45:00 EDT, Route to Pharmacy Electronically, [facility] # [facility], 155.4, cm, 12/28/19 10:37:00 EST,Height Start Date: 06/26/20 Status: Ordered atorvastatin 10 mg oral tablet 1 tablet = 10 mg, By Mouth, Daily, # 90 tablet, 3 Refills, Maintenance, 06/26/20 10:45:00 EDT, [facility] # 50, 155.4, cm, 12/28/19 10:37:00 EST, Height Start Date: 06/26/20 Status: Ordered hydrochlorothiazide 25 mg oral tablet 25 mg, 1, tablet, By Mouth, Daily, # 90 tablet, Refills 3, Tot. Refills 3, Maintenance, 06/26/20 10:46:00 EDT, Route to Pharmacy Electronically, [facility] # 50, 155.4, cm, 12/28/19 10:37:00 EST,Height Start Date: 06/26/20 Status: Ordered losartan 100 mg oral tablet 1 tablet = 100 mg, By Mouth, Daily, # 90 tablet, 3 Refills, Maintenance, 07/08/20 16:41:00 EDT, Tablet, [facility] # 50, 155.4, cm, 07/08/20 16:29:00 EDT, Height Start Date: 07/08/20 Status: Ordered Nasacort Allergy 24HR 55 mcg/inh nasal spray 2 sprays, Nares, Both, Daily, # 16.5 Gm, 5 Refills, Maintenance, 12/28/19 10:55:00 EST, [facility] # 50, 2 sprays [...]
--- OUTSIDE RECORDS SUMMARY | 2023-07-25 08:06 | XMS_ITS | Continuity of Care Document ---
Author Name Unknown Organization [facility] Martinez lt Address [address] [place] [address]- Care Team Providers Care Product Distribution Specialist Name Role Phone Ash MURPHY, Dory Mckeon Primary Care Physician [phone] Encounter [facility] Date(s): 03/29/22 - 04/05/22 [facility] Adult [address] [place] [address]- Attending Physician: Angella ANDERSON, Roger Browne Allergies, Adverse [...] Not Giv en Patient Refuses 1Result Comment: [employer] [facility] Lot [id number] Medications albuterol CFC free 90 mcg/inh inhalation aerosol 2, puffs, Inhalation, Every 4 hours, PRN, # 18 Gm, Refills 5, Tot. Refills 5, Maintenance, 03/04/2210:37:00 EDT, Aerosol, Route to Pharmacy Electronically, [id number], [facility] # [facility], 155.4, cm, 03/04/22 10:34:00 [...] 03/04/22 10:37:00 EDT, Powder, [facility], Partial fill upon patient request if the prescription is for a schedule II opioid drug., 1 puffs Inhalation Daily, 155.4, cm, 03/04/22... Start Date: 03/04/22 Status: Ordered atorvastatin 10 mg oral tablet See Instructions, TAKE ONE TABLET BY MOUTH EVERY DAY, # 90 tablet, 1 Refills, Maintenance, 12/16/2213:28:00 EST, [facility] # [facility], 155.4, cm, 10/22/21 11:57:00 EST, Height Start Date: 12/16/21 Status: Ordered [place] Saline Nasal Mist 4 times a [...] [Reference Range]: 1 2 Height 155.4 cm (03/29/22 3:10 PM) 155.4 cm (03/29/22 3:05 PM) Weight 75.7 kg (03/29/22 3:05 PM) Oxygen Saturation [94-100 %] 95 % (03/29/22 3:05 PM) Pulse Rate [55-90 bpm] 88 bpm (03/29/22 3:05 PM) Body Mass Index [18.5-24.99] 31.35 *>HHI* (03/29/22 3:05 PM) Blood Pressure [90-138/55-84 mm Hg] 139/ 82mm Hg *H* (03/29/22 3:10 PM) 142/81mm Hg *H* (03/29/22 3:05 PM) Mode of Delivery (Oxygen) Room air (03/29/22 3:05 PM) Blood pressure sites Arm, left (03/29/22 3:10 PM) Arm, left (03/29/22 3:05 PM) Social History Social History Type Response Smoking Status Former smoker, quit more than 30 days ago entered on: 06/21/19 Sex
--- OUTSIDE RECORDS SUMMARY | 2023-07-25 08:06 | XMS_ITS | Continuity of Care Document ---
Author Name Unknown Organization [facility] Rex Martinez lt Address [address] [place] [address]- Care Team Providers Care Eeler Name Role Phone Erich Hoskins MD Primary Care Physician [phone] Encounter [facility] Date(s): 04/16/21 - 04/23/21 [facility] Troy Bondsley Adult [address] [place] [address]- Attending Physician: Not on Staff, Attending MD [...] 03/13/21 9:45:00 EDT, Route to Pharmacy Electronically, [facility] # [facility], Partial fill upon patient request if the prescription is for a schedule II o... Start Date: 03/13/21 Status: Ordered aspirin 81 mg oral delayed release tablet 81 mg, 1, tablet, By Mouth, Daily, # 90 tablet, Refills 3, Tot. Refills 3, Maintenance, 06/26/20 10:45:00 EDT, Route to Pharmacy Electronically, [facility] # [facility], 155.4, cm, 12/28/19 10:37:00 EST,Height Start Date: 06/26/20 Status: Ordered atorvastatin 10 mg oral tablet 1 tablet = 10 mg, By Mouth, Daily, # 90 tablet, 3 Refills, Maintenance, 06/26/20 10:45:00 EDT, [facility] # [facility], [...] oldest [Reference Range]: 1 Height 155.4 cm (04/16/21 2:58 PM) Weight 75.1 kg (04/16/21 2:58 PM) Oxygen Saturation [94-100 %] 98 % (04/16/21 2:58 PM) Pulse Rate [55-90 bpm] 86 bpm (04/16/21 2:58 PM) Body Mass Index [18.5-24.99] 31.1 *>HHI* (04/16/21 2:58 PM) Blood Pressure [90-138/55-84 mm Hg] 136/ 62mm Hg (04/16/21 2:58 PM) Temperature [96.8-100.4 DegF] 97.7 DegF (04/16/21 2:58 PM) Blood pressure sites Arm, right (04/16/21 2:58 PM) Temperature Route Oral (04/16/21 2:58 PM) Weight Obtained Via Standing scale (04/16/21 2:58 PM) Social History Social History Type Response Smoking Status Former smoker, quit more than 30 days ago entered on: 06/21/19 Sex
--- OUTSIDE RECORDS SUMMARY | 2023-07-25 08:06 | XMS_ITS | Continuity of Care Document ---
Author Name Unknown Organization [facility] Troy Goodman Martinez lt Address [address] [place] [address]- Care Team Providers Care Visual Coordinator Name Role Phone Erich Hoskins MD Primary Care Physician Encounter [facility] Date(s): 05/15/21 - 06/14/21 DIONISIO Goodman Adult [address] [place] [address]- Allergies, Adverse Reactions, Alerts Substance Reaction Severity [...] 05/04/21 11:13:00 EDT, Route to Pharmacy Electronically, [facility] # [facility], Partial fill upon patient [...]
--- OUTSIDE RECORDS SUMMARY | 2023-07-25 08:06 | XMS_ITS | Continuity of Care Document ---
Author Name Unknown Organization [facility] Address [address] [address]- Care Team Providers Care Rn Acute Name Role Phone Ash MURPHY, Dory Mckeon Primary Care Physician Encounter [facility] Date(s): 06/02/23 - 07/02/23 [facility] [address] [place] [id number] Attending Physician: Admtr, Ar8 Admitting Physician: Admtr, [...] Recorded diphtheria/tetanus/pertussis, acel(DTaP) 11/07/10 Recorded 1Result Comment: [employer] [facility] #2 2Result Comment: [employer] [facility] Lot [id number] Medications albuterol CFC free 90 mcg/inh inhalation aerosol 2, puffs, Inhalation, Every 4 hours, PRN, # 18 Gm, Refills 5, Tot. Refills 5, Maintenance, 03/04/2210:37:00 EDT, Aerosol, Route to Pharmacy Electronically, [id number], [facility] # [facility], 155.4, [...] EDT, Height Start Date: 06/14/23 Status: Ordered [place] Saline Nasal Mist 4 times a day, [...] Active Hypertension Confirmed Active Lightheadedness Confirmed Active Osteoporosis Confirmed 08/28/15 Active Primary hyperparathyroidism Confirmed Active Social History Social History Type Response Smoking Status Former smoker, quit more than 30 days ago entered on: 06/21/19 Sex Patient Care team information Care Team Personnel Name: Ash MURPHY, Dory Mckeon Position: [facility] Associate Professional Member Role: PCP Address: Address: [address] [place] [address]- Care Team Related Persons Name: LIBORIO BENNETT
--- OUTSIDE RECORDS SUMMARY | 2023-07-25 08:06 | XMS_ITS | Continuity of Care Document ---
Author Name Unknown Organization [facility] Address [address] [address]- Care Team Providers Care Dust Collector Ore Crushing Name Role Phone Gato ANDERSON, Erich Barrera Primary Care Physician Encounter [facility] Date(s): 03/20/21 - 05/22/21 [place] [id number] [address]- Attending Physician: Zoe Gracia NP Admitting Physician: [...] 05/04/21 11:13:00 EDT, Route to Pharmacy Electronically, [facility] # [facility], Partial fill upon patient request if the prescription is for a schedule II... Start Date: 05/04/21 Status: Ordered aspirin 81 mg oral delayed release tablet 81 mg, 1, tablet, By Mouth, Daily, # 90 tablet, Refills 3, Tot. Refills 3, Maintenance, 06/26/20 10:45:00 EDT, Route to Pharmacy Electronically, [facility] # 50, 155.4, cm, 12/28/19 10:37:00 EST,Height Start Date: 06/26/20 Status: Ordered atorvastatin 10 mg oral tablet 1 tablet = 10 mg, By Mouth, Daily, # 90 tablet, 3 Refills, Maintenance, 06/26/20 10:45:00 EDT, [facility] # 50, 155.4, [...]
--- OUTSIDE RECORDS SUMMARY | 2023-07-25 08:06 | XMS_ITS | Continuity of Care Document ---
Author Name Unknown Organization [facility] Rex Martinez lt Address [address] [place] [address]- Care Team Providers Care Seismometer Operator Name Role Phone Erich Hoskins MD Primary Care Physician [phone] Encounter [facility] Date(s): 01/29/21 - 02/28/21 [facility] Troy Bondsley Adult [address] [place] [address]- Allergies, Adverse Reactions, Alerts Substance Reaction Severity [...]
--- OUTSIDE RECORDS SUMMARY | 2023-07-25 08:06 | XMS_ITS | Continuity of Care Document ---
Author Name Unknown Organization [facility] Troy Ball Martinez lt Address [address] [place] [address]- Care Team Providers Care Relations Coordinator Name Role Phone Ash MURPHY, Dory Mckeon Primary Care Physician [phone] Encounter [facility] Date(s): 01/15/22 - 02/14/22 D[facility]ISIO Ball Adult [address] [place] [address]- Allergies, Adverse Reactions, Alerts Substance Reaction Severity [...] Not Giv en Patient Refuses 1Result Comment: [employer] [facility] #50 Lot [id number] Medications albuterol CFC free 90 mcg/inh inhalation aerosol 2, puffs, Inhalation, Every 4 hours, PRN, # 18 Gm, Refills 5, Tot. Refills 5, Maintenance, :59:00 EDT, Aerosol, Route to Pharmacy Electronically, [id number], [facility] # 50, 155.4, cm, 06/30/21 11:00:00 EDT, He... Start Date: 07/14/21 Status: Ordered Anoro Ellipta 62.5 mcg-25 mcg/inh inhalation powder 1 puffs, Inhalation, Daily, # 60 each, 11 Refills, Maintenance, 07/23/21 13:13:00 EDT, Powder, [facility] # [facility], Partial fill upon patient request if the prescription is for a schedule II opioid drug., 1 puffs Inhalation Daily, 155.4, cm, 06/30/21... Start Date: 07/23/21 Status: Ordered atorvastatin 10 mg oral tablet See Instructions, TAKE ONE TABLET BY MOUTH EVERY DAY, # 90 tablet, 1 Refills, Maintenance, 12/16/2213:28:00 EST, [facility] # [facility], 155.4, cm, 10/22/21 11:57:00 EST, Height Start Date: 12/16/21 Status: Ordered carvedilol 3.125 mg oral tablet 3.125 mg, 1, tablet, By Mouth, 2 times a day, # 60 tablet, Refills 0, Tot. Refills 0, Maintenance, 02/05/22 15:29:00 EDT, Route to Pharmacy Electronically, [facility] # [facility], Partial fill upon patient request if the prescription is for a schedule II... Start Date: 02/05/22 Status: Ordered Nasacort Allergy 24HR 55 mcg/inh nasal spray 2 sprays, Nares, Both, Daily, # 16.5 Gm, 5 Refills, Maintenance, 12/28/19 10:55:00 EST, [facility] # [facility], 2 sprays Nares, [...]
--- NOTE | 2023-07-25 08:33 | P.CONAN_ITS ---
HPI - Anesthesia Eval Consult details Narrative: 78 F for right cataract extraction [facility] Past Medical History Medical History Arthritis Back pain Osteoporosis Elevated cholesterol COPD (chronic obstructive pulmonary disease) Hypertension Asthma Functional capacity: independent ambulation Family History Family history of problems with anesthesia: No Surgical History Surgical History Hx of tonsillectomy H/O colonoscopy History of Problems with Anesthesia: No Social History Social History (Updated 07/20/23 @ 09:39 by Lilian Meyer RN) Are you a primary healthcare management to a significant other at home: No Do you presently have visiting nurse or other home services: No Patient Tobacco Use Status: Former Tobacco user Quit Date: 2017 Tobacco use type: Cigarette Use of substances other than those prescribed or required for medical reasons: No Have you been hit, kicked, punched, or otherwise hurt by someone within the past year? If so, by whom?: No Are you DNR?: No Advance Directives on File: No Recently lost weight without trying: No Eating poorly because of decreased appetite: No Nutrition Risks: Surgical patient >75years Poor oral hygiene: No (missing teeth (pulled)) Meds Allergies Allergy/AdvReac Type Severity Reaction Status Date / Time amoxicillin Allergy Intermediate rash/nausea Verified 07/25/23 08:33 losartan Allergy Intermediate Shortness Verified 07/25/23 08:33 of Breath Penicillins Allergy Intermediate Rash/nausea Verified 07/25/23 08:33 Sulfa (Sulfonamide Allergy Intermediate Rash Verified 07/25/23 08:33 Antibiotics) Active Medications: Current Medications Cyclopentolate HCl (Cyclopentolate 1 % Ophth Teresa 2 Ml Drpbtl) 1 drop EYE-RIGHT Q5M MELANIA Stop: 07/25/23 08:41 Ketorolac Tromethamine (Ketorolac Tromethamine 0.5% Op 5 Ml Drops) 1 drop EYE- RIGHT Q5M MELANIA Stop: 07/25/23 08:41 Phenylephrine HCl (Phenylephrine Hcl 2.5% Oph Teresa 2 Ml Bottle) 1 drop EYE-RIGHT Q5M MELANIA Stop: 07/25/23 08:41 Povidone Iodine (Povidone Iodine 5 % Ophth Soln 30 Ml Bottle) 1 appl EYE-RIGHT PREOP PRN PRN Reason: Pre-Op Surgical Implant Prophy Tropicamide (Tropicamide 1 % Ophth Teresa 3 Ml Btl) 1 drop EYE-RIGHT Q5M MELANIA Stop: 07/25/23 08:41 Home Medications Medication Instructions Recorded Confirmed Last Taken Type albuterol sulfate 90 mcg/actuation 2 puff inhalation Q4H PRN 07/20/23 07/20/23 Unknown History aerosol inhaler Shortness Of Breath Or Wheezing atorvastatin 10 mg tablet 10 mg PO DAILY 07/20/23 07/20/23 Unknown History chlorthalidone 25 mg tablet 25 mg PO DAILY 07/20/23 07/20/23 Unknown History fexofenadine 180 mg tablet 180 mg PO DAILY 07/20/23 07/20/23 Unknown History triamcinolone acetonide 55 mcg 2 spray intranasal DAILY 07/20/23 07/20/23 07/25/23 History nasal spray aerosol (Nasacort Allergy) umeclidinium 62.5 mcg-vilanterol 1 ea inhalation DAILY 07/20/23 07/20/23 07/25/23 History 25 mcg/actuation powdr for inhalation (Anoro Ellipta) Exam Exam Date and Time: July 25, 2023 0833 Height,Weight and Vital Signs: Height 5 ft 1 in Weight 73 kg Airway Mallampati Class: III Loose/Missing/Broken Teeth: Yes Assessment and Plan Assessment Anesthesia Assessment: Anesthesia Plan Discussed and Chart Reviewed Final Anesthetic Review Family History of Problems with Anesthesia: No History of Problems with Anesthesia: No NPO: Yes ASA Class: II Final Preanesthetic Review: Meds/Allgs Chart Reviewed, Consent Obtained/Reviewed and Anes Risks/Benef Reviewed Patient Risk: Intermediate Procedure Risk: Intermediate Anesthetic Plan Anesthetic Plan: MAC: Disposition: Standard PACU
[2023-07-25 08:35] VITALS: BP 167/92; PULSE 92; RESP 15; TEMP 36.9; O2SAT 98
[2023-07-25] MEDS: Tetracaine HCl/PF 0.5% Oph Sol 4 ML DROPS 1 DROP EYE-RIGHT (08:39)
[2023-07-25] MEDS: Cyclopentolate 1 % Ophth Sol 2 ML DRPBTL 1 DROP EYE-RIGHT ×3 (08:41→08:56)
[2023-07-25] MEDS: Tropicamide 1 % Ophth Sol 3 ML BTL 1 DROP EYE-RIGHT ×3 (08:43→08:57)
[2023-07-25] MEDS: Ketorolac Tromethamine 0.5% Op 5 ML DROPS 1 DROP EYE-RIGHT ×3 (08:44→08:58)
[2023-07-25] MEDS: Phenylephrine HCL 2.5% Oph SoL 2 ML BOTTLE 1 DROP EYE-RIGHT ×3 (08:46→09:01)
--- NOTE | 2023-07-25 09:00 | HO.PNOPHT ---
Ophthalmology Procedure Procedure Date of Service: 07/25/23 Ophthalmology Viscoelastic: Healhaley Duet Dual Pack Pro Ophthalmology Lenses: TECNIS [id number] (22.5) Procedure Notes: PREOPERATIVE DIAGNOSIS: Decreased visual acuity right eye secondary to cataract POSTOPERATIVE DIAGNOSIS: Same PROCEDURE: Right cataract extraction with intraocular lens insertion SURGEON: Lenard Scanlon M.D. ANESTHESIA: Topical/MAC ESTIMATED BLOOD LOSS: None COMPLICATIONS: None After obtaining informed consent, the patient was brought to the operating room suite and placed in the supine position. After adequate sedation per anesthesia, topical drops of Tetracaine were given to the right eye. The eye was then prepped and draped in the usual sterile fashion. The operating room microscope was then positioned over the operative eye and a lid speculum placed. A paracentesis was created. Viscoelastic was then instilled into the anterior chamber. A three plane incision was then created temporally, utilizing a 2.85 mm keratome. Capsulotomy forceps were then utilized to create a circular tear capsulotomy. Hydrodissection and hydrodelineation were carried out until adequate mobilization of the nucleus occurred. Phacoemulsification was then utilized to remove the dense central nucleus followed by removal of the cortical material utilizing the automated aspiration irrigation unit. Viscoelastic was instilled into the posterior capsular bag followed by placement of a posterior chamber intraocular lens without difficulty. The residual Viscoelastic was then removed utilizing the automated IA machine. The wound was checked and found to be watertight. The patient tolerated the procedure well and the lid speculum was removed. Intracameral injection of Vigamox 0.1 mL followed by a subtenon injection of Kenalog-40 0.2 mL were administered. The patient will be seen in the a.m.
[2023-07-25 09:53] VITALS: BP 159/85; PULSE 90; RESP 16; TEMP 36.6; O2SAT 99
== END 2023-07-25 10:10 | disposition home or self-care (01) ==
PROVIDERS: PCP Nurse Practitioner Family; Visit Provider Ophthalmology
PROC: (CPT 66985; principal; 2023-07-25 09:40)
DX: H25.11 Age-related nuclear cataract, right eye (principal); H54.7 Unspecified visual loss; I10 Essential (primary) hypertension; E78.5 Hyperlipidemia, unspecified; J44.9 Chronic obstructive pulmonary disease, unspecified; Z87.891 Personal history of nicotine dependence
CPT/HCPCS: 66984; J2250; J3010; J3301; V2632

== ENCOUNTER 2023-08-08 07:21 | Day surgery (SDC) | payer MEDICARE, SELFPAY ==
[2023-07-20 09:45] VITALS: BMI 30.4
[2023-07-20 14:32] VITALS: BMI 30.4
--- NOTE | 2023-08-05 07:45 | MHC.SHP ---
Pre-Procedural Eval Section A Date of Service: 08/05/23 The patient is an INPATIENT: No Changes since office visit: No Cold of Flu in the past 2 weeks, No New Medical Problems, No Changes in Medication and No Patient answered all questions The History & Physical has been completed within 30 days and I have reviewed it.: Yes Section B Chief Complaint: Age-related nuclear cataract, left eye Allergies: Allergies Allergy/AdvReac Type Severity Reaction Status Date / Time amoxicillin Allergy Intermediate rash/nausea Verified 07/25/23 08:33 losartan Allergy Intermediate Shortness Verified 07/25/23 08:33 of Breath Penicillins Allergy Intermediate Rash/nausea Verified 07/25/23 08:33 Sulfa (Sulfonamide Allergy Intermediate Rash Verified 07/25/23 08:33 Antibiotics) Plan Diagnosis/Plan: Unchanged I have reviewed the history and physical and performed a pertinent physical examination on my patient. No changes have occurred unless specified. Time Spent With Patient Time: Total time managing care of this patient today ____ minutes.
--- NOTE | 2023-08-05 10:47 | HO.ANESPROP2 ---
Documented by User: Oneyda Clark NP 08/05/23 10:48 HPI - Anesthesia Eval Consult details Narrative: 78yo F for Left Cataract Extraction IOL Insertion PCP cleared Right eye 07/25/23: Fent 50, Midaz 1, Glyco 0.2 PMFSH Past Medical History Medical History Arthritis Back pain Osteoporosis Elevated cholesterol COPD (chronic obstructive pulmonary disease) Hypertension Asthma Family History Family history of problems with anesthesia: No Surgical History Surgical History Hx of tonsillectomy H/O colonoscopy History of Problems with Anesthesia: No Social History Social History (Updated 07/20/23 @ 09:39 by Lilian Meyer RN) Are you a primary home care administrator to a significant other at home: No Do you presently have visiting nurse or other home services: No Patient Tobacco Use Status: Former Tobacco user Quit Date: 2017 Tobacco use type: Cigarette Use of substances other than those prescribed or required for medical reasons: No Have you been hit, kicked, punched, or otherwise hurt by someone within the past year? If so, by whom?: No Are you DNR?: No Advance Directives Information Provided: Yes (as above noted) Advance Directives on File: No Recently lost weight without trying: No Eating poorly because of decreased appetite: No Nutrition Risks: Surgical patient >75years Poor oral hygiene: No (missing teeth (pulled)) Meds Allergies Allergy/AdvReac Type Severity Reaction Status Date / Time amoxicillin Allergy Intermediate rash/nausea Verified 07/25/23 08:33 losartan Allergy Intermediate Shortness Verified 07/25/23 08:33 of Breath Penicillins Allergy Intermediate Rash/nausea Verified 07/25/23 08:33 Sulfa (Sulfonamide Allergy Intermediate Rash Verified 07/25/23 08:33 Antibiotics) Home Medications Medication Instructions Recorded Confirmed Last Taken Type albuterol sulfate 90 mcg/actuation 2 puff inhalation Q4H PRN 07/20/23 07/20/23 Unknown History aerosol inhaler Shortness Of Breath Or Wheezing atorvastatin 10 mg tablet 10 mg PO DAILY 07/20/23 07/20/23 Unknown History chlorthalidone 25 mg tablet 25 mg PO DAILY 07/20/23 07/20/23 Unknown History fexofenadine 180 mg tablet 180 mg PO DAILY 07/20/23 07/20/23 Unknown History triamcinolone acetonide 55 mcg 2 spray intranasal DAILY 07/20/23 07/20/23 07/25/23 History nasal spray aerosol (Nasacort Allergy) umeclidinium 62.5 mcg-vilanterol 1 ea inhalation DAILY 07/20/23 07/20/23 07/25/23 History 25 mcg/actuation powdr for inhalation (Anoro Ellipta) Exam Exam Date and Time: August 05, 2023 1047 Height,Weight and Vital Signs: Height 5 ft 1 in Weight 73 kg Assessment and Plan Assessment Anesthesia Assessment: Chart Reviewed Final Anesthetic Review Family History of Problems with Anesthesia: No History of Problems with Anesthesia: No Documented by User: Foreign Bell MD 08/08/23 07:20 [facility] Past Medical History Medical History Arthritis Back pain Osteoporosis Elevated cholesterol COPD (chronic obstructive pulmonary disease) Hypertension Asthma Surgical History Surgical History Hx of tonsillectomy H/O colonoscopy Social History Social History (Updated 07/20/23 @ 09:39 by Lilian Meyer RN) Are you a primary home care administrator to a significant other at home: No Do you presently have visiting nurse or other home services: No Patient Tobacco Use Status: Former Tobacco user Quit Date: 2017 Tobacco use type: Cigarette Use of substances other than those prescribed or required for medical reasons: No Have you been hit, kicked, punched, or otherwise hurt by someone within the past year? If so, by whom?: No Are you DNR?: No Advance Directives Information Provided: Yes (as above noted) Advance Directives on File: No Recently lost weight without trying: No Eating poorly because of decreased appetite: No Nutrition Risks: Surgical patient >75years Poor oral hygiene: No (missing teeth (pulled)) Meds Allergies Allergy/AdvReac Type Severity Reaction Status Date / Time amoxicillin Allergy Intermediate rash/nausea Verified 07/25/23 08:33 losartan Allergy Intermediate Shortness Verified 07/25/23 08:33 of Breath Penicillins Allergy Intermediate Rash/nausea Verified 07/25/23 08:33 Sulfa (Sulfonamide Allergy Intermediate Rash Verified 07/25/23 08:33 Antibiotics) Home Medications Medication Instructions Recorded Confirmed Last Taken Type albuterol sulfate 90 mcg/actuation 2 puff inhalation Q4H PRN 07/20/23 07/20/23 Unknown History aerosol inhaler Shortness Of Breath Or Wheezing atorvastatin 10 mg tablet 10 mg PO DAILY 07/20/23 07/20/23 Unknown History chlorthalidone 25 mg tablet 25 mg PO DAILY 07/20/23 07/20/23 Unknown History fexofenadine 180 mg tablet 180 mg PO DAILY 07/20/23 07/20/23 Unknown History triamcinolone acetonide 55 mcg 2 spray intranasal DAILY 07/20/23 07/20/23 07/25/23 History nasal spray aerosol (Nasacort Allergy) umeclidinium 62.5 mcg-vilanterol 1 ea inhalation DAILY 07/20/23 07/20/23 07/25/23 History 25 mcg/actuation powdr for inhalation (Anoro Ellipta) Exam Airway Mallampati Class: II TM Dist: >3cm Neck ROM: Full Loose/Missing/Broken Teeth: Yes Heart: [id number] Lungs: cta b/l Assessment and Plan Assessment Anesthesia Assessment: Anesthesia Plan Discussed Final Anesthetic Review NPO: Yes ASA Class: II Final Preanesthetic Review: No Changes in Pt Med Stat, Meds/Allgs Chart Reviewed, Consent Obtained/Reviewed and Anes Risks/Benef Reviewed Patient Risk: Low Procedure Risk: Low Assessment/Block/Sedation in SS: Assess/Block/Sedation-SS Anesthetic Plan Anesthetic Plan: MAC: and Agree w/ Assess. and Plan Disposition: Standard PACU
--- OUTSIDE RECORDS SUMMARY | 2023-08-08 07:25 | XMS_ITS | Continuity of Care Document ---
Author Name Unknown Organization [facility] Troy Ball Martinez lt Address [address] [place] [address]- Care Team Providers Care Patient Services Technician Name Role Phone Ash MURPHY, Dory Mckeon Primary Care Physician [phone] Encounter [facility] [place] [facility] [id number] Date(s): 07/20/23 - 07/27/23 [facility] Troy Ball Adult [address] [place] [address]- Encounter Diagnosis Medicare annual wellness visit, subsequent(Discharge Diagnosis) - 07/20/23 COPD without exacerbation(Discharge Diagnosis) - 07/20/23 Hypertension(Discharge Diagnosis) - 07/20/23 Hyperlipidemia(Discharge Diagnosis) - 07/20/23 Primary hyperparathyroidism(Discharge Diagnosis) - 07/20/23 Attending Physician: Dory Aleman NP Referring Physician: [...] 2Result Comment: [employer] [facility] Lot [id number] Medications albuterol CFC free 90 mcg/inh inhalation aerosol 2, puffs, Inhalation, Every 4 hours, PRN, # 18 Gm, Refills 5, Tot. Refills 5, Maintenance, 03/04/2210:37:00 EDT, Aerosol, Route to Pharmacy Electronically, [id number], [facility], 155.4, cm, 03/04/22 [...] each, 6 Refills, Maintenance, 06/02/23 17:03:00 EDT, Powder,[facility] # [facility], Partial fill upon patient request if the prescription is for a schedule II opioid drug., 1 puffs Inhalation Daily,Instr:j44.9, 155... Start Date: 06/02/23 Status: Ordered atorvastatin 10 mg oral tablet 1 tablet, By Mouth, Daily, # 90 tablet, 1 Refills, Maintenance, 06/14/23 15:31:00 EDT, [facility] # [facility], 155.4, cm, 06/02/23 10:49:00 EDT, Height Start Date: 06/14/23 Status: Ordered [place] Saline Nasal Mist 4 times a day, 0 Refills, Maintenance, 03/30/22 11:55:00 EDT, Partial fill upon patient request if the prescription is for a schedule II opioid drug. Start Date: 03/30/22 Status: Ordered chlorthalidone 25 mg oral tablet 1, tablet, By Mouth, Daily, # 30 tablet, Refills 5, Maintenance, 07/22/23 8:44:00 EDT, Route to Pharmacy Electronically, [facility] # [facility], 155.4, cm, 07/20/23 10:03:00 EDT, Height Start Date: 07/22/23 Status: Ordered Nasacort Allergy 24HR 55 mcg/inh [...] Medicare annual wellness visit, subsequent Discharge Diagnosis 07/20/23 COPD without exacerbation Discharge Diagnosis 07/20/23 Hypertension Discharge Diagnosis 07/20/23 Hyperlipidemia Discharge Diagnosis 07/20/23 Primary hyperparathyroidism Discharge Diagnosis 07/20/23 Vital Signs Most recent to oldest [Reference Range]: 1 Height 155.4 cm (07/20/23 10:03 AM) Weight 73.9 kg (07/20/23 10:03 AM) Oxygen Saturation [94-100 %] 99 % (07/20/23 10:03 AM) Pulse Rate [55-90 bpm] 100 bpm *H* (07/20/23 10:03 AM) Body Mass Index [18.5-24.99 kg/m2] 30.6 kg/m2 *>HHI* (07/20/23 10:03 AM) Blood Pressure [90-138/55-84 mm Hg] 130/ 76mm Hg (07/20/23 10:03 AM) Blood pressure sites Arm, left (07/20/23 10:03 AM) Weight Obtained Via Standing scale (07/20/23 10:03 AM) Social History Social History Type Response Smoking Status Former smoker, quit more than 30 days ago entered on: 06/21/19 Sex Patient Care team information Care Team Personnel Name: Dory Aleman NP Position: S PCO Associate Professional Member Role: PCP Address: Address: [address] [place] [id number] Care Team Related Persons Name: LIBORIO BENNETT
[2023-08-08 07:56] VITALS: BP 158/80; PULSE 80; RESP 16; TEMP 36.9; O2SAT 97
[2023-08-08] MEDS: Tetracaine HCl/PF 0.5% Oph Sol 4 ML DROPS 1 DROP EYE-LEFT (07:59)
[2023-08-08] MEDS: Lactated Ringers 500 ML 50 ML IV (07:59)
[2023-08-08] MEDS: Tropicamide 1 % Ophth Sol 3 ML BTL 1 DROP EYE-LEFT ×3 (08:01→08:09)
[2023-08-08] MEDS: Cyclopentolate 1 % Ophth Sol 2 ML DRPBTL 1 DROP EYE-LEFT ×3 (08:01→08:08)
[2023-08-08] MEDS: Ketorolac Tromethamine 0.5% Op 5 ML DROPS 1 DROP EYE-LEFT ×3 (08:01→08:10)
[2023-08-08] MEDS: Phenylephrine HCL 2.5% Oph SoL 2 ML BOTTLE 1 DROP EYE-LEFT ×3 (08:02→08:10)
--- NOTE | 2023-08-08 08:40 | HO.PNOPHT ---
Ophthalmology Procedure Procedure Date of Service: 08/08/23 Ophthalmology Viscoelastic: Healhaley Duet Dual Pack Pro Ophthalmology Lenses: TECNIS [id number] (21.5) Procedure Notes: PREOPERATIVE DIAGNOSIS: Decreased visual acuity left eye secondary to cataract POSTOPERATIVE DIAGNOSIS: Same PROCEDURE: Left cataract extraction with intraocular lens insertion SURGEON: Lenard Scanlon M.D. ANESTHESIA: Topical/MAC ESTIMATED BLOOD LOSS: None COMPLICATIONS: None After obtaining informed consent, the patient was brought to the operation room suite and placed in the supine position. After adequate sedation per anesthesia, topical drops of Tetracaine were given to the left eye. The eye was then prepped and draped in the usual sterile fashion. The operating room microscope was then positioned over the operative eye and a lid speculum placed. A paracentesis was created. Viscoelastic was then instilled into the anterior chamber. A three plane incision was then created temporally, utilizing a 2.85 mm keratome. Capsulotomy forceps were then utilized to create a circular tear capsulotomy. Hydrodissection and hydrodelineation were carried out until adequate mobilization of the nucleus occurred. Phacoemulsification was then utilized to remove the dense central nucleus followed by removal of the cortical material utilizing the automated aspiration irrigation unit. Viscoat elastic was instilled into the posterior capsular bag followed by placement of a posterior chamber intraocular lens without difficulty. The residual Viscoat elastic was then removed utilizing the automated IA machine. The wound was check and found to be watertight. The patient tolerated the procedure well and the lid speculum was removed. Intracameral injection of Vigamox 0.1 mL followed by a subtenon injection of Kenalog-40 0.2 mL were administered. The patient will be seen in the a.m.
[2023-08-08 09:06] VITALS: BP 167/78; PULSE 77; RESP 16; TEMP 36.8; O2SAT 95
== END 2023-08-08 09:21 | disposition home or self-care (01) ==
PROVIDERS: PCP Nurse Practitioner Family; Visit Provider Ophthalmology
PROC: (CPT 66985; principal; 2023-08-08 08:50)
DX: H25.12 Age-related nuclear cataract, left eye (principal); H54.7 Unspecified visual loss; I10 Essential (primary) hypertension; E78.00 Pure hypercholesterolemia, unspecified; J44.9 Chronic obstructive pulmonary disease, unspecified; E66.9 Obesity, unspecified; Z68.30 Body mass index [BMI] 30.0-30.9, adult; E21.0 Primary hyperparathyroidism; Z87.891 Personal history of nicotine dependence; Z79.899 Other long term (current) drug therapy
CPT/HCPCS: 66984; J2250; J3010; J3301; V2632

== ENCOUNTER 2024-05-23 11:33 | Inpatient (IN) | payer MEDICARE, SELFPAY ==
[2024-05-23] VITALS (11 sets, daily range): BP systolic 150–200; BP diastolic 69–90; PULSE 84–103; RESP 16–24; TEMP 36.3–36.4; O2SAT 89–97; BMI 30.7; BMI 30.2
--- NOTE | ~2024-05-23 | XR_ITS ---
EXAMINATION: XR CHEST CLINICAL INFORMATION: Shortness of breath COMPARISON: None available. TECHNIQUE: Frontal view of the chest was obtained. FINDINGS: Lungs are well-inflated and without evidence of acute disease. No edema, consolidation or pleural effusion. A linear opacity projecting over the right lung base could represent chronic bandlike scarring. Cardiac silhouette has normal size and contour. The pulmonary vascular pattern is normal. No acute osseous abnormality. XR/XR chest 1V IMPRESSION: No acute cardiopulmonary disease.
--- NOTE | 2024-05-23 11:53 | ECG_ITS ---
Test Reason : SOB Blood Pressure : / mmHG Vent. Rate : 097 BPM Atrial Rate : 097 BPM P-R Int : 172 ms QRS Dur : 064 ms QT Int : 306 ms P-R-T Axes : 071 086 007 degrees QTc Int : 388 ms Normal sinus rhythm with sinus arrhythmia Nonspecific ST abnormality Abnormal ECG No previous ECGs available Referred By: Generic ED Physician Electronically Signed By:BENNY FRENCH MD
--- OUTSIDE RECORDS SUMMARY | 2024-05-23 11:59 | XMS_ITS | Continuity of Care Document ---
Author Organization [facility] Lizzy Martinez lt Address [address] [place] [address]- Care Team Providers Care Inspector Tubes Name Role Phone Ash MURPHY, Dory Mckeon Primary Care Physician Encounter [facility] [place] Date(s): 12/09/23 - 01/08/24 [facility] Troy Bondsley Adult [address] [place] [address]- Allergies, Adverse Reactions, Alerts Substance Reaction Severity Status doxycycline n/v, rash Unknown Active losartan shortness of breath Active penicillins 1 Active sulfa drugs Rash Active amoxicillin rash Active 1rash Immunizations Given and Recorded Vaccine Date Status Refusal Reason SARS-CoV-2 (COVID-19) mRNA-1273 vaccine 1 04/27/22 Recorded SARS-CoV-2 (COVID-19) mRNA-1273 vaccine 2 09/25/21 Recorded SARS-CoV-2 (COVID-19) mRNA-1273 vaccine 01/17/21 R ecorded SARS-CoV-2 (COVID-19) mRNA-1273 vaccine 12/18/20 R ecorded pneumococcal 23-valent vaccine 11/07/11 Recorded diphtheria/tetanus/pertussis, acel(DTaP) 11/07/10 Recorded 1Result Comment: [employer] #2 2Result Comment: [employer] [facility] Lot [id number] Medications albuterol CFC free 90 mcg/inh inhalation aerosol 2, puffs, Inhalation, Every 4 hours, PRN, # 18 Gm, Refills 5, Tot. Refills 5, Maintenance, 03/04/2210:37:00 EDT, Aerosol, Route to Pharmacy Electronically, [id number], [facility] # [facility], 155.4, cm, 03/04/22 10:34:00 [...] each, 6 Refills, Maintenance, 06/02/23 17:03:00 EDT, Powder,[facility] # [facility], Partial fill upon patient request if the prescription is for a schedule II opioid drug., 1 puffs Inhalation Daily,Instr:j44.9, 155... Start Date: 06/02/23 Status: Ordered atorvastatin 10 mg oral tablet See Instructions, TAKE ONE TABLET BY MOUTH EVERY DAY, # 90 Unknown, 1 Refills, Maintenance, 12/09/23 21:07:00 EST, [facility] # [facility], 155.4, cm, 12/07/23 14:31:00 EST, Height, 75, kg, 12/07/23 14:31:00 EST, Dry Weight Start Date: 12/09/23 Status: Ordered [place] Saline Nasal Mist 4 times a day, 0 Refills, Maintenance, 03/30/22 11:55:00 EDT, Partial fill upon patient request if the prescription is for a schedule II opioid drug. Start Date: 03/30/22 Status: Ordered calcium and vitamin D combination 315 mg-200 iu oral tablet 2 tablet, By Mouth, 2 times a day, # 120 tablet, 2 Refills, Maintenance, 12/22/23 13:02:00 EST, Tablet, [facility] # [facility], Partial fill upon patient request if the prescription is for a schedule IIopioid drug., 2 tablet By Mouth 2 times a day,x30 d... Start Date: 12/22/23 Stop Date: 03/21/24 Status: Ordered chlorthalidone 25 mg oral tablet 1, tablet, By Mouth, Daily, # 30 tablet, Refills 5, Maintenance, 07/22/23 8:44:00 EDT, Route to Pharmacy Electronically, [facility] # [facility], 155.4, cm, 09/13/23 10:03:00 EDT, Height Start Date: 07/22/23 Status: [...] Former smoker, quit more than 30 days ago; Other: quit in 2018; entered on: 12/07/23 Sex Patient Care team information Care Team Personnel Name: Ash MURPHY, Dory Mckeon Position: S PCO Associate Professional Member Role: PCP Address: Address: [address] [place] [id number]- Care Team Related Persons Name: LIBORIO BENNETT
--- OUTSIDE RECORDS SUMMARY | 2024-05-23 11:59 | XMS_ITS | Continuity of Care Document ---
Author Organization [facility] Address [address] [place] [address]- Care Team Providers Care Curing Room Worker Name Role Phone Ash MURPHY, Dory Mckeon Primary Care Physician [phone] [place] [facility] [place]24 [facility] [address] [place] [id number] Allergies, Adverse Reactions, Alerts Substance Reaction Severity Status doxycycline n/v, rash Unknown Active amoxicillin rash Active losartan shortness of breath Active penicillins 1 Active sulfa drugs Rash Active 1rash Immunizations Given and Recorded Vaccine Date Status Refusal Reason SARS-CoV-2 (COVID-19) mRNA-1273 vaccine 1 04/27/22 Recorded SARS-CoV-2 (COVID-19) mRNA-1273 vaccine 2 09/25/21 Recorded SARS-CoV-2 (COVID-19) mRNA-1273 vaccine 01/17/21 R ecorded SARS-CoV-2 (COVID-19) mRNA-1273 vaccine 12/18/20 R ecorded pneumococcal 23-valent vaccine 11/07/11 Recorded diphtheria/tetanus/pertussis, acel(DTaP) 11/07/10 Recorded 1Result Comment: [employer] #2 2Result Comment: [employer] [facility] Lot [id number] Medications albuterol CFC free 90 mcg/inh inhalation aerosol 2, puffs, Inhalation, Every 4 hours, PRN, # 18 Gm, Refills 5, Tot. Refills 5, Maintenance, 03/04/2210:37:00 EDT, Aerosol, Route to Pharmacy Electronically, [id number], [facility] # [facility], 155.4, cm, 03/04/22 10:34:00 EDT, H... Start Date: 03/04/22 Status: Ordered Christine By Mouth, 0 Refills, Maintenance, 03/30/22 11:54:00 EDT, Partial fill upon patient request if the prescription is for a schedule II opioid drug. Start Date: 03/30/22 Status: Ordered Anoro Ellipta 62.5 mcg-25 mcg/inh inhalation powder 1 puffs, Inhalation, Daily, j44.9, # 1 each, 6 Refills, Maintenance, 01/13/24 14:36:00 EST, Powder,[facility], Partial fill upon patient request if the prescription is for a schedule II opioid drug., 1 puffs Inhalation Daily,Instr:j44.9, 155... Start Date: 01/13/24 Status: Ordered atorvastatin 10 mg oral tablet See Instructions, TAKE ONE TABLET BY MOUTH EVERY DAY, # 90 Unknown, 1 Refills, Maintenance, 12/09/23 21:07:00 EST, [facility] # [facility], 155.4, cm, 12/07/23 14:31:00 EST, Height, 75, kg, 12/07/23 14:31:00 EST, Dry Weight Start Date: 12/09/23 Status: Ordered [place] Saline Nasal Mist 4 times a day, 0 Refills, Maintenance, 03/30/22 11:55:00 EDT, Partial fill upon patient request if the prescription is for a schedule II opioid drug. Start Date: 03/30/22 Status: Ordered calcium and vitamin D combination 315 mg-200 iu oral tablet 2 tablet, By Mouth, 2 times a day, # 120 tablet, 2 Refills, Maintenance, 12/22/23 13:02:00 EST, Tablet, [facility] # [facility], Partial fill upon patient request if the prescription is for a schedule IIopioid drug., 2 tablet By Mouth 2 times a day,x30 d... Start Date: 12/22/23 Stop Date: 03/21/24 Status: Ordered chlorthalidone 25 mg oral tablet 1, tablet, By Mouth, Daily, # 30 tablet, Refills 5, Tot. Refills 5, Maintenance, 01/18/24 11:14:00 EDT, Route to Pharmacy Electronically, [facility], 155.4, cm, 01/18/24 11:01:00 EDT, Height, 73.8, kg, 12/22/23 8:30:00 EST, Dry Weight Start Date: 01/18/24 Status: Ordered Nasacort Allergy 24HR 55 mcg/inh [...] Associate Professional Member Role: PCP Address: Address: [address] [place] [id number]- Care Team Related Persons Name: LIBORIO BENNETT
--- OUTSIDE RECORDS SUMMARY | 2024-05-23 11:59 | XMS_ITS | Continuity of Care Document ---
Author Organization [facility] Address [address] [place] [address] [address] [place] [address]- Care Team Providers Care Finishing Machine Operator Automatic Name Role Phone Ash MURPHY, Dory Mckeon Primary Care Physician [phone] Encounter [facility] Date(s): 12/27/23 - 01/26/[address] [place], [place] [address] Allergies, Adverse Reactions, Alerts Substance Reaction Severity [...] Recorded diphtheria/tetanus/pertussis, acel(DTaP) 11/07/10 Recorded 1Result Comment: [employer] #2 2Result Comment: [employer] [facility]50 Lot [id number] Medications albuterol CFC free 90 mcg/inh inhalation aerosol 2, puffs, Inhalation, Every 4 hours, PRN, # 18 Gm, Refills 5, Tot. Refills 5, Maintenance, 03/04/2210:37:00 EDT, Aerosol, Route to Pharmacy Electronically, [id number], [facility] # [facility], 155.4, cm, 03/04/22 10:34:00 [...] each, 6 Refills, Maintenance, 01/13/24 14:36:00 EST, Powder,[facility] # [facility], Partial fill upon patient request if the prescription is for a schedule II opioid drug., 1 puffs Inhalation Daily,Instr:j44.9, 155... Start Date: 01/13/24 Status: Ordered atorvastatin 10 mg oral tablet See Instructions, TAKE ONE TABLET BY MOUTH EVERY DAY, # 90 Unknown, 1 Refills, Maintenance, 12/09/23 21:07:00 EST, [facility] # [facility], 155.4, cm, 12/07/23 14:31:00 EST, Height, 75, kg, 12/07/23 14:31:00 EST, Dry Weight Start Date: 12/09/23 Status: Ordered [place] Saline Nasal Mist 4 times a day, 0 Refills, Maintenance, 03/30/22 11:55:00 EDT, Partial fill upon patient request if the prescription is for a schedule II opioid drug. Start Date: 03/30/22 Status: Ordered calcium and vitamin D combination 315 mg-200 iu oral tablet 2 tablet, By Mouth, 2 times a day, # 120 tablet, 2 Refills, Maintenance, 12/22/23 13:02:00 EST, Tablet, [facility] # [facility], Partial fill upon patient request if the prescription is for a schedule IIopioid drug., 2 tablet By Mouth 2 times a day,x30 d... Start Date: 12/22/23 Stop Date: 03/21/24 Status: Ordered chlorthalidone 25 mg oral tablet 1, tablet, By Mouth, Daily, # 30 tablet, Refills 5, Tot. Refills 5, Maintenance, 01/18/24 11:14:00 EDT, Route to Pharmacy Electronically, [facility] # [facility], 155.4, cm, 01/18/24 11:01:00 [...] Professional Member Role: PCP Address: Address: [address] [place] [address]- Care Team Related Persons Name: LIBORIO BENNETT
--- OUTSIDE RECORDS SUMMARY | 2024-05-23 12:00 | XMS_ITS | Continuity of Care Document ---
Author Organization [facility] Troy Goodman Martinez lt Address [address] [place] [address]- Care Team Providers Care Filler Block Inserter Remover Name Role Phone Ash MURPHY, Dory Mckeon Primary Care Physician Encounter [facility] Date(s): 01/18/24 - 01/25/24 DIONISIO Goodman Adult [address] [place] [address]- Encounter Diagnosis COPD without exacerbation(Discharge Diagnosis) - 01/18/24 Hypertension(Discharge Diagnosis) - 01/18/24 Hyperlipidemia(Discharge Diagnosis) - 01/18/24 Primary hyperparathyroidism(Discharge Diagnosis) - 01/18/24 Dizziness(Discharge Diagnosis) - 01/19/24 Attending Physician: Ash MURPHY, Dory Mckeon Referring Physician: Roger Perales MD Allergies, Adverse [...] 2Result Comment: [employer] [facility] Lot [id number] Medications albuterol CFC free 90 mcg/inh inhalation aerosol 2, puffs, Inhalation, Every 4 hours, PRN, # 18 Gm, Refills 5, Tot. Refills 5, Maintenance, 03/04/2210:37:00 EDT, Aerosol, Route to Pharmacy Electronically, [id number], [facility], [...] each, 6 Refills, Maintenance, 01/13/24 14:36:00 EST, Powder,[facility] # [facility], Partial fill upon patient request if the prescription is for a schedule II opioid drug., 1 puffs Inhalation Daily,Instr:j44.9, 155... Start Date: 01/13/24 Status: Ordered atorvastatin 10 mg oral tablet See Instructions, TAKE ONE TABLET BY MOUTH EVERY DAY, # 90 Unknown, 1 Refills, Maintenance, 12/09/23 21:07:00 EST, [facility] # [facility], 155.4, cm, 12/07/23 14:31:00 EST, Height, 75, kg, 12/07/23 14:31:00 EST, Dry Weight Start Date: 12/09/23 Status: Ordered [place] Saline Nasal Mist 4 times a day, 0 Refills, Maintenance, 03/30/22 11:55:00 EDT, Partial fill upon patient request if the prescription is for a schedule II opioid drug. Start Date: 03/30/22 Status: Ordered calcium and vitamin D combination 315 mg-200 iu oral tablet 2 tablet, By Mouth, 2 times a day, # 120 tablet, 2 Refills, Maintenance, 12/22/23 13:02:00 EST, Tablet, [facility] # [facility], Partial fill upon patient request if the prescription is for a schedule IIopioid drug., 2 tablet By Mouth 2 times a day,x30 d... Start Date: 12/22/23 Stop Date: 03/21/24 Status: Ordered chlorthalidone 25 mg oral tablet 1, tablet, By Mouth, Daily, # 30 tablet, Refills 5, Tot. Refills 5, Maintenance, 01/18/24 11:14:00 EDT, [facility] to [facility] Electronically, [facility] Service Informant COPD without exacerbation Discharge Diagnosis 01/18/24 Hypertension Discharge Diagnosis 01/18/24 Hyperlipidemia Discharge Diagnosis 01/18/24 Primary hyperparathyroidism Discharge Diagnosis 01/18/24 Dizziness Discharge Diagnosis 01/19/24 Vital Signs Most recent to oldest [Reference Range]: 1 2 3 Height 155.4 cm (01/18/24 11:17 AM) 155.4 cm (01/18/24 11:01 AM) 155.4 cm (01/18/24 10:47 AM) Weight 72.8 kg (01/18/24 10:47 AM) Oxygen Saturation [94-100 %] 95 % (01/18/24 10:47 AM) Pulse Rate [55-90 bpm] 87 bpm (01/18/24 10:47 AM) Body Mass Index [18.5-24.99 kg/m2] 30.15 kg/m2 *>HHI* (01/18/24 10:47 AM) Blood Pressure [90-138/55-84 mm Hg] 139/79mm Hg *H* (01/18/24 11:17 AM) 152/81mm Hg *H* (01/18/24 11:01 AM) 148/77mm Hg *H* (01/18/24 10:47 AM) Blood pressure sites Arm, left (01/18/24 11:01 AM) Arm, left (01/18/24 10:47 AM) Weight Obtained Via Standing scale (01/18/24 10:47 AM) Social History Social History Type Response Smoking Status Former smoker, quit more than 30 days ago; Other: quit in 2018; entered on: 12/07/23 Sex Note * Mirtha Mendez: PERFORM, SIGN, VERIFY Event Display: Patient Education/Instruction Authored Date: [id number] [facility] *BMP So Lizzy Reyes Clinical Summary Name HERBIE ROMAN Age 78 Years 1945 PCP Ash MURPHY, Dory Mckeon PCP Visit Date 01/18/2024 10:42:00 Additional Instructions: Scheduled Appointments?? Future Appointments ?*[facility] [address] ?[place],??[place],??[address] ?Phone:??--?Fax:??-- ?Appt. Date:??04/10/2024?11:10 AM ?Scheduled Provider:??Consuelo ANDERSONLuis Armando ?*[facility] ?[address]??[place],??[place],??[address] ?Phone:??--?Fax:??-- ?Appt. Date:??04/16/2024?4:00 PM ?Scheduled Provider:??Shaikh JUSTIN, Roya Follow-Up Instructions ?? With: Address: When: Ash MURPHY, Dory Mckeon [address] [place] [address] In 6 months Comments: awv Diagnosis Essential (primary) hypertension; Hyperlipidemia, unspecified; Primary hyperparathyroidism; Chronicobstructive pulmonary disease, unspecified Medications: Please continue your medications until treatment is completed or stopped by your provider. Discuss any questions related to medications with your provider. Medications to Continue with No Changes [facility], [address], [place] [id number], [phone] Chlorthalidone (chlorthalidone 25 mg oral tablet) 1 tab(s) Oral Daily. Refills: 5. Next Dose: These medications were not printed or sent to your pharmacy Albuterol (albuterol CFC free 90 mcg/inh inhalation aerosol) 2 puff(s) Inhalation every 4 hours as needed Shortness of breath. Refills: 5. Next Dose: Atorvastatin (atorvastatin 10 mg oral tablet) TAKE ONE TABLET BY MOUTH EVERY DAY. Refills: 1. Next Dose: Calcium And Vitamin D Combination (calcium and vitamin D combination 315 mg-200 iu oral tablet) 2 tab(s) Oral twice a day for 30 Days. Refills: 2. Next Dose: Durable Medical Equipment (Sitz bath) use 2-3x/day. Refills: 0. Next Dose: Fexofenadine (Christine) Oral. Next Dose: Sodium Chloride Nasal ([place] Saline Nasal Mist) 4 times a day. Next Dose: Triamcinolone Nasal (Nasacort Allergy 24HR 55 mcg/inh nasal spray) 2 spray(s) Nares, Both Daily. Refills: 5. Next Dose: umeclidinium-vilanterol (Anoro Ellipta 62.5 mcg-25 mcg/inh inhalation powder) 1 puff(s) Inhalation Daily. j44.9. Refills: 6. Next Dose: No Longer Take the Following Medications Calcium Carbonate (Tums Ultra 1000 mg oral tablet, chewable) 2 tab(s) 4 times a day. Allergy Info:?? sulfa drugs; penicillins; losartan; amoxicillin; doxycycline Medications Given This Visit Future Orders ?No future orders Future Orders ?No future orders Vital Signs Height 155.4 cm Weight 72.8 kg BMI 30.15 kg/m2 Blood Pressure 139 mm Hg/79 mm Hg Temperature Pulse Rate 87 bpm Respiratory Rate 02 Sat Mode of Delivery 95 %/ You can now view a summary of your hospital visit from the comfort of your home through a free online portal called [facility] Note. Kids Note is a website that allows you to securely view your medical information including discharge summary, medications and follow-up visits. ??You can alsosend a secure electronic message to your doctor???s office to request appointments, renew medications or just ask a question. You can enroll at [email or web address] or register during your next office visit. [...] primary care provider, you may find a [facility] provider by calling [facility] at [phone]. [facility], in keeping with [facility] guidance, no longer requires face masks for staff, patientsor visitors in most situations. Similar to time spent indoors at other locations, there is the chance that you were exposed to respiratory viruses during your time with us (such as flu or COVID-19).? If you develop symptoms concerning for a viral respiratory infection, please seek testing (and treatment if indicated) from your medical provider or home test kit. For information about the plan of care [...] Personnel Name: Ash MURPHY, Dory Mckeon Position: [facility] PCO Associate Professional Member Role: PCP Address: Address: [address] [place] [address]- Care Team Related Persons Name: LIBORIO BENNETT
--- OUTSIDE RECORDS SUMMARY | 2024-05-23 12:00 | XMS_ITS | Continuity of Care Document ---
Author Organization [facility] Address [address] [place] [address]- Care Team Providers Care Bulb Filler Name Role Phone Ash MURPHY, Dory Mckeon Primary Care Physician Encounter [facility] ACCT R [id number] Date(s): 11/10/23 - 01/02/[address] [address]- Encounter Diagnosis Pain in left knee(Final) - Discharge Disposition: A-D/C Home Attending Physician: Dory Aleman NP Admitting Physician: Ash MURPHY, Dory Mckeon Referring Physician: Crow Loya Allergies, Adverse Reactions, Alerts Substance Reaction Severity [...] 2Result Comment: [facility] [employer] [facility] Lot [id number] Medications albuterol CFC free 90 mcg/inh inhalation aerosol 2, puffs, Inhalation, Every 4 hours, PRN, # 18 Gm, Refills 5, Tot. Refills 5, Maintenance, 03/04/2210:37:00 EDT, Aerosol, Route to Pharmacy Electronically, [id number], [facility], 155.4, cm, [...] each, 6 Refills, Maintenance, 06/02/23 17:03:00 EDT, Powder,[facility] # [facility], Partial fill upon patient request if the prescription is for a schedule II opioid drug., 1 puffs Inhalation Daily,Instr:j44.9, 155... Start Date: 06/02/23 Status: Ordered atorvastatin 10 mg oral tablet See Instructions, TAKE ONE TABLET BY MOUTH EVERY DAY, # 90 Unknown, 1 Refills, Maintenance, 12/09/23 21:07:00 EST, [facility] # [facility], 155.4, cm, 12/07/23 14:31:00 EST, Height, 75, kg, 12/07/23 14:31:00 EST, Dry Weight Start Date: 12/09/23 Status: Ordered [place] Saline Nasal Mist 4 times a day, 0 Refills, Maintenance, 03/30/22 11:55:00 EDT, Partial fill upon patient request if the prescription is for a schedule II opioid drug. Start Date: 03/30/22 Status: Ordered calcium and vitamin D combination 315 mg-200 iu oral tablet 2 tablet, By Mouth, 2 times a day, # 120 tablet, 2 Refills, Maintenance, 12/22/23 13:02:00 EST, Tablet, [facility] # [facility], Partial fill upon patient request if the prescription is for a schedule IIopioid drug., 2 tablet By Mouth 2 times a day,x30 d... Start Date: 12/22/23 Stop Date: 03/21/24 Status: Ordered chlorthalidone 25 mg oral tablet 1, tablet, By Mouth, Daily, # 30 tablet, Refills 5, Maintenance, 07/22/23 8:44:00 EDT, Route to Pharmacy Electronically, [facility], 155.4, cm, 07/20/23 10:03:00 [...] Associate Professional Member Role: PCP Address: Address: [address] [place] [address]- Care Team Related Persons Name: LIBORIO BENNETT
--- OUTSIDE RECORDS SUMMARY | 2024-05-23 12:00 | XMS_ITS | Continuity of Care Document ---
Author Organization [facility] Address [address] [place] [address] [address] [place] [address]- Care Team Providers Care Seed Potato Cutter Name Role Phone Ash MURPHY, Dory Mckeon Primary Care Physician [phone] Encounter [facility] ACCT R [id number] Date(s): 10/18/23 - 10/25/[address] [place] [address]- Attending Physician: Consuelo ANDERSON, Luis Armando Referring Physician: Shaikh JUSTIN, Roya Allergies, Adverse Reactions, Alerts Substance Reaction Severity Status doxycycline Unknown Active amoxicillin Active losartan shortness of breath Active penicillins 1 Active sulfa drugs Rash Active 1rash Immunizations Given and Recorded Vaccine Date Status Refusal Reason SARS-CoV-2 (COVID-19) mRNA-1273 vaccine 1 04/27/22 Recorded SARS-CoV-2 (COVID-19) mRNA-1273 vaccine 2 09/25/21 Recorded SARS-CoV-2 (COVID-19) mRNA-1273 vaccine 01/17/21 R ecorded SARS-CoV-2 (COVID-19) mRNA-1273 vaccine 12/18/20 R ecorded pneumococcal 23-valent vaccine 11/07/11 Recorded diphtheria/tetanus/pertussis, acel(DTaP) 11/07/10 Recorded 1Result Comment: [employer] Booster #2 2Result Comment: [employer] [facility] #50 Lot [id number] Medications albuterol CFC free 90 mcg/inh inhalation aerosol 2, puffs, Inhalation, Every 4 hours, PRN, # 18 Gm, Refills 5, Tot. Refills 5, Maintenance, 03/04/2210:37:00 EDT, Aerosol, Route to Pharmacy Electronically, [id number], [facility], 155.4, cm, 03/04/22 10:34:00 [...] each, 6 Refills, Maintenance, 06/02/23 17:03:00 EDT, Powder,[facility] # [facility], Partial fill upon patient request if the prescription is for a schedule II opioid drug., 1 puffs Inhalation Daily,Instr:j44.9, 155... Start Date: 06/02/23 Status: Ordered atorvastatin 10 mg oral tablet 1 tablet, By Mouth, Daily, # 90 tablet, 1 Refills, Maintenance, 06/14/23 15:31:00 EDT, [facility], 155.4, cm, 06/02/23 10:49:00 EDT, Height Start Date: 06/14/23 Status: Ordered [place] Saline Nasal Mist 4 times a day, 0 Refills, Maintenance, 03/30/22 11:55:00 EDT, Partial fill upon patient request if the prescription is for a schedule II opioid drug. Start Date: 03/30/22 Status: Ordered chlorthalidone 25 mg oral tablet 1, tablet, By Mouth, Daily, # 30 tablet, Refills 5, Maintenance, 07/22/23 8:44:00 EDT, Route to Pharmacy Electronically, [facility], 155.4, cm, 07/20/23 [...] Confirmed 08/28/15 Active Primary hyperparathyroidism Confirmed Active Vital Signs Most recent to oldest [Reference Range]: 1 Height 155.4 cm (10/18/23 3:07 PM) Weight 74.5 kg (10/18/23 3:07 PM) Pulse Rate [55-90 bpm] 90 bpm (10/18/23 3:07 PM) Body Mass Index [18.5-24.99 kg/m2] 30.85 kg/m2 *>HHI* (10/18/23 3:07 PM) Blood Pressure [90-138/55-84 mm Hg] 177/ 75mm Hg *H* (10/18/23 3:07 PM) Temperature [96.8-100.4 DegF] 96.5 DegF *L* (10/18/23 3:07 PM) Blood pressure sites Arm, left (10/18/23 3:07 PM) Temperature Route Temporal (10/18/23 3:07 PM) Social History Social History Type Response Smoking Status Former smoker, quit more than 30 days ago entered on: 06/21/19 Sex Patient Care team information Care Team Personnel Name: Ash MURPHY, Dory Mckeon Position: S PCO Associate Professional Member Role: PCP Address: Address: [address] [place] [address]- Care Team Related Persons Name: LIBORIO BENNETT
--- OUTSIDE RECORDS SUMMARY | 2024-05-23 12:00 | XMS_ITS | Continuity of Care Document ---
Author Organization [facility] Address [address] [place] [address] [address] [place] [address]- Care Team Providers Care Central Processing Tech Name Role Phone Ash MURPHY, Dory Mckeon Primary Care Physician Encounter [facility] Date(s): 03/15/24 - 04/14/[address] [place], [place] [address] Allergies, Adverse Reactions, Alerts Substance Reaction [...] Recorded diphtheria/tetanus/pertussis, acel(DTaP) 11/07/10 Recorded 1Result Comment: [employer] Booster #2 2Result Comment: [employer] [facility] Lot [id number] Medications albuterol CFC free 90 mcg/inh inhalation aerosol 2, puffs, Inhalation, Every 4 hours, PRN, # 18 Gm, Refills 5, Tot. Refills 5, Maintenance, 03/04/2210:37:00 EDT, Aerosol, Route to Pharmacy Electronically, [id number], [facility], 155.4, cm, 03/04/22 10:34:00 [...] each, 6 Refills, Maintenance, 01/13/24 14:36:00 EST, Powder,[facility], Partial fill upon patient request if the prescription is for a schedule II opioid drug., 1 puffs Inhalation Daily,Instr:j44.9, 155... Start Date: 01/13/24 Status: Ordered atorvastatin 10 mg oral tablet See Instructions, TAKE ONE TABLET BY MOUTH EVERY DAY, # 90 Unknown, 1 Refills, Maintenance, 12/09/23 21:07:00 EST, [facility] # [facility], 155.4, cm, 12/07/23 14:31:00 EST, Height, 75, kg, 12/07/23 14:31:00 EST, Dry Weight Start Date: 12/09/23 Status: Ordered [place] Saline Nasal Mist 4 times a day, 0 Refills, Maintenance, 03/30/22 11:55:00 EDT, Partial fill upon patient request if the prescription is for a schedule II opioid drug. Start Date: 03/30/22 Status: Ordered calcium and vitamin D combination 315 mg-200 iu oral tablet 2 tablet, By Mouth, 2 times a day, # 120 tablet, 2 Refills, Maintenance, 12/22/23 13:02:00 EST, Tablet, [facility] # [...] 01/18/24 11:14:00 EDT, Route to Pharmacy Electronically, [facility], 155.4, cm, [...] Professional Member Role: PCP Address: Address: [address] [place] [address]- Care Team Related Persons Name: LIBORIO BENNETT
--- OUTSIDE RECORDS SUMMARY | 2024-05-23 12:00 | XMS_ITS | Continuity of Care Document ---
Author Organization [facility] Address [address] [place] [address]- Care Team Providers Care Virtualization Consultant Name Role Phone Ash MURPHY, Dory Mckeon Primary Care Physician Encounter [facility] [place] R [id number] Date(s): 12/07/23 - 12/14/23 [facility] [address] [place] [address] Attending Physician: Gato ANDERSON, Erich Barrera Referring Physician: Luis Armando Cordero MD Allergies, Adverse Reactions, Alerts Substance Reaction [...] Recorded diphtheria/tetanus/pertussis, acel(DTaP) 11/07/10 Recorded 1Result Comment: [email or web address] Booster #2 2Result Comment: [employer] [facility] #50 Lot [id number] Medications albuterol CFC free 90 mcg/inh inhalation aerosol 2, puffs, Inhalation, Every 4 hours, PRN, # 18 Gm, Refills 5, Tot. Refills 5, Maintenance, 03/04/2210:37:00 EDT, Aerosol, Route to Pharmacy Electronically, [id number], [facility], 155.4, cm, 03/04/22 10:34:00 [...] Dry Weight Start Date: 12/09/23 Status: Ordered [place] Saline Nasal Mist 4 times a day, [facility] 155.4, cm, 07/20/23 10:03:00 [...] oldest [Reference Range]: 1 Height 155.4 cm (12/07/23 2:31 PM) Weight 75.0 kg (12/07/23 2:31 PM) Oxygen Saturation [94-100 %] 97 % (12/07/23 2:31 PM) Pulse Rate [55-90 bpm] 92 bpm *H* (12/07/23 2:31 PM) Body Mass Index [18.5-24.99 kg/m2] 31.06 kg/m2 *>HHI* (12/07/23 2:31 PM) Blood Pressure [90-138/55-84 mm Hg] 155/ 69mm Hg *H* (12/07/23 2:31 PM) Respiratory Rate [16-30 br/min] 16 br/mi n (12/07/23 2:31 PM) Mode of Delivery (Oxygen) Room air (12/07/23 2:31 PM) Blood pressure sites Arm, right (12/07/23 2:31 PM) Dry Weight 75.0 kg (12/07/23 2:31 PM) Weight Obtained Via Standing scale (12/07/23 2:31 PM) Dry Weight Obtained Via Standing scale (12/07/23 2:31 PM) Social History Social History Type Response Smoking Status Former smoker, quit more than 30 days ago; Other: quit in 2018; entered on: 12/07/23 Sex EKG study * Event Display: ECG 12-Lead Authored Date: Please click on pdf link to open report * Event Display: ECG 12-Lead Authored Date: Ventricular Rate: 79 BPM Atrial Rate: 79 BPM P-R Interval: 200 ms QRS Duration: 78 ms Q-T Interval: 342 ms QTC Calculation(Bazett): 392 ms P Broaddus: 60 degrees R Broaddus: 75 degrees T Broaddus: 41 degrees Normal sinus rhythm Normal ECG When compared with ECG of 26-MAY-2021 11:21, Premature atrial complexes are no longer Present Minimal criteria for Septal infarct are no longer Present Confirmed by VIANCA ARROYO MD ([id number]) on 12/08/2023 9:40:20 AM Bowie: VIANCA ARROYO MD Patient Care team information Care Team Personnel Name: Ash MURPHY, Dory Mckeon Position: S PCO Associate Professional Member Role: PCP Address: Address: [address] [place] [address]- Care Team Related Persons Name: LIBORIO BENNETT
--- OUTSIDE RECORDS SUMMARY | 2024-05-23 12:00 | XMS_ITS | Continuity of Care Document ---
Author Organization [facility] Address [address] [place] [address] [address] [place] [address]- Care Team Providers Care Propulsion Engineer Name Role Phone Ash MURPHY, Dory Mckeon Primary Care Physician [phone] Encounter [facility] Date(s): 01/10/24 - 01/17/[address] [place], [place] [address] Attending Physician: Consuelo ANDERSON, Luis Armando Allergies, Adverse Reactions, Alerts Substance Reaction Severity [...] Recorded diphtheria/tetanus/pertussis, acel(DTaP) 11/07/10 Recorded 1Result Comment: [employer] Booster #2 2Result Comment: [employer] [facility] #50 Lot [id number] Medications albuterol CFC free 90 mcg/inh inhalation aerosol 2, puffs, Inhalation, Every 4 hours, PRN, # 18 Gm, Refills 5, Tot. Refills 5, Maintenance, 03/04/2210:37:00 EDT, Aerosol, Route to Pharmacy Electronically, [id number], [facility], 155.4, cm, 03/04/22 10:34:00 [...] each, 6 Refills, Maintenance, 01/13/24 14:36:00 EST, Powder,[facility], Partial fill upon patient request if the prescription is for a schedule II opioid drug., 1 puffs Inhalation Daily,Instr:j44.9, 155... Start Date: 01/13/24 Status: Ordered atorvastatin 10 mg oral tablet See Instructions, TAKE ONE TABLET BY MOUTH EVERY DAY, # 90 Unknown, 1 Refills, Maintenance, 12/09/23 21:07:00 EST, [facility], 155.4, cm, 12/07/23 14:31:00 EST, Height, 75, kg, 12/07/23 14:31:00 EST, Dry Weight Start Date: 12/09/23 Status: Ordered [place] Saline Nasal Mist 4 times a day, 0 Refills, Maintenance, 03/30/22 11:55:00 EDT, Partial fill upon patient request if the prescription is for a schedule II opioid drug. Start Date: 03/30/22 Status: Ordered calcium and vitamin D combination 315 mg-200 iu oral tablet 2 tablet, By Mouth, 2 times a day, # 120 tablet, 2 Refills, Maintenance, 12/22/23 13:02:00 EST, Tablet, [facility], Partial fill upon patient request if the prescription is for a schedule IIopioid drug., 2 tablet By Mouth 2 times a day,x30 d... Start Date: 12/22/23 Stop Date: 03/21/24 Status: Ordered chlorthalidone 25 mg oral tablet 1, tablet, By Mouth, Daily, # 30 tablet, Refills 5, Maintenance, 07/22/23 8:44:00 EDT, Route to Pharmacy Electronically, [facility], 155.4, cm, 07/20/23 10:03:00 [...] EDT, Supply Start Date: 01/21/21 Status: Ordered Tums Ultra 1000 mg oral tablet, chewable 2 tablet = 2,000 mg, 4 times a day, 0 Refills, Maintenance, 01/10/24 11:29:00 EST, Partial fill upon patient request if the prescription is for a schedule II opioid drug. Start Date: 01/10/24 Status: Ordered Problem List Condition Confirmation Course Effective Dates Status Health Status Informant Allergic rhinitis Confirmed Active COPD without exacerbation Confirmed Active Hyperlipidemia Confirmed Active Hypertension Confirmed Active Lightheadedness Confirmed Active Obese class I Confirmed Active Osteoporosis Confirmed 08/28/15 Active Primary hyperparathyroidism Confirmed Active Vital Signs Most recent to oldest [Reference Range]: 1 Height 155.4 cm (01/10/24 11:30 AM) Weight 73.1 kg (01/10/24 11:30 AM) Pulse Rate [55-90 bpm] 89 bpm (01/10/24 11:30 AM) Body Mass Index [18.5-24.99 kg/m2] 30.27 kg/m2 *>HHI* (01/10/24 11:30 AM) Blood Pressure [90-138/55-84 mm Hg] 148/ 78mm Hg *H* (01/10/24 11:30 AM) Temperature [96.8-100.4 DegF] 97.9 DegF (01/10/24 11:30 AM) Blood pressure sites Arm, left (01/10/24 11:30 AM) Temperature Route Temporal (01/10/24 11:30 AM) Weight Obtained Via Standing scale (01/10/24 11:30 AM) Social History Social History Type Response Smoking Status Former smoker, quit more than 30 days ago; Other: quit in 2018; entered on: 12/07/23 Sex Patient Care team information Care Team Personnel Name: Ash MURPHY, Dory Mckeon Position: S PCO Associate Professional Member Role: PCP Address: Address: [address] [place] [address]- Care Team Related Persons Name: LIBORIO BENNETT
--- OUTSIDE RECORDS SUMMARY | 2024-05-23 12:00 | XMS_ITS | Continuity of Care Document ---
Author Organization [facility] Address [address] [place] [address]- Care Team Providers Care Gang Tailer Name Role Phone Ash MURPHY, Dory Mckeon Primary Care Physician Encounter [facility] [place] [facility] [id number] Date(s): 12/07/23 - 01/06/24 [facility] [address], [place] [address] Attending Physician: AdmtrOleg Admitting Physician: Admtr, Ar8 Referring Physician: Admtr, [...] 2Result Comment: [employer] store #50 Lot [id number] Medications albuterol CFC free 90 mcg/inh inhalation aerosol 2, puffs, Inhalation, Every 4 hours, PRN, # 18 Gm, Refills 5, Tot. Refills 5, Maintenance, 03/04/2210:37:00 EDT, Aerosol, Route to Pharmacy Electronically, [id number], [facility] # [facility], [...] each, 6 Refills, Maintenance, 06/02/23 17:03:00 EDT, Powder,[facility] # [facility], Partial fill upon patient request if the prescription is for a schedule II opioid drug., 1 puffs Inhalation Daily,Instr:j44.9, 155... Start Date: 06/02/23 Status: Ordered atorvastatin 10 mg oral tablet See Instructions, TAKE ONE TABLET BY MOUTH EVERY DAY, # 90 Unknown, 1 Refills, Maintenance, 12/09/23 21:07:00 EST, [facility] # [facility], 155.4, cm, 12/07/23 14:31:00 EST, Height, 75, kg, 12/07/23 14:31:00 EST, Dry Weight Start Date: 12/09/23 Status: Ordered [place] Saline Nasal Mist 4 times a day, 0 Refills, Maintenance, 03/30/22 11:55:00 EDT, Partial fill upon patient request if the prescription is for a schedule II opioid drug. Start Date: 03/30/22 Status: Ordered calcium and vitamin D combination 315 mg-200 iu oral tablet 2 tablet, By Mouth, 2 times a day, # 120 tablet, 2 Refills, Maintenance, 12/22/23 13:02:00 EST, Tablet, [facility] # [...] Associate Professional Member Role: PCP Address: Address: [address] [place] [address]- Care Team Related Persons Name: LIBORIO BENNETT
--- OUTSIDE RECORDS SUMMARY | 2024-05-23 12:01 | XMS_ITS | Continuity of Care Document ---
Author Organization [facility] Rex Martinez lt Address [address] [place] [address]- Care Team Providers Care Grants Analyst Name Role Phone Ash MURPHY, Dory Mckeon Primary Care Physician [place] [facility] [place]23 [place] 10/22/23 [facility] Rex Adult [address] [place] [address]- Allergies, Adverse Reactions, Alerts Substance Reaction Severity Status doxycycline Unknown Active amoxicillin Active sulfa drugs Rash Active losartan shortness of breath Active penicillins 1 Active 1rash Immunizations Given and Recorded Vaccine Date Status Refusal Reason SARS-CoV-2 (COVID-19) mRNA-1273 vaccine 1 04/27/22 Recorded SARS-CoV-2 (COVID-19) mRNA-1273 vaccine 2 09/25/21 Recorded SARS-CoV-2 (COVID-19) mRNA-1273 vaccine 01/17/21 R ecorded SARS-CoV-2 (COVID-19) mRNA-1273 vaccine 12/18/20 R ecorded pneumococcal 23-valent vaccine 11/07/11 Recorded diphtheria/tetanus/pertussis, acel(DTaP) 11/07/10 Recorded 1Result Comment: [employer] Booster #2 2Result Comment: [employer] #50 Lot [id number] Medications albuterol CFC free 90 mcg/inh inhalation aerosol 2, puffs, Inhalation, Every 4 hours, PRN, # 18 Gm, Refills 5, Tot. Refills 5, Maintenance, 03/04/2210:37:00 EDT, Aerosol, Route to Pharmacy Electronically, [id number], [facility] # [facility], 155.4, cm, 03/04/22 10:34:00 [...] tablet, 1 Refills, Maintenance, 06/14/23 15:31:00 EDT, [facility] # 50, 155.4, cm, 06/02/23 10:49:00 EDT, Height Start Date: 06/14/23 Status: Ordered [place] Saline Nasal Mist 4 times a day, 0 Refills, Maintenance, 03/30/22 11:55:00 EDT, Partial fill upon patient request if the prescription is for a schedule II opioid drug. Start Date: 03/30/22 Status: Ordered chlorthalidone 25 mg oral tablet 1, tablet, By Mouth, Daily, # 30 tablet, Refills 5, Maintenance, 07/22/23 8:44:00 EDT, Route to Pharmacy Electronically, [facility] # [facility], 155.4, cm, 07/20/23 10:03:00 EDT, Height Start Date: 07/22/23 Status: Ordered Nasacort Allergy 24HR 55 mcg/inh nasal spray 2 sprays, Nares, Both, Daily, # 16.5 Gm, 5 Refills, Maintenance, 12/28/19 10:55:00 EST, [facility] # 50, 2 sprays [...] Personnel Name: Ash MURPHY, Dory Mckeon Position: [facility] PCO Associate Professional Member Role: PCP Address: Address: [address] [place] [address]- Care Team Related Persons Name: LIBORIO BENNETT
--- OUTSIDE RECORDS SUMMARY | 2024-05-23 12:01 | XMS_ITS | Continuity of Care Document ---
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 Refills 5, Maintenance, 03/04/2210:37:00 EDT, Aerosol, Route to Pharmacy Electronically, [id number], [facility] # [facility], 155.4, cm, 03/04/22 10:34:00 [...] each, 6 Refills, Maintenance, 06/02/23 17:03:00 EDT, Powder,[facility] # [facility], Partial fill upon patient request if the prescription is for a schedule II opioid drug., 1 puffs Inhalation Daily,Instr:j44.9, 155... Start Date: 06/02/23 Status: Ordered atorvastatin 10 mg oral tablet 1 tablet, By Mouth, Daily, # 90 tablet, 1 Refills, Maintenance, 06/14/23 15:31:00 EDT, [facility] # 50, 155.4, cm, 06/02/23 10:49:00 EDT, Height Start Date: 06/14/23 Status: Ordered [place] Saline Nasal Mist 4 times a day, 0 Refills, Maintenance, 03/30/22 11:55:00 EDT, Partial fill upon patient request if the prescription is for a schedule II opioid drug. Start Date: 03/30/22 Status: Ordered chlorthalidone 25 mg oral tablet 1, tablet, By Mouth, Daily, # 30 tablet, Refills 5, Maintenance, 07/22/23 8:44:00 EDT, Route to Pharmacy Electronically, [facility] # [facility], 155.4, cm, 07/20/23 10:03:00 EDT, Height Start Date: 07/22/23 Status: Ordered Nasacort Allergy 24HR 55 mcg/inh nasal spray 2 sprays, Nares, Both, Daily, # 16.5 Gm, 5 Refills, Maintenance, 12/28/19 10:55:00 EST, [facility] # [facility], 2 sprays [...] Personnel Name: Ash MURPHY, Dory Mckeon Position: [facility] PCO Associate Professional Member Role: PCP Address: Address: [address] [place] [address]- Care Team Related Persons Name: LIBORIO BENNETT
--- OUTSIDE RECORDS SUMMARY | 2024-05-23 12:01 | XMS_ITS | Continuity of Care Document ---
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 Refills 5, Maintenance, 03/04/2210:37:00 EDT, Aerosol, Route to Pharmacy Electronically, [id number], [facility] # [facility], 155.4, cm, 03/04/22 10:34:00 [...] each, 6 Refills, Maintenance, 06/02/23 17:03:00 EDT, Powder,[facility] # [facility], Partial fill upon patient request if the prescription is for a schedule II opioid drug., 1 puffs Inhalation Daily,Instr:j44.9, 155... Start Date: 06/02/23 Status: Ordered atorvastatin 10 mg oral tablet 1 tablet, By Mouth, Daily, # 90 tablet, 1 Refills, Maintenance, 06/14/23 15:31:00 EDT, [facility] # 50, 155.4, cm, 06/02/23 10:49:00 EDT, Height Start Date: 06/14/23 Status: Ordered [place] Saline Nasal Mist 4 times a day, 0 Refills, Maintenance, 03/30/22 11:55:00 EDT, Partial fill upon patient request if the prescription is for a schedule II opioid drug. Start Date: 03/30/22 Status: Ordered chlorthalidone 25 mg oral tablet 1, tablet, By Mouth, Daily, # 30 tablet, Refills 5, Maintenance, 07/22/23 8:44:00 EDT, Route to Pharmacy Electronically, [facility] # [facility], 155.4, cm, 07/20/23 10:03:00 EDT, Height Start Date: 07/22/23 Status: Ordered Nasacort Allergy 24HR 55 mcg/inh nasal spray 2 sprays, Nares, Both, Daily, # 16.5 Gm, 5 Refills, Maintenance, 12/28/19 10:55:00 EST, [facility] # [facility], 2 sprays Nares, [...] Personnel Name: Ash MURPHY, Dory Mckeon Position: [facility] PCO Associate Professional Member Role: PCP Address: Address: [address] [place] [address] Care Team Related Persons Name: LIBORIO BENNETT
--- OUTSIDE RECORDS SUMMARY | 2024-05-23 12:02 | XMS_ITS | Continuity of Care Document ---
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 Refills 5, Maintenance, 03/04/2210:37:00 EDT, Aerosol, Route to Pharmacy Electronically, [id number], [facility] # [facility], 155.4, cm, 03/04/22 10:34:00 [...] each, 6 Refills, Maintenance, 01/13/24 14:36:00 EST, Powder,[facility], Partial fill upon patient request if the prescription is for a schedule II opioid drug., 1 puffs Inhalation Daily,Instr:j44.9, 155... Start Date: 01/13/24 Status: Ordered atorvastatin 10 mg oral tablet See Instructions, TAKE ONE TABLET BY MOUTH EVERY DAY, # 90 Unknown, 1 Refills, Maintenance, 12/09/23 21:07:00 EST, [facility] # [facility], 155.4, cm, 12/07/23 14:31:00 EST, Height, 75, kg, 12/07/23 14:31:00 EST, Dry Weight Start Date: 12/09/23 Status: Ordered [place] Saline Nasal Mist 4 times a day, [...] 12/22/23 13:02:00 EST, Tablet, [facility], [...] 01/18/24 11:14:00 EDT, Route to Pharmacy Electronically, [facility], 155.4, cm, 01/18/24 [...] Professional Member Role: PCP Address: Address: [address] [place] [address]- Care Team Related Persons Name: LIBORIO BENNETT
--- OUTSIDE RECORDS SUMMARY | 2024-05-23 12:02 | XMS_ITS | Continuity of Care Document ---
Author Organization [facility] Address [address] [place] [address]- Care Team Providers Care Aircraft Maintenance Director Name Role Phone Ash MURPHY, Dory Mckeon Primary Care Physician En[place] [facility] [place] Date(s): 01/13/24 - 02/12/24 [facility] [address] [place] [address] Allergies, Adverse Reactions, Alerts Substance Reaction Severity [...] Recorded diphtheria/tetanus/pertussis, acel(DTaP) 11/07/10 Recorded 1Result Comment: [employer] Booster #2 2Result Comment: [employer] store #50 Lot [id number] Medications albuterol CFC free 90 mcg/inh inhalation aerosol 2, puffs, Inhalation, Every 4 hours, PRN, # 18 Gm, Refills 5, Tot. Refills 5, Maintenance, 03/04/2210:37:00 EDT, Aerosol, Route to Pharmacy Electronically, [id number], [facility] # [facility], 155.4, cm, 03/04/22 10:34:00 [...] each, 6 Refills, Maintenance, 01/13/24 14:36:00 EST, Powder,[facility], Partial fill upon patient request if the prescription is for a schedule II opioid drug., 1 puffs Inhalation Daily,Instr:j44.9, 155... Start Date: 01/13/24 Status: Ordered atorvastatin 10 mg oral tablet See Instructions, TAKE ONE TABLET BY MOUTH EVERY DAY, # 90 Unknown, 1 Refills, Maintenance, 12/09/23 21:07:00 EST, [facility], 155.4, cm, 12/07/23 14:31:00 EST, Height, 75, kg, 12/07/23 14:31:00 EST, Dry Weight Start Date: 12/09/23 Status: Ordered [place] Saline Nasal Mist 4 times a day, 0 Refills, Maintenance, 03/30/22 11:55:00 EDT, Partial fill upon patient request if the prescription is for a schedule II opioid drug. Start Date: 03/30/22 Status: Ordered calcium and vitamin D combination 315 mg-200 iu oral tablet 2 tablet, By Mouth, 2 times a day, # 120 tablet, 2 Refills, Maintenance, 12/22/23 13:02:00 EST, Tablet, [facility] # [facility], Partial fill upon patient request if the prescription is for a schedule IIopioid drug., 2 tablet By Mouth 2 times a day,x30 d... Start Date: 12/22/23 Stop Date: 03/21/24 Status: Ordered chlorthalidone 25 mg oral tablet 1, tablet, By Mouth, Daily, # 30 tablet, Refills 5, Tot. Refills 5, Maintenance, 01/18/24 11:14:00 EDT, Route to Pharmacy Electronically, [facility], 155.4, cm, [...] Professional Member Role: PCP Address: Address: [address] [place] [address]- Care Team Related Persons Name: LIBORIO BENNETT
--- OUTSIDE RECORDS SUMMARY | 2024-05-23 12:02 | XMS_ITS | Continuity of Care Document ---
Author Organization [facility] Troy Goodman Martinez lt Address [address] [place] [address]- Care Team Providers Care Duplicator Punch Operator Name Role Phone Ash MURPHY, Dory Mckeon Primary Care Physician [phone] Encounter [facility] Date(s): 01/16/24 - 02/15/24 [facility] Goodman Adult [address] [place] [address]- Allergies, Adverse Reactions, Alerts Substance Reaction Severity [...] Recorded diphtheria/tetanus/pertussis, acel(DTaP) 11/07/10 Recorded 1Result Comment: [employer] Booster #2 2Result Comment: [employer] store #50 Lot [id number] Medications albuterol CFC free 90 mcg/inh inhalation aerosol 2, puffs, Inhalation, Every 4 hours, PRN, # 18 Gm, Refills 5, Tot. Refills 5, Maintenance, 03/04/2210:37:00 EDT, Aerosol, Route to Pharmacy Electronically, [id number], [facility] # [facility], 155.4, cm, 03/04/22 10:34:00 [...] each, 6 Refills, Maintenance, 01/13/24 14:36:00 EST, Powder,[facility] # [facility], Partial fill upon patient request if the prescription is for a schedule II opioid drug., 1 puffs Inhalation Daily,Instr:j44.9, 155... Start Date: 01/13/24 Status: Ordered atorvastatin 10 mg oral tablet See Instructions, TAKE ONE TABLET BY MOUTH EVERY DAY, # 90 Unknown, 1 Refills, Maintenance, 12/09/23 21:07:00 EST, [facility] # [facility], 155.4, cm, 12/07/23 14:31:00 EST, Height, 75, kg, 12/07/23 14:31:00 EST, Dry Weight Start Date: 12/09/23 Status: Ordered [place] Saline Nasal Mist 4 times a day, [...] 12/22/23 13:02:00 EST, Tablet, [facility] # [facility], Partial fill upon patient request if the prescription is for a schedule IIopioid drug., 2 tablet By Mouth 2 times a day,x30 d... Start Date: 12/22/23 Stop Date: 03/21/24 Status: Ordered chlorthalidone 25 mg oral tablet 1, tablet, By Mouth, Daily, # 30 tablet, Refills 5, Tot. Refills 5, Maintenance, 01/18/24 11:14:00 EDT, Route to Pharmacy Electronically, [facility], 155.4, cm, [...] Associate Professional Member Role: PCP Address: Address: [address] [place] [address]- Care Team Related Persons Name: LIBORIO BENNETT
--- OUTSIDE RECORDS SUMMARY | 2024-05-23 12:02 | XMS_ITS | Continuity of Care Document ---
Author Organization [facility] Address [address] [place] [address]- Care Team Providers Care Mems Device Scientist Name Role Phone Ash MURPHY, Dory Mckeon Primary Care Physician [phone] Encounter 11/15/23 - 11/22/23 [facility] [address], [address] [place] [address]- Attending Physician: Luis Armando Cordero MD Admitting Physician: Luis Armando Cordero MD Referring Physician: Luis Armando Cordero MD Allergies, [...] Recorded diphtheria/tetanus/pertussis, acel(DTaP) 11/07/10 Recorded 1Result Comment: [employer] Booster #2 2Result Comment: [employer] store #50 Lot [id number] Medications albuterol CFC free 90 mcg/inh inhalation aerosol 2, puffs, Inhalation, Every 4 hours, PRN, # 18 Gm, Refills 5, Tot. Refills 5, Maintenance, 03/04/2210:37:00 EDT, Aerosol, Route to Pharmacy Electronically, [id number], [facility] # [facility], 155.4, cm, 03/04/22 10:34:00 [...] each, 6 Refills, Maintenance, 06/02/23 17:03:00 EDT, Powder,[facility] # [facility], Partial fill upon patient request if the prescription is for a schedule II opioid drug., 1 puffs Inhalation Daily,Instr:j44.9, 155... Start Date: 06/02/23 Status: Ordered atorvastatin 10 mg oral tablet 1 tablet, By Mouth, Daily, # 90 tablet, 1 Refills, Maintenance, 06/14/23 15:31:00 EDT, [facility] # 50, 155.4, cm, 06/02/23 10:49:00 EDT, Height Start Date: 06/14/23 Status: Ordered [place] Saline Nasal Mist 4 times a day, 0 Refills, Maintenance, 03/30/22 11:55:00 EDT, Partial fill upon patient request if the prescription is for a schedule II opioid drug. Start Date: 03/30/22 Status: Ordered chlorthalidone 25 mg oral tablet 1, tablet, By Mouth, Daily, # 30 tablet, Refills 5, Maintenance, 07/22/23 8:44:00 EDT, Route to Pharmacy Electronically, [facility] # [facility], 155.4, cm, 07/20/23 [...] Confirmed 08/28/15 Active Primary hyperparathyroidism Confirmed Active Results Radiology Reports * Exam Date Time Procedure Performing Provider Status 11/15/23 1:36 PM US Soft Tissue Head/Neck Brandon Chowdhury; Auth (Verified) Notes: (US Soft Tissue Head/Neck) Reason For Exam: Evaluation of thyroid nodules and possible parathyroid adenoma;Other: RESULT: US Soft Tissue Head/Neck US Soft Tissue Head/Neck Reason: Hyperparathyroidism:; Evaluation of thyroid nodules and possible parathyroid adenoma COMPARISON: None FINDINGS: RIGHT THYROID LOBE: 4.1 x 1.4 x 1.6 cm, volume 4.8 cc. Normal homogeneous echotexture. Normal parenchymal vascularity. Scattered subcentimeter nodules which do not meet TI-RADS criteria for imaging follow-up. LEFT THYROID LOBE: 4.4 x 1.2 x 1.1 cm, volume 3.0 cc. Normal homogeneous echotexture. Normal parenchymal vascularity. Scattered subcentimeter nodules which do not meet TI-RADS criteria for imaging follow-up. ISTHMUS: Thickness: 0.4 cm. IMPRESSION: Scattered subcentimeter nodules which do not meet TI-RADS criteria for imaging follow-up. Thyroid gland otherwise normal. TI-RADS 2017 reference: Kerrisler FN, Zoran WD, Yfn EG, et al. ACR Thyroid Imaging, Reporting and Data System (TI-RADS): White Paper of the ACR TI-RADS Committee. J Am Jose Rafael Radiol. Volume 14, Issue 5 , 587 - 595. https://doi.org/10.1016/j.jacr.2017.01.046 ACR TI-RADS recommendations: TR1 and TR2: No FNA or follow-up. TR3: FNA if greater than 2.4 cm, follow-up if 1.5-2.4 cm in 1, 3 and 5 years. TR4: FNA if greater than 1.4 cm, follow-up if 1.0-1.4 cm in 1, 2, 3 and 5 years. TR5: FNA if greater than 0.9 cm, follow-up if 0.5-0.9 cm every year for 5 years. TI-RADS calculator: http://tiradscalculator.com/ I have personally reviewed the images and I agree with this report. WSN: [id number] Ordering Physician: Luis Armando Cordero Dictated By: Radha Stern DO Dictated Date/Time: 11/15/23 2:17 pm Reviewed By: Maulik Johns MD Signed By: Maulik Johns MD Signed Date/Time: 11/15/23 2:22 pm Transcribed By: MARY Transcribed Date/Time: 11/15/23 1:57 pm Social History Social History Type Response Smoking Status Former smoker, quit more than 30 days ago entered on: 06/21/19 Sex Patient Care team information Care Team Personnel Name: Ash MURPHY, Dory Mckeon Position: S PCO Associate Professional Member Role: PCP Address: Address: [address] [place] [address]- Care Team Related Persons Name: LIBORIO BENNETT
--- OUTSIDE RECORDS SUMMARY | 2024-05-23 12:02 | XMS_ITS | Continuity of Care Document ---
Author Organization [facility] Address [address] [place] [address] [address] [place] [address]- Care Team Providers Care College Scouting Coordinator Name Role Phone Ash MURPHY, Dory Mckeon Primary Care Physician Encounter [facility] Date(s): 01/10/24 - 02/09/[address] [place], [place] [address] Allergies, Adverse Reactions, Alerts Substance [...] Recorded diphtheria/tetanus/pertussis, acel(DTaP) 11/07/10 Recorded 1Result Comment: [employer] Booster #2 2Result Comment: [employer] store #50 Lot [id number] Medications albuterol CFC free 90 mcg/inh inhalation aerosol 2, puffs, Inhalation, Every 4 hours, PRN, # 18 Gm, Refills 5, Tot. Refills 5, Maintenance, 03/04/2210:37:00 EDT, Aerosol, Route to Pharmacy Electronically, [id number], [facility] # [facility], 155.4, cm, [...] each, 6 Refills, Maintenance, 01/13/24 14:36:00 EST, Powder,[facility], Partial fill upon patient request if the prescription is for a schedule II opioid drug., 1 puffs Inhalation Daily,Instr:j44.9, 155... Start Date: 01/13/24 Status: Ordered atorvastatin 10 mg oral tablet See Instructions, TAKE ONE TABLET BY MOUTH EVERY DAY, # 90 Unknown, 1 Refills, Maintenance, 12/09/23 21:07:00 EST, [facility] # 50, 155.4, cm, 12/07/23 14:31:00 EST, Height, 75, kg, 12/07/23 14:31:00 EST, Dry Weight Start Date: 12/09/23 Status: Ordered [place] Saline Nasal Mist 4 times a day, 0 Refills, Maintenance, 03/30/22 11:55:00 EDT, Partial fill upon patient request if the prescription is for a schedule II opioid drug. Start Date: 03/30/22 Status: Ordered calcium and vitamin D combination 315 mg-200 iu oral tablet 2 tablet, By Mouth, 2 times a day, # 120 tablet, 2 Refills, Maintenance, 12/22/23 13:02:00 EST, Tablet, [facility] # [facility], Partial fill upon patient request if the prescription is for a schedule IIopioid drug., 2 tablet By Mouth 2 times a day,x30 d... Start Date: 12/22/23 Stop Date: 03/21/24 Status: Ordered chlorthalidone 25 mg oral tablet 1, tablet, By Mouth, Daily, # 30 tablet, Refills 5, Tot. Refills 5, Maintenance, 01/18/24 11:14:00 EDT, Route to Pharmacy Electronically, [facility], 155.4, cm, [...] Associate Professional Member Role: PCP Address: Address: [address] [place] [address]- Care Team Related Persons Name: LIBORIO BENNETT
--- OUTSIDE RECORDS SUMMARY | 2024-05-23 12:02 | XMS_ITS | Continuity of Care Document ---
Author Organization [facility] Address [address] [place] [address] [address] [place] [address]- Care Team Providers Care Enrichment Specialist Name Role Phone Ash MURPHY, Dory Mckeon Primary Care Physician Encounter [facility] Date(s): 01/11/24 - 02/10/[address] [place], [place] [address] Allergies, Adverse Reactions, Alerts Substance Reaction Severity [...] Recorded diphtheria/tetanus/pertussis, acel(DTaP) 11/07/10 Recorded 1Result Comment: [facility] [facility] #2 2Result Comment: [facility] Lot [id number] Medications albuterol CFC free 90 mcg/inh inhalation aerosol 2, puffs, Inhalation, Every 4 hours, PRN, # 18 Gm, Refills 5, Tot. Refills 5, Maintenance, 03/04/2210:37:00 EDT, Aerosol, Route to Pharmacy Electronically, [id number], [facility], 155.4, cm, [...] 01/13/24 14:36:00 EST, Powder,[facility], Partial fill upon patient request if the prescription is for a schedule II opioid drug., 1 puffs Inhalation Daily,Instr:j44.9, 155... Start Date: 01/13/24 Status: Ordered atorvastatin 10 mg oral tablet See Instructions, TAKE ONE TABLET BY MOUTH EVERY DAY, # 90 Unknown, 1 Refills, Maintenance, 12/09/23 21:07:00 EST, [facility] # [facility], 155.4, cm, 12/07/23 14:31:00 EST, Height, 75, kg, 12/07/23 14:31:00 EST, Dry Weight Start Date: 12/09/23 Status: Ordered [place] Saline Nasal Mist 4 times a day, 0 Refills, Maintenance, 03/30/22 11:55:00 EDT, Partial fill upon patient request if the prescription is for a schedule II opioid drug. Start Date: 03/30/22 Status: Ordered calcium and vitamin D combination 315 mg-200 iu oral tablet 2 tablet, By Mouth, 2 times a day, # 120 tablet, 2 Refills, Maintenance, 12/22/23 13:02:00 EST, Tablet, [facility] # [facility], Partial fill upon patient request if the prescription is for a schedule IIopioid drug., 2 tablet By Mouth 2 times a day,x30 d... Start Date: 12/22/23 Stop Date: 03/21/24 Status: Ordered chlorthalidone 25 mg oral tablet 1, tablet, By Mouth, Daily, # 30 tablet, Refills 5, Tot. Refills 5, Maintenance, 01/18/24 11:14:00 EDT, Route to Pharmacy Electronically, [facility], 155.4, cm, 01/18/24 [...] Associate Professional Member Role: PCP Address: Address: [address] [place] [id number]- Care Team Related Persons Name: LIBORIO BENNETT
--- OUTSIDE RECORDS SUMMARY | 2024-05-23 12:02 | XMS_ITS | Continuity of Care Document ---
Author Organization [facility] Address [address] [place] [address]- Care Team Providers Care Wood Carving Machine Operator Name Role Phone Ash MURPHY, Dory Mckeon Primary Care Physician Encounter [facility] [place] Date(s): 01/05/24 - 02/04/[address] [id number] Attending Physician: Admtr, Ar8 Admitting Physician: [...] 2Result Comment: [facility] Lot [id number] Medications albuterol CFC free 90 mcg/inh inhalation aerosol 2, puffs, Inhalation, Every 4 hours, PRN, # 18 Gm, Refills 5, Tot. Refills 5, Maintenance, 03/04/2210:37:00 EDT, Aerosol, Route to Pharmacy Electronically, [id number], [facility] # [facility], 155.4, cm, 03/04/22 [...] each, 6 Refills, Maintenance, 01/13/24 14:36:00 EST, Powder,[facility] # [facility], Partial fill upon patient request if the prescription is for a schedule II opioid drug., 1 puffs Inhalation Daily,Instr:j44.9, 155... Start Date: 01/13/24 Status: Ordered atorvastatin 10 mg oral tablet See Instructions, TAKE ONE TABLET BY MOUTH EVERY DAY, # 90 Unknown, 1 Refills, Maintenance, 12/09/23 21:07:00 EST, [facility] # [facility], 155.4, cm, 12/07/23 14:31:00 EST, Height, 75, kg, 12/07/23 14:31:00 EST, Dry Weight Start Date: 12/09/23 Status: Ordered [place] Saline Nasal Mist 4 times a day, 0 Refills, Maintenance, 03/30/22 11:55:00 EDT, Partial fill upon patient request if the prescription is for a schedule II opioid drug. Start Date: 03/30/22 Status: Ordered calcium and vitamin D combination 315 mg-200 iu oral tablet 2 tablet, By Mouth, 2 times a day, # 120 tablet, 2 Refills, Maintenance, 12/22/23 13:02:00 EST, Tablet, [facility] # [facility], [...] 01/18/24 11:14:00 EDT, Route to Pharmacy Electronically, [facility], 155.4, cm, 01/18/24 [...] Professional Member Role: PCP Address: Address: [address] [place] [id number]- Care Team Related Persons Name: LIBORIO BENNETT
--- OUTSIDE RECORDS SUMMARY | 2024-05-23 12:02 | XMS_ITS | Continuity of Care Document ---
Author Organization [facility] Address [address] [place] [address] [address] [place] [address]- Care Team Providers Care Batteryman Name Role Phone Ash MURPHY, Dory Mckeon Primary Care Physician [place] [facility] [place]18[place] - 11/17/[address] [place], [place] [address] Attending Physician: Admtr, Ar8 Admitting Physician: Admtr, Ar8 Referring Physician: Admtr, Ar8 Allergies, Adverse Reactions, Alerts Substance Reaction Severity Status doxycycline Unknown Active amoxicillin Active penicillins 1 Active sulfa drugs Rash Active losartan shortness of breath Active 1rash Immunizations Given and Recorded Vaccine Date Status Refusal Reason SARS-CoV-2 (COVID-19) mRNA-1273 vaccine 1 04/27/22 Recorded SARS-CoV-2 (COVID-19) mRNA-1273 vaccine 2 09/25/21 Recorded SARS-CoV-2 (COVID-19) mRNA-1273 vaccine 01/17/21 R ecorded SARS-CoV-2 (COVID-19) mRNA-1273 vaccine 12/18/20 R ecorded pneumococcal 23-valent vaccine 11/07/11 Recorded diphtheria/tetanus/pertussis, acel(DTaP) 11/07/10 Recorded 1Result Comment: [facility] #[facility] 2Result Comment: [facility] Lot [id number] Medications albuterol CFC free 90 mcg/inh inhalation aerosol 2, puffs, Inhalation, Every 4 hours, PRN, # 18 Gm, Refills 5, Tot. Refills 5, Maintenance, 03/04/2210:37:00 EDT, Aerosol, Route to Pharmacy Electronically, [id number], [facility] # [facility], 155.4, [...] each, 6 Refills, Maintenance, 06/02/23 17:03:00 EDT, Powder,[facility] # [facility], Partial fill upon patient request if the prescription is for a schedule II opioid drug., 1 puffs Inhalation Daily,Instr:j44.9, 155... Start Date: 06/02/23 Status: Ordered atorvastatin 10 mg oral tablet 1 tablet, By Mouth, Daily, # 90 tablet, 1 Refills, Maintenance, 06/14/23 15:31:00 EDT, [facility] # [facility], 155.4, cm, 06/02/23 10:49:00 EDT, Height Start Date: 06/14/23 Status: Ordered [place] Saline Nasal Mist 4 times a day, 0 Refills, Maintenance, 03/30/22 11:55:00 EDT, Partial fill upon patient request if the prescription is for a schedule II opioid drug. Start Date: 03/30/22 Status: Ordered chlorthalidone 25 mg oral tablet 1, tablet, By Mouth, Daily, # 30 tablet, Refills 5, Maintenance, 07/22/23 8:44:00 EDT, Route to Pharmacy Electronically, [facility] # [facility], 155.4, cm, 07/20/23 [...] Associate Professional Member Role: PCP Address: Address: [address] [place] [id number]- Care Team Related Persons Name: LIBORIO BENNETT
[2024-05-23 12:18] LABS: MANUAL DIFF FLAG NO
[2024-05-23 12:21] LABS: Basophils Absolute Auto 0.1 X10*3/uL (0.0-0.2); Basophils Percent Auto 0.4 % (0-2); Eosinophils Absolute Auto 0.1 X10*3/uL (0.0-0.4); Eosinophils Percent Auto 0.5 % (0-4); Hematocrit 49.5 % (37.0-47.0); Hemoglobin 16.3 g/dl (12.0-16.0); Imm Gran Abs Auto 0.05 X10*3/uL (0.00-0.03); Imm Gran Pct Auto 0.3 % (0.0-0.4); Lymphocytes Absolute Auto 0.8 X10*3/uL (1.2-4.9); Lymphocytes Percent Auto 5.2 % (20-40); Mean Corpuscular HGB Conc 32.9 g/dl (31.0-35.0); Mean Corpuscular Hemoglobin 30.6 pg (27.0-33.0); Mean Corpuscular Volume 92.9 fL (80.0-98.0); Mean Platelet Volume 9.5 fL (9.4-12.3); Monocytes Absolute Auto 0.8 X10*3/uL (0.1-1.2); Monocytes Percent Auto 5.6 % (2-11); Neutrophils Absolute Auto 12.9 x10*3/uL (2.0-8.3); Platelet Count 247 X10*3/uL (160-400); Red Blood Count 5.33 X10*6/uL (4.20-5.50); Red Cell Distribution Width 13.7 % (11.0-16.0); White Blood Count 14.7 X10*3/uL (4.8-10.8)
[2024-05-23 12:40] LABS: Anion Gap 15 (12-20); Blood Urea Nitrogen 19 mg/dL (9-16); Calcium 9.9 mg/dL (8.4-10.2); Carbon Dioxide 30 mmol/L (22-29); Chloride 103 mmol/L (96-108); Creatinine Clr Calc Pharmacy 49.5; Estimated Glomerular Filt Rate > 60; Glucose Random 128 mg/dL (60-115); Potassium 3.9 mmol/L (3.3-5.1); Sodium 144 mmol/L (135-145)
[2024-05-23 12:50] LABS: Troponin-I High Sensitivity < 2.7 ng/L (<3.5-17.0)
--- NOTE | 2024-05-23 12:53 | ED.SOB ---
HPI - SOB/Dyspnea General Chief Complaint: Dyspnea Stated Complaint: SOB PER EMS Time Seen by Provider: 05/23/24 12:35 Source: patient Mode of arrival: ambulatory History of Present Illness ED Provider: Dr Mercer HPI Narrative: 79-year-old female who reports she does carry a diagnosis of COPD, she is not on oxygen at home, but states that for the past few days she has noticed increased shortness of breath but denies any associated chest pain/fever/chills/sore throat or new cough. She otherwise denies any GI or symptoms. Related Data Home Medications ?Medication ?Instructions ?Recorded ?Confirmed albuterol sulfate 90 mcg/actuation 2 puff inhalation Q4H PRN 07/20/23 07/20/23 aerosol inhaler Shortness Of Breath Or Wheezing atorvastatin 10 mg tablet 10 mg PO DAILY 07/20/23 07/20/23 chlorthalidone 25 mg tablet 25 mg PO DAILY 07/20/23 07/20/23 fexofenadine 180 mg tablet 180 mg PO DAILY 07/20/23 07/20/23 triamcinolone acetonide 55 mcg 2 spray intranasal DAILY 07/20/23 07/20/23 nasal spray aerosol (Nasacort Allergy) umeclidinium 62.5 mcg-vilanterol 1 ea inhalation DAILY 07/20/23 07/20/23 25 mcg/actuation powdr for inhalation (Anoro Ellipta) Allergies Allergy/AdvReac Type Severity Reaction Status Date / Time amoxicillin Allergy Intermediate rash/nausea Verified 05/23/24 11:40 losartan Allergy Intermediate Shortness Verified 05/23/24 11:40 of Breath Penicillins Allergy Intermediate Rash/nausea Verified 05/23/24 11:40 Sulfa (Sulfonamide Allergy Intermediate Rash Verified 05/23/24 11:40 Antibiotics) doxycycline Allergy Rash Verified 05/23/24 11:40 Review of Systems Review of Systems: Pertinent positives and negatives as stated in HPI PMFSH Past Medical History Source: nursing notes reviewed Medical History Arthritis Back pain Osteoporosis Elevated cholesterol COPD (chronic obstructive pulmonary disease) Hypertension Asthma Surgical History Hx of tonsillectomy H/O colonoscopy Social History Social History Are you a primary care companion to a significant other at home: No Do you presently have visiting nurse or other home services: No Comment: uses cane on occasion when back bothers her Patient Tobacco Use Status: Former Tobacco user Tobacco use type: Cigarette Smoked in Last 30 Days: No Use of substances other than those prescribed or required for medical reasons: No Advance Directives: No Advance Directives Information Provided: No Do you have a plan to hurt others: No Plan Physical Exam Vital Signs: Vital Signs: Last Vital Signs Temp 97.5 F 05/23/24 11:46 Pulse 96 05/23/24 16:00 Resp 24 H 05/23/24 16:00 BP 174/80 H 05/23/24 15:16 Pulse Ox 92 05/23/24 16:00 O2 Del Method Room Air 05/23/24 16:00 O2 Flow Rate 3 05/23/24 15:49 Oxygen Flow Rate 4 05/23/24 11:38 BMI result Body Mass Index 30.7 VITAL SIGNS: Reviewed. GENERAL: Well developed, well nourished, in no acute distress. HEAD: Normocephalic/atraumatic EYES: PERRLA, EOMI EARS: Ext canals without abnormality NOSE: Nares patent bilateral OROPHARYNX: no oral lesions noted, posterior pharynx clear NECK: Supple, no adenopathy LUNGS: Bibasilar decrease in breath sounds, fine rales noted, no tachypnea but increased work of breathing with any movement. SpO2<91> on 4 L with movement CARDIOVASCULAR: Regular rate and rhythm without noted murmurs, no JVD or lower extremity edema. ABDOMEN: Soft, non-tender, non-distended with bowel sounds. MUSCULOSKELETAL: No tenderness, deformities, or effusions noted on gross inspection. EXTREMITIES: No cyanosis, clubbing or edema. SKIN: Inspection of the skin reveals no rashes NEUROLOGIC: Alert and oriented x 4. Strength and sensation to light touch were grossly intact x 4. Medications Administered Discontinued Medications Generic Name Dose Route Start Last Admin Trade Name Freq PRN Reason Stop Dose Admin Acetaminophen 975 mg 05/23/24 15:08 05/23/24 15:16 Acetaminophen 325 Mg Tablet PO 05/23/24 15:09 975 mg ONCE ONE Administration Albuterol Sulfate 2.5 mg/ 0 mg 05/23/24 13:09 05/23/24 13:18 Albuterol/Ipratropium 3 ml INHALE 05/23/24 13:10 5 dose ONCE ONE Administration Cefepime HCl 1 gm/ Sodium 50 mls @ 100 mls/hr 05/23/24 12:54 05/23/24 14:34 Chloride IV 05/23/24 13:23 Infused ONCE ONE Infusion Methylprednisolone Sodium Succinate 125 mg 05/23/24 12:53 05/23/24 13:28 Methylprednisolone Sod Succ 125 Mg/2 Ml Vial IVPUSH 05/23/24 12:54 125 mg ONCE ONE Administration Medical Decision Making Medical Decision Making [facility] Narrative: 1250: I suspect possible pneumonia versus COPD exacerbation. 79-year-old female with history and clinical presentation, DDX: Viral illness, bacterial pneumonia, COPD exacerbation, low to no clinical suspicion for PE. I reviewed and interpreted all investigations and there is a leukocytosis and elevated hemoglobin but no thrombocytopenia. Patient has no fever, but did receive antibiotics as well as ED bronch and steroids. VBG is negative for respiratory acidosis and pCO2 is consistent with known COPD. Chemistry indices negative for EDILMA/electrolyte derangements and high sensitivity troponin is undetectable and BNP is not consistent with any fluid overload. Viral testing is negative for influenza/RSV/COVID-19 and chest x-ray does not demonstrate any infiltrate or venous congestion otherwise my interpretation is in agreement with radiology's impression. EKG: Normal sinus rhythm, HR-97, no STEMI, IN/QRS/QTC is within normal limits. Patient received ED bronch dilation protocol, steroids, on re-evaluation without supplemental oxygen she becomes very short of breath with tachypnea, she was placed back on oxygen and the results and findings were discussed with her and her daughter at bedside in the understand that she will require admission. I discussed the case with inpatient hospitalist who accepts admission. Differential Diagnosis Differential Diagnoses: The differential diagnosis associated with the presentation includes Please see the discussion above Admission/Observation Consideration of admission/observation: Escalation of care including admission/observation considered Please see the discussion above Consult Healthcare Provider Management of the patient was discussed with: Hospitalist Please see the discussion above Lab Data [facility] Lab Attestation statement: I reviewed the patient's lab results. Please see the discussion above 05/23/24 12:12 05/23/24 12:12 Labs: Lab Results 07/17/24 07/17/24 07/17/24 Range/Units 12:12 13:07 13:10 WBC 14.7 H (4.8-10.8) X10*3/uL RBC 5.33 (4.20-5.50) X10*6/uL Hgb 16.3 H (12.0-16.0) g/dl Hct 49.5 H (37.0-47.0) % MCV 92.9 (80.0-98.0) fL MCH 30.6 (27.0-33.0) pg MCHC 32.9 (31.0-35.0) g/dl RDW 13.7 (11.0-16.0) % Plt Count 247 (160-400) X10*3/uL MPV 9.5 (9.4-12.3) fL Immature Gran % (Auto) 0.3 (0.0-0.4) % Neut % (Auto) 88.0 H (45-73) % Lymph % (Auto) 5.2 L (20-40) % [place] % (Auto) 5.6 (2-11) % Eos % (Auto) 0.5 (0-4) % Baso % (Auto) 0.4 (0-2) % Lymph # (Auto) 0.8 L (1.2-4.9) X10*3/uL [place] # (Auto) 0.8 (0.1-1.2) X10*3/uL Eos # (Auto) 0.1 (0.0-0.4) X10*3/uL Baso # (Auto) 0.1 (0.0-0.2) X10*3/uL Abs Immat Gran (auto) 0.05 H (0.00-0.03) X10*3/uL Absolute Neuts (auto) 12.9 H (2.0-8.3) x10*3/uL Absolute Nucleated RBC 0.000 (0.0-0.012) X10*3/uL Nucleated RBC % (auto) 0.0 (0.0-0.2) /100WBC VBG pH 7.41 (7.32-7.43) VBG pCO2 52 mmHg VBG pO2 37 mmHg VBG HCO3 33 H (22-26) mmol/L VBG O2 Saturation 59.0 % VBG Base Excess 6.9 mmol/L Sodium 144 (135-145) mmol/L Potassium 3.9 (3.3-5.1) mmol/L Chloride 103 (96-108) mmol/L Carbon Dioxide 30 H (22-29) mmol/L Anion Gap 15 (12-20) BUN 19 H (9-16) mg/dL Creatinine 0.86 (0.5-1.4) mg/dL Estim Creat Clear Calc 49.5 Estimated GFR > 60 Random Glucose 128 H (60-115) mg/dL Lactic Acid 1.9 (0.5-2.0) mmol/L Calcium 9.9 D (8.4-10.2) mg/dL Troponin I High Sens < 2.7 (<3.5-17.0) ng/L B-Natriuretic Peptide Cancelled 35 Influenza Type A (PCR) NEGATIVE (Negative) Influenza Type B (PCR) NEGATIVE (Negative) RSV RNA Qual (PCR) NEGATIVE (Negative) SARS-CoV-2 RNA (RT-PCR) NEGATIVE (Negative) Independent Interpretation I performed an independent interpretation of an: EKG Interpretation: Please see the discussion above Radiology Impression Discussion of test interpretation with radiology: I have reviewed the radiologist's reading. Radiologist Impression: Please see the discussion above External Record Review External record reviewed: Outpatient record, Prior outpatient labs and Prior outpatient radiology Chronic Conditions Patient?s care impacted by: Other COPD Critical Care Time Critical Care Time Critical Care Time: Yes Total Critical Care Time: 45 Attestation: I personally attest to this time spent taking care of the patient. Discharge Plan Discharge Clinical Impression: Acute hypoxic respiratory failure, COPD exacerbation Patient Disposition: Admitted As Inpatient Prescriptions: No Action atorvastatin 10 mg tablet 10 mg PO DAILY chlorthalidone 25 mg tablet 25 mg PO DAILY triamcinolone acetonide [Nasacort Allergy] 55 mcg Aerosol,[place] 2 spray INTRANASAL DAILY Rx Instructions: administer into each nostril albuterol sulfate 90 mcg/actuation HFA aerosol inhaler 2 puff inhalation Q4H PRN (Reason: Shortness Of Breath Or Wheezing) Anoro Ellipta 62.5-25 mcg/actuation blister with device 1 ea inhalation DAILY fexofenadine [Christine] 180 mg Tablet 180 mg PO DAILY Print Language: Sinhala
[2024-05-23] MEDS: Albuterol Sulfate 2.5 MG, Albuterol/Iprat 2.5/0.5MG 3 ML 3 ML INHALE (13:18)
[2024-05-23] MEDS: methylPREDNISolone Sod Succ 125 MG/2 ML VIAL IVPUSH (13:28)
[2024-05-23] MEDS: cefEPime HCl 1 GM in 0.9 % Sodium Chloride 50 ML IV (13:28)
[2024-05-23 13:33] LABS: Lactic Acid 1.9 mmol/L (0.5-2.0)
[2024-05-23 13:34] LABS: VBG Base Excess 6.9 mmol/L; VBG HCO3 33 mmol/L (22-26); VBG pCO2 52 mmHg; VBG pH 7.41 (7.32-7.43); VBG pO2 37 mmHg
[2024-05-23 13:37] LABS: Venous Blood Gas Refer to POC result
[2024-05-23 13:39] LABS: B Type Natriuretic Peptide 35 pg/mL (<100)
[2024-05-23 13:53] LABS: Influenza A PCR NEGATIVE (Negative); Influenza B PCR NEGATIVE (Negative); Resp Syncy Virus RNA Qual PCR NEGATIVE (Negative); SARS COV2 PCR INHOUSE NEGATIVE (Negative)
[2024-05-23] MEDS: Acetaminophen 325 MG TABLET 975 MG PO (15:16)
--- NOTE | 2024-05-23 16:59 | P.HPHOSP_ITS ---
History of Present Illness Date of Service: 05/23/24 Attending physician on admission: Tarun Gonzalez Chief Complaint: sob 79 year old female with history of copd, htn, hld, primary hyperparathyroidism, osteoporosis, and allergic rhinitis presented to the ED earlier today for evaluation of shortness of breath that started this morning. She reports she woke up feeling short of breath, got her coffee and used her albuterol but did not experience relief. She describes a sensation of not being able to get enough air. She has had two similar episodes in the last two months but did not require intervention. However, this morning felt worse. She has a chronic cough at baseline that is productive in morning r/t PND that has not changed in quality or severity. Also reports chronic orthopnea that has not changed. No fevers, chills, st, congestion, abd pain, n//v/d, urinary symptoms, lightehadedness, palpitations, chest pain. No acute weight gain or edema. Has been using medications as prescribed. Her daughter reports has been able to head the mild distress and wheezing when pt is talking. Since arrival, pt is hypertensive is 174/80 and tachypneic. Was briefly placed on supplemental O2 but was taken off during exam, desatting to 89%, will place back on 2L O2. Pt is also somewhat anxious as welll and is not keen on admission but is agreeable to treatment. Daughter is at bedside. She has a leukocytosis of 14.7. Renal function baseline, lytes normal. Lactic acid 1.9. Trop undeteactable. VBG reassuring, no acidosis or hypercapnia. Negative for flu, covid, rsv. CXR unremarkable. In the ED, given 125mg methylprednisolone, duoneb, and cefepime. She is a former smoker with 50+ pack year history who follows with [facility] pul and has appt next week. No other substance use. Review of Systems 2 Review of Systems: Yes all other systems are reviewed and are negative [facility] Medical History (Updated 05/23/24 @ 17:13 by TESSIE Jimenez) Arthritis Back pain Osteoporosis Elevated cholesterol COPD (chronic obstructive pulmonary disease) Hypertension Surgical History Hx of tonsillectomy H/O colonoscopy Social History Are you a primary farm or ranch animal caretaker to a significant other at home: No Do you presently have visiting nurse or other home services: No Comment: uses cane on occasion when back bothers her Patient Tobacco Use Status: Former Tobacco user Tobacco use type: Cigarette Smoked in Last 30 Days: No Use of substances other than those prescribed or required for medical reasons: No Advance Directives: No Advance Directives Information Provided: No Do you have a plan to hurt others: No Plan Meds Allergies Allergy/AdvReac Type Severity Reaction Status Date / Time amoxicillin Allergy Intermediate rash/nausea Verified 05/23/24 11:40 losartan Allergy Intermediate Shortness Verified 05/23/24 11:40 of Breath Penicillins Allergy Intermediate Rash/nausea Verified 05/23/24 11:40 Sulfa (Sulfonamide Allergy Intermediate Rash Verified 05/23/24 11:40 Antibiotics) doxycycline Allergy Rash Verified 05/23/24 11:40 Active Medications: Current Medications Acetaminophen (Acetaminophen 325 Mg Tablet) 650 mg PO Q6H PRN PRN Reason: Pain, Mild (Pain Scale 1-3), fever or headache Albuterol/Ipratropium (Albuterol/Iprat 2.5/0.5mg 3 Ml Ampul.Neb) 3 ml INHALE RQ4H WHILE AWAKE MELANIA Calcium Carbonate (Calcium Carbonate 750 Mg Tab.Chew) 750 mg PO Q4H PRN PRN Reason: Heartburn Enoxaparin Sodium (Enoxaparin Sodium 40 Mg/0.4 Ml Syringe) 40 mg SUBCUT Q24H MELANIA Magnesium Hydroxide (Milk Of Magnesia 30 Ml Oral.Susp) 30 ml PO DAILY PRN PRN Reason: Constipation Melatonin (Melatonin 3 Mg Tablet) 6 mg PO BEDTIME PRN PRN Reason: Insomnia Methylprednisolone Sodium Succinate (Methylprednisolone Sod Succ 40 Mg/Ml Vial) 40 mg IVPUSH Q12H MELANIA Sodium Chloride (0.9 % Sodium Chloride Flush 3 Ml Syringe) 3 ml IVFLUSH QSHIFT [facility] Home Medications ?Medication ?Instructions ?Recorded ?Confirmed ?Last Taken ?Type albuterol sulfate 90 mcg/actuation 2 puff inhalation Q4H PRN 07/20/23 07/20/23 Unknown History aerosol inhaler Shortness Of Breath Or Wheezing atorvastatin 10 mg tablet 10 mg PO DAILY 07/20/23 07/20/23 Unknown History chlorthalidone 25 mg tablet 25 mg PO DAILY 07/20/23 07/20/23 Unknown History fexofenadine 180 mg tablet 180 mg PO DAILY 07/20/23 07/20/23 Unknown History triamcinolone acetonide 55 mcg 2 spray intranasal DAILY 07/20/23 07/20/23 07/25/23 History nasal spray aerosol (Nasacort Allergy) umeclidinium 62.5 mcg-vilanterol 1 ea inhalation DAILY 07/20/23 07/20/23 08/08/23 History 25 mcg/actuation powdr for inhalation (Anoro Ellipta) Physical Exam 2 Vital Signs and Narrative: Vital Signs: Last Vital Signs Temp 97.5 F 05/23/24 11:46 Pulse 96 05/23/24 16:00 Resp 24 H 05/23/24 16:00 BP 174/80 H 05/23/24 15:16 Pulse Ox 92 05/23/24 16:00 O2 Del Method Room Air 05/23/24 16:00 O2 Flow Rate 3 05/23/24 15:49 Oxygen Flow Rate 4 05/23/24 11:38 BMI result Body Mass Index 30.7 Constitutional - Awake and Alert, No apparent distress Eyes - PERRLA, EOMI Cardiovascular - S1S2, RRR, No edema Respiratory - Normal lung expansion, Normal respiratory effort, No respiratory distress on 2L, scattered crackles low lobes and a few expiratory wheezes Gastrointestinal - NT / ND; +BS; No rebound or guarding Extremities - no calf tenderness bilaterally, no swelling Skin - Warm/Dry Neurological - Alert & oriented x3 Psychological - Appropriate affect Results Labs 05/23/24 12:12 05/23/24 12:12 Labs: Laboratory Results - last 24 hr 05/23/24 05/23/24 05/23/24 12:12 13:07 13:10 MCV 92.9 MCH 30.6 MCHC 32.9 RDW 13.7 Plt Count 247 MPV 9.5 Immature Gran % (Auto) 0.3 Neut % (Auto) 88.0 H Lymph % (Auto) 5.2 L Marion % (Auto) 5.6 Eos % (Auto) 0.5 Baso % (Auto) 0.4 Lymph # (Auto) 0.8 L Marion # (Auto) 0.8 Eos # (Auto) 0.1 Baso # (Auto) 0.1 Abs Immat Gran (auto) 0.05 H Absolute Neuts (auto) 12.9 H Absolute Nucleated RBC 0.000 Nucleated RBC % (auto) 0.0 VBG pH 7.41 VBG pCO2 52 VBG pO2 37 VBG HCO3 33 H VBG O2 Saturation 59.0 VBG Base Excess 6.9 Anion Gap 15 Estim Creat Clear Calc 49.5 Estimated GFR > 60 Random Glucose 128 H Lactic Acid 1.9 Calcium 9.9 D Troponin I High Sens < 2.7 B-Natriuretic Peptide Cancelled 35 Influenza Type A (PCR) NEGATIVE Influenza Type B (PCR) NEGATIVE RSV RNA Qual (PCR) NEGATIVE SARS-CoV-2 RNA (RT-PCR) NEGATIVE Imaging Radiologist's Impressions: Impressions Chest X-Ray 05/23/24 12:30 IMPRESSION: No acute cardiopulmonary disease. Assessment and Plan (1) COPD exacerbation: Status: Acute (2) Acute hypoxic respiratory failure: Status: Acute Plan 79 year old female with history of copd, htn, hld, primary hyperparathyroidism, osteoporosis, and allergic rhinitis admitted for copd exacerbation with acute hypoxemic respiratory failure. #copd exacerbation with acute hypoxemic respiratory failure and respiratory distress -likely triggered by humidity but r/out viral etiology wt RPP -CXR negative -Leukocytosis 14.5. Tachycardia and tachypnea due to distress/anxiety. HR down in 80s on exam. No sepsis/severe sepsis -IV methylprednisolone 40 mg b.i.d. -DuoNebs q.4h while awake/p.r.n. -no change in quality or severity of chronic cough, antibiotics not indicated -continue maintenance inhalers, antihistamines -follow CBC #HTN -continue chlorthalidone #hld -statin dvt prophylaxis- lovenox full code pt requires inpt stay at least 2 midnigths for management of copd exacebation with respiratory distress and acute hypoxemic respiratory failure requiring supplemental O2, iv steroids, and close monitoring of respiratory status to monitor for and prevent decompensation Quality Stroke Does the patient have a stroke diagnosis?: No VTE Prior VTE?: No VTE Risk Level:: Medical - moderate - high VTE Device Contraindication: Treatment Not Indicated VTE Drug Contraindication: N/A - Med Ordered
[2024-05-23] MEDS: Albuterol/Iprat 2.5/0.5MG 3 ML AMPUL.NEB INHALE ×2 (17:31→19:09)
[2024-05-23] MEDS: Enoxaparin Sodium 40 MG/0.4 ML SYRINGE SUBCUT (18:30)
[2024-05-23] MEDS: 0.9 % Sodium Chloride Flush 3 ML SYRINGE IVFLUSH (21:23)
--- NOTE | 2024-05-23 21:29 | PHA.MEDREC ---
Pharmacy Consult ? Medication Reconciliation Pharmacy has completed the medication reconciliation. Spoke to patient and confirm medication list.
[2024-05-24 03:54] VITALS: BP 138/66; PULSE 88; RESP 18; TEMP 36.1; O2SAT 93
[2024-05-24 06:10] LABS: Basophils Percent Auto 0.1 % (0-2); Hematocrit 45.7 % (37.0-47.0); Hemoglobin 14.8 g/dl (12.0-16.0); Imm Gran Abs Auto 0.06 X10*3/uL (0.00-0.03); Imm Gran Pct Auto 0.7 % (0.0-0.4); Lymphocytes Absolute Auto 0.6 X10*3/uL (1.2-4.9); MANUAL DIFF FLAG SCAN; Mean Corpuscular HGB Conc 32.4 g/dl (31.0-35.0); Mean Corpuscular Hemoglobin 29.6 pg (27.0-33.0); Mean Corpuscular Volume 91.4 fL (80.0-98.0); Monocytes Absolute Auto 0.1 X10*3/uL (0.1-1.2); Monocytes Percent Auto 1.3 % (2-11); Neutrophils Absolute Auto 7.5 x10*3/uL (2.0-8.3); Neutrophils Percent Auto 90.9 % (45-73); Platelet Count 244 X10*3/uL (160-400); SCAN SMEAR FLAG 1; White Blood Count 8.3 X10*3/uL (4.8-10.8)
[2024-05-24 06:16] LABS: Anion Gap 19 (12-20); Blood Urea Nitrogen 21 mg/dL (9-16); Calcium 10.4 mg/dL (8.4-10.2); Carbon Dioxide 27 mmol/L (22-29); Chloride 101 mmol/L (96-108); Creatinine Clr Calc Pharmacy 44.4; Estimated Glomerular Filt Rate 57; Glucose Random 139 mg/dL (60-115); Potassium 4.6 mmol/L (3.3-5.1); Sodium 142 mmol/L (135-145)
[2024-05-24 06:37] LABS: SLIDE REVIEW VERIFIED
[2024-05-24 07:31] VITALS: BP 138/80; PULSE 93; RESP 16; TEMP 36.4; O2SAT 92
[2024-05-24] MEDS: Atorvastatin Calcium 10 MG TABLET PO (08:05)
[2024-05-24] MEDS: Cholecalciferol (Vitamin D3) 25 MCG TABLET PO (08:05)
[2024-05-24] MEDS: 0.9 % Sodium Chloride Flush 3 ML SYRINGE IVFLUSH (08:05)
[2024-05-24] MEDS: methylPREDNISolone Sod Succ 40 MG/ML VIAL IVPUSH (08:11)
[2024-05-24 09:11] LABS: Adenovirus PCR Not Detected (Not Detect.); Bordetella parapertussis PCR Not Detected (Not Detect.); Bordetella pertussis PCR Not Detected (Not Detect.); Chlamydia pneumoniae PCR Not Detected (Not Detect.); Coronavirus 229E PCR Not Detected (Not Detect.); Coronavirus HKU1 PCR Not Detected (Not Detect.); Coronavirus NL63 PCR Not Detected (Not Detect.); Coronavirus OC43 PCR Not Detected (Not Detect.); Human metapneumovirus PCR Not Detected (Not Detect.); Influenza A PCR Not Detected (Not Detect.); Influenza B PCR Not Detected (Not Detect.); Mycoplasma pneumoniae PCR Not Detected (Not Detect.); Parainfluenza 1 PCR Not Detected (Not Detect.); Parainfluenza 2 PCR Not Detected (Not Detect.); Parainfluenza 3 PCR Not Detected (Not Detect.); Parainfluenza 4 PCR Not Detected (Not Detect.); RSV PCR Not Detected (Not Detect.); Rhino/Enterovirus PCR Not Detected (Not Detect.)
[2024-05-24 09:46] LABS: SARS-CoV-2 PCR Not Detected (Not Detect.)
--- NOTE | 2024-05-24 10:41 | P.DS_ITS ---
DS: Providers Provider Date of Service: 05/24/24 Date of admission: 05/23/24 17:19 Primary care physician: Dory Aleman NP DS: Diagnosis Discharge Diagnosis (1) COPD exacerbation: Status: Acute (2) Acute hypoxic respiratory failure: Status: Acute DS: Summary Hospital Course Hospital Course: from initial hpi: 79 year old female with history of copd, htn, hld, primary hyperparathyroidism, osteoporosis, and allergic rhinitis presented to the ED earlier today for evaluation of shortness of breath that started this morning. She reports she woke up feeling short of breath, got her coffee and used her albuterol but did not experience relief. She describes a sensation of not being able to get enough air. She has had two similar episodes in the last two months but did not require intervention. However, this morning felt worse. She has a chronic cough at baseline that is productive in morning r/t PND that has not changed in quality or severity. Also reports chronic orthopnea that has not changed. No fevers, chills, st, congestion, abd pain, n//v/d, urinary symptoms, lightehadedness, palpitations, chest pain. No acute weight gain or edema. Has been using medications as prescribed. Her daughter reports has been able to head the mild distress and wheezing when pt is talking. Since arrival, pt is hypertensive is 174/80 and tachypneic. Was briefly placed on supplemental O2 but was taken off during exam, desatting to 89%, will place back on 2L O2. Pt is also somewhat anxious as welll and is not keen on admission but is agreeable to treatment. Daughter is at bedside. She has a leukocytosis of 14.7. Renal function baseline, lytes normal. Lactic acid 1.9. Trop undeteactable. VBG reassuring, no acidosis or hypercapnia. Negative for flu, covid, rsv. CXR unremarkable. In the ED, given 125mg methylprednisolone, duoneb, and cefepime. She is a former smoker with 50+ pack year history who follows with [facility] pul and has appt next week. No other substance use. hospital course: Patient was admitted for acute hypoxic respiratory failure secondary to COPD with acute decompensation. She was treated with IV steroids, bronchodilators, weaned off O2 and feeling much better. Will be discharged home on 5 days of prednisone. For hypertension was continue chlorthalidone. For hyperlipidemia is continue statin. Time Attestation Discharge Coordination Time (in mins): 33 Quality: Safe Use of Opioids Does Pt have an Active Cancer Diagnosis on the Problem List?: No Quality: Stroke Does the patient have a stroke diagnosis?: No Physical Exam Vital Signs: Vital Signs: Last Vital Signs Temp 97.6 F 05/24/24 07:31 Pulse 93 05/24/24 07:31 Resp 16 05/24/24 07:31 BP 138/80 05/24/24 07:31 Pulse Ox 92 05/24/24 07:31 O2 Del Method Room Air 05/24/24 07:31 O2 Flow Rate 3 05/23/24 15:49 Oxygen Flow Rate 4 05/23/24 11:38 BMI result Body Mass Index 30.2 General: AO X 3, no acute distress Resp: CTA bilateral, no accessory muscles used CVS: S1,S2,RRR GI: soft, non tender, non distended Neuro: motor grossly intact, alert Psych: appropriate affect, appropriate insight DS: Data Data Completed and Pending Labs on day of discharge: Laboratory Results - last 24 hr 05/23/24 05/23/24 05/23/24 12:12 13:07 13:10 WBC 14.7 H RBC 5.33 Hgb 16.3 H Hct 49.5 H MCV 92.9 MCH 30.6 MCHC 32.9 RDW 13.7 Plt Count 247 MPV 9.5 Immature Gran % (Auto) 0.3 Neut % (Auto) 88.0 H Lymph % (Auto) 5.2 L Hayes % (Auto) 5.6 Eos % (Auto) 0.5 Baso % (Auto) 0.4 Lymph # (Auto) 0.8 L Hayes # (Auto) 0.8 Eos # (Auto) 0.1 Baso # (Auto) 0.1 Abs Immat Gran (auto) 0.05 H Absolute Neuts (auto) 12.9 H Absolute Nucleated RBC 0.000 Nucleated RBC % (auto) 0.0 Smear Tech's Comments VBG pH 7.41 VBG pCO2 52 VBG pO2 37 VBG HCO3 33 H VBG O2 Saturation 59.0 VBG Base Excess 6.9 Sodium 144 Potassium 3.9 Chloride 103 Carbon Dioxide 30 H Anion Gap 15 BUN 19 H Creatinine 0.86 Estim Creat Clear Calc 49.5 Estimated GFR > 60 Random Glucose 128 H Lactic Acid 1.9 Calcium 9.9 D Troponin I High Sens < 2.7 B-Natriuretic Peptide Cancelled 35 Respiratory Panel Espinosa Adenovirus (Rapid PCR) B.pert (TEM-PCR) B.parapertussis DNA PCR C. pneumoniae DNA (PCR) Coronavirus OC43 (PCR) Coronavirus HKU1 (PCR) Coronavirus 229E (PCR) Coronavirus NL63 (PCR) Human Metapneumovir PCR Influenza A (RT-PCR) Influenza Type A (PCR) NEGATIVE Influenza B (RT-PCR) Influenza Type B (PCR) NEGATIVE M. pneumoniae (PCR) Parainfluenza 1 (PCR) Parainfluenza 2 (PCR) Parainfluenza 3 (PCR) Parainfluenza 4 (PCR) RSV (PCR) RSV RNA Qual (PCR) NEGATIVE Entero/Rhino (PCR) SARS-CoV-2 RNA (RT-PCR) NEGATIVE 05/23/24 05/24/24 19:46 05:28 WBC 8.3 RBC 5.00 Hgb 14.8 Hct 45.7 MCV 91.4 MCH 29.6 MCHC 32.4 RDW 14.0 Plt Count 244 MPV 10.0 Immature Gran % (Auto) 0.7 H Neut % (Auto) 90.9 H Lymph % (Auto) 7.0 L Hayes % (Auto) 1.3 L Eos % (Auto) 0.0 Baso % (Auto) 0.1 Lymph # (Auto) 0.6 L Hayes # (Auto) 0.1 Eos # (Auto) 0.0 Baso # (Auto) 0.0 Abs Immat Gran (auto) 0.06 H Absolute Neuts (auto) 7.5 Absolute Nucleated RBC 0.000 Nucleated RBC % (auto) 0.0 Smear Tech's Comments VERIFIED VBG pH VBG pCO2 VBG pO2 VBG HCO3 VBG O2 Saturation VBG Base Excess Sodium 142 Potassium 4.6 Chloride 101 Carbon Dioxide 27 Anion Gap 19 BUN 21 H Creatinine 0.95 Estim Creat Clear Calc 44.4 Estimated GFR 57 Random Glucose 139 H Lactic Acid Calcium 10.4 H Troponin I High Sens B-Natriuretic Peptide Respiratory Panel Espinosa See Note Adenovirus (Rapid PCR) Not Detected B.pert (TEM-PCR) Not Detected B.parapertussis DNA PCR Not Detected C. pneumoniae DNA (PCR) Not Detected Coronavirus OC43 (PCR) Not Detected Coronavirus HKU1 (PCR) Not Detected Coronavirus 229E (PCR) Not Detected Coronavirus NL63 (PCR) Not Detected Human Metapneumovir PCR Not Detected Influenza A (RT-PCR) Not Detected Influenza Type A (PCR) Influenza B (RT-PCR) Not Detected Influenza Type B (PCR) M. pneumoniae (PCR) Not Detected Parainfluenza 1 (PCR) Not Detected Parainfluenza 2 (PCR) Not Detected Parainfluenza 3 (PCR) Not Detected Parainfluenza 4 (PCR) Not Detected RSV (PCR) Not Detected RSV RNA Qual (PCR) Entero/Rhino (PCR) Not Detected SARS-CoV-2 RNA (RT-PCR) Not Detected Discharge Plan Discharge Anticipated Discharge Date/Time: 05/24/24 10:39 Patient Disposition: Home, Self-Care Discharge Diagnosis: copd Referrals: Dory Aleman, RESIDENTIAL SALES MANAGER [Primary Care Provider] - 1 Week Discharge Medications: New prednisone 20 mg tablet 40 mg PO DAILY Qty: 10 0RF Continued atorvastatin 10 mg tablet 10 mg PO DAILY chlorthalidone 25 mg tablet 25 mg PO DAILY triamcinolone acetonide [Nasacort Allergy] 55 mcg Aerosol,Sandy 2 spray INTRANASAL DAILY Rx Instructions: administer into each nostril albuterol sulfate 90 mcg/actuation HFA aerosol inhaler 2 puff inhalation Q4H PRN (Reason: Shortness Of Breath Or Wheezing) Anoro Ellipta 62.5-25 mcg/actuation blister with device 1 ea inhalation DAILY fexofenadine 180 mg Tablet 180 mg PO DAILY cholecalciferol (vitamin D3) [Vitamin D3] 25 mcg (1,000 unit) Tablet 25 mcg PO DAILY Discharge Orders: Discharge Order (Routine); Ordered 05/24/24 Ordered By: Tarun Gonzalez Diet: Advance to usual diet Activity on Discharge: As tolerated Stand Alone Forms: Patient Portal Discharge page Print Language: Frisian Care Plan Goals: recovery Health Concerns: copd Plan of Treatment: 5 days prednsione Assessment: see above
--- NOTE | 2024-05-24 11:11 | MHC.CM.PN ---
IMM delivered. Patient lives in a home alone. Functionally independent. Denies use of DME or services. PCP Dory Aleman DERMATOLOGIST AND DERMATOPATHOLOGIST Completed HCP naming HCA's as 1) daughter Shani and 2) son Quinton DP: Patient is medically cleared for dc home self care. Daughter will provide transport ~12pm. RN aware.
[2024-05-24] MEDS: Albuterol/Iprat 2.5/0.5MG 3 ML AMPUL.NEB INHALE (11:42)
[2024-05-24 11:43] VITALS: PULSE 96; RESP 18; O2SAT 94
== END 2024-05-24 14:25 | disposition home or self-care (01) | DRG 190 ==
LOC: HO.ED 16:49 → HO.EDOVER 16:59 → HO.S3 17:35
PROVIDERS: Admitting Provider Physician Assistant; Emergency Provider Student in an Organized Health Care Education/Training Program; PCP Nurse Practitioner Family; Visit Provider Internal Medicine
DX: J44.1 Chronic obstructive pulmonary disease with (acute) exacerbation (principal); J96.01 Acute respiratory failure with hypoxia; E21.0 Primary hyperparathyroidism; I10 Essential (primary) hypertension; E78.5 Hyperlipidemia, unspecified; Z20.822 Contact with and (suspected) exposure to COVID-19; Z87.891 Personal history of nicotine dependence; Z79.899 Other long term (current) drug therapy
CPT/HCPCS: 0241U; 36415; 71045; 80048; 82803; 83605; 83880; 84484; 85025; 87040; 87633; 93005; 94640; 99285; J0692; J1650; J2919

== ENCOUNTER → 2024-05-23 11:53 | Outpatient (BNV) | payer MEDICARE, SELFPAY | PROVIDERS: Admitting Provider Physician Assistant; Emergency Provider Student in an Organized Health Care Education/Training Program; PCP Nurse Practitioner Family; Visit Provider Internal Medicine Cardiovascular Disease | DX: R94.31 Abnormal electrocardiogram [ECG] [EKG] (principal) | CPT/HCPCS: 93010 ==

== ENCOUNTER → 2024-05-23 17:19 | Outpatient (BNV) | payer MEDICARE, SELFPAY | PROVIDERS: Admitting Provider Physician Assistant; Emergency Provider Student in an Organized Health Care Education/Training Program; PCP Nurse Practitioner Family; Visit Provider Physician Assistant | DX: J44.1 Chronic obstructive pulmonary disease with (acute) exacerbation (principal); J96.01 Acute respiratory failure with hypoxia | CPT/HCPCS: 99223; 99239 ==